=== PATIENT | female | born 1955 | race African-American/Black ===

== ENCOUNTER 2017-04-11 13:23 | Inpatient (IN) | payer OTHER ==
[2017-04-11 13:59] VITALS: BMI 19.0
--- NOTE | 2017-04-11 15:00 | HP ---
CIWA Score - CIWA Score Nausea/Vomitin Muscle Tremors: 3 Anxiety: 3 Agitation: 3 Paroxysmal Sweats: 2 Orientation: 0-Oriented Tacttile Disturbances: 2-Mild Itch/Numbness/Burn Auditory Disturbances: 2-Mild Harshness/Frighten Visual Disturbances: 0-None Headache: 2-Mild CIWA-Ar Total Score: 20 Admission ROS BHS - HPI Chief Complaint: i need help to stop drinking alcohol and cocaine Allergies/Adverse Reactions: Allergies Allergy/AdvReac Type Severity Reaction Status Date / Time No Known Drug Allergies Allergy Verified 04/11/17 16:27 erythromycin base AdvReac Severe Nausea Verified 04/11/17 16:27 History of Present Illness: this 61 years old black female with alcohol and cocaine dependence,withdrawal symptom,seeking detox,last in 2015 [facility] type 2 dm neuropathy s/p carpal tunnel surgery right in 2012 s/p neck sugery in 2012 hiv since 1992 weight loss longest period of sobriety for 10 years htn - Ebola screening Have you traveled outside of the country in the last 21 days: No (N) Have you had contact with anyone from an Ebola affected area: No Have you been sick,other than usual withdrawal symptoms: No Do you have a fever: No - Review of Systems Constitutional: Loss of Appetite, Malaise, Night Sweats, Changes in sleep, Weakness, Unintentional Wgt. Loss, Unexplained wgt Loss EENT: reports: Nose Congestion Respiratory: reports: No Symptoms reported, Other (history of asthma) Cardiac: reports: No Symptoms Reported GI: reports: Diarrhea, Nausea, Vomiting, Abdominal cramping : reports: No Symptoms Reported Musculoskeletal: reports: Back Pain, Muscle Pain Integumentary: reports: Dryness Neuro: reports: Headache, Tremors Endocrine: reports: No Symptoms Reported Hematology: reports: Anemia (history), Other (hiv) Psychiatric: reports: Depressed Patient History - Patient Medical History Hx Anemia: Yes (on iron) Hx Asthma: Yes (on albuterol inhaler) Hx Chronic Obstructive Pulmonary Disease (COPD): No Hx Cancer: No Hx Cardiac Disorders: No Hx Congestive Heart Failure: No Hx Hypertension: Yes (on med) Hx Pacemaker: No HX Cerebrovascular Accident: No Hx Seizures: No Hx Dementia: No Hx Diabetes: Yes (on metformin) Hx Gastrointestinal Disorders: Yes (gerd) Hx Liver Disease: No Hx Genitourinary Disorders: No Hx Sexually Transmitted Disorders: No Hx Renal Disease (ESRD): No Hx Thyroid Disease: No Hx Human Immunodeficiency Virus (HIV): Yes (since 1992) Hx Hepatitis C: No Hx Depression: Yes (on med) Hx Suicide Attempt: No Hx Bipolar Disorder: No Hx Schizophrenia: No Other Medical History: no sucidal,no homicidal,hiv,s/p nwck surgery,s/p conization in 1977 - Patient Surgical History Past Surgical History: Yes Hx Neurologic Surgery: Yes (s/p surgery of neck) Other Surgical History: 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 - PPD History Previous Implant?: Yes Documented Results: Positive w/o proof PPD to be Administered?: No - Reproductive History Patient is a Female of Child Bearing Age (11 -55 yrs old): Yes Patient : No - Smoking Cessation Smoking history: Current every day smoker Have you smoked in the past 12 months: Yes Cigars Per Day: 10 Initiated information on smoking cessation: Yes 'Breaking Loose' booklet given: 04/11/17 - Substance & Tx. History Hx Alcohol Use: Yes Hx Substance Use: Yes Substance Use Type: Alcohol, Cocaine Hx Substance Use Treatment: Yes ([facility] in 2017) - Substances Abused Alcohol Route: Oral Frequency: Daily Amount used: 3-4 22 oz beers Age of first use: 19 Date of Last Use: 04/11/17 Crack Route: Smoking Frequency: Daily Amount used: $10 Age of first use: 19 Date of Last Use: 04/11/17 Family Disease History - Family Disease History Family History: Denies Admission Physical Exam [facility] - Vital Signs Vital Signs: Vital Signs - 24 hr 04/11/17 13:56 Temperature 97.8 F Pulse Rate 95 H Respiratory 18 Rate Blood Pressure 123/75 - Physical General Appearance: Yes: Moderate Distress, Tremorous, Irritable, Sweating, Anxious HEENTM: Yes: JAGDEEP, Pharynx Normal, Nasal Congestion Respiratory: Yes: Lungs Clear, Normal Breath Sounds, No Respiratory Distress Neck: Yes: Within Normal Limits, Supple, Trachea in good position Breast: Yes: Breast Exam Deferred Cardiology: Yes: Within Normal Limits, Regular Rhythm, Regular Rate, S1, S2 Abdominal: Yes: Within Normal Limits, Normal Bowel Sounds, Non Tender, Flat, Soft Genitourinary: Yes: Within Normal Limits Back: Yes: Muscle Spasm Musculoskeletal: Yes: Back pain, Muscle Pain Extremities: Yes: Within Normal Limits, Normal Range of Motion, Tremors Neurological: Yes: film developer II-XII NML intact, Alert, Motor Strength 5/5, Other (s/p carpal tunnel syndrome right and neuropathy) Integumentary: Yes: Dry Lymphatic: Yes: Within Normal Limits - Diagnostic (1) Alcohol dependence with uncomplicated withdrawal Current Visit: Yes Status: Acute (2) Cocaine dependence Current Visit: Yes Status: Acute (3) HIV (human immunodeficiency virus infection) Current Visit: Yes Status: Acute (4) Weight loss Current Visit: Yes Status: Acute (5) Depression Current Visit: Yes Status: Acute (6) Nicotine dependence Current Visit: Yes Status: Acute (7) Asthma Current Visit: Yes Status: Acute (8) DM2 (diabetes mellitus, type 2) Current Visit: Yes Status: Acute (9) Essential (primary) hypertension Current Visit: Yes Status: Acute (10) Neuropathy Current Visit: Yes Status: Acute (11) History of carpal tunnel surgery Current Visit: Yes Status: Acute (12) History of carpal tunnel surgery of right wrist Current Visit: Yes Status: Acute (13) History of cervical cancer Current Visit: Yes Status: Acute (14) History of neck surgery Current Visit: Yes Status: Acute Cleared for Admission [facility] - Detox or Rehab [facility] Level of Care: Medically Managed Detox Regimen/Protocol: Librium S Breath Alcohol Content Breath Alcohol Content: 0.033 Urine Pregancy Test - Result Urine Test Results: Negative- NO Line Present Urine Drug Screen - Results Drug Screen Negative: No Urine Drug Screen Results: BAR-Cocaine
[2017-04-11] MEDS ORDERED: chlordiazePOXIDE HCL 25 MG CAPSULE PO ONE (15:39)
[2017-04-11] MEDS ORDERED: LOPERAMIDE HCL 2 MG CAPSULE PO PRN (15:39)
[2017-04-11] MEDS ORDERED: IBUPROFEN 400 MG TABLET (FP) PO PRN (15:39)
[2017-04-11] MEDS ORDERED: hydrOXYzine PAMOATE 25 MG CAPSULE (FP) PO PRN (15:39)
[2017-04-11] MEDS ORDERED: MAGNESIUM HYDROX 2400MG/30ML ORAL SUSPENSION 30 ML CUP PO PRN (15:39)
[2017-04-11] MEDS ORDERED: ACETAMINOPHEN 325 MG TABLET (FP) PO PRN (15:39)
[2017-04-11] MEDS ORDERED: chlordiazePOXIDE HCL 25 MG CAPSULE PO PRN (15:39)
[2017-04-11] MEDS ORDERED: MENTHOL/PHENOL 1 EACH UD MM PRN (15:39)
[2017-04-11] MEDS ORDERED: MAGNESIUM CITRATE 300 ML BOTTLE PO PRN (15:39)
[2017-04-11] MEDS ORDERED: P-EPHED 60MG/TRIPROLIDI 2.5MG TABLET PO PRN (15:39)
[2017-04-11] MEDS ORDERED: ALBUTEROL SO4 18 GM HFA INHALER IH PRN (15:46)
[2017-04-11] MEDS ORDERED: METHADONE HCL 10 MG TABLET (FOR DETOX USE ONLY) PO ONE ×2 (16:45→23:00)
[2017-04-11] MEDS: chlordiazePOXIDE HCL 25 MG CAPSULE PO SCH ×2 (17:36→22:24)
[2017-04-11 22:00] LABS: URINE APPEARANCE CLEAR; URINE BILIRUBIN NEGATIVE (NEGATIVE); URINE BLOOD NEGATIVE (NEGATIVE); URINE COLOR STRAW; URINE GLUCOSE (UA) NEGATIVE (NEGATIVE); URINE KETONE NEGATIVE (NEGATIVE); URINE LEUK ESTERASE NEGATIVE (NEGATIVE); URINE NITRITE NEGATIVE (NEGATIVE); URINE PROTEIN NEGATIVE (NEGATIVE); URINE UROBILINOGEN NEGATIVE mg/dL (0.2-1.0)
[2017-04-11] MEDS ORDERED: GABAPENTIN 1600 MG PO SCH (22:00)
[2017-04-11] MEDS: GABAPENTIN 400 MG CAPSULE (FP) PO SCH (22:24)
[2017-04-11] MEDS: THIAMINE HCL 100 MG TABLET (FP) PO SCH (22:24)
[2017-04-12] MEDS: chlordiazePOXIDE HCL 25 MG CAPSULE PO SCH ×4 (05:28→22:33)
[2017-04-12] MEDS: GABAPENTIN 400 MG CAPSULE (FP) PO SCH ×3 (05:28→22:32)
--- NOTE | 2017-04-12 09:38 | PN ---
S CIWA - CIWA Score Nausea/Vomitin Muscle Tremors: 3 Anxiety: 3 Agitation: 3 Paroxysmal Sweats: 1-Minimal Palms Moist Orientation: 0-Oriented Tacttile Disturbances: 1-Very Mild Itch/Numbness Auditory Disturbances: 1-Very Mild Visual Disturbances: 0-None Headache: 2-Mild CIWA-Ar Total Score: 17 BHS Progress Note (SOAP) Subjective: alert,irritable,anxious,interrupted sleep,tremor,pain in the body Objective: 04/12/17 09:36 Vital Signs Temperature 97.2 F L 04/12/17 06:00 Pulse Rate 83 04/12/17 06:00 Respiratory Rate 18 04/12/17 06:00 Blood Pressure 116/66 04/12/17 06:00 O2 Sat by Pulse Oximetry (%) ekg nsr with pac,lvh no chest pain,no sob,no dizziness Laboratory Last Values POC Glucometer 94 UNITS (80-120) 04/12/17 05:27 Urine Color Straw 04/11/17 21:00 Urine Appearance Clear 04/11/17 21:00 Urine pH 6.0 (5.0-8.0) 04/11/17 21:00 Ur Specific [place] 1.008 (1.001-1.035) 04/11/17 21:00 Urine Protein Negative (NEGATIVE) 04/11/17 21:00 Urine Glucose (UA) Negative (NEGATIVE) 04/11/17 21:00 Urine Ketones Negative (NEGATIVE) 04/11/17 21:00 Urine Blood Negative (NEGATIVE) 04/11/17 21:00 Urine Nitrite Negative (NEGATIVE) 04/11/17 21:00 Urine Bilirubin Negative (NEGATIVE) 04/11/17 21:00 Urine Urobilinogen Negative mg/dL (0.2-1.0) 04/11/17 21:00 labs pending Assessment: 04/12/17 09:38 withdrawal symptom Plan: continue detox,bgm monitoring
[2017-04-12] MEDS ORDERED: GABAPENTIN 400 MG CAPSULE (FP) PO SCH (10:00)
[2017-04-12] MEDS ORDERED: METHADONE HCL 10 MG TABLET (FOR DETOX USE ONLY) PO SCH (10:00)
[2017-04-12] MEDS: ABACAVIR/DOLUTEGRAVIR/LAMIVUDI (TRIUMEQ) TABLET -NF PO SCH (10:40)
[2017-04-12] MEDS: PRENATAL VITAMINS W/ FOLIC ACID TABLET (FP) PO SCH (10:40)
[2017-04-12] MEDS: LOSARTAN POTASSIUM 50 MG TABLET (FP) PO SCH (10:40)
[2017-04-12] MEDS: PANTOPRAZOLE 40 MG TABLET (FP) PO SCH (10:41)
[2017-04-12 10:47] LABS: MCH 31.9 pg (25.7-33.7); MEAN CELL VOLUME 96.8 fl (80-96); MEAN PLT VOLUME 8.2 fl (7.5-11.1); PLATELET COUNT 286 K/MM3 (134-434); RDW 13.8 % (11.6-15.6); WHITE BLOOD COUNT 4.4 K/mm3 (4.0-10.0)
[2017-04-12 11:13] LABS: ALBUMIN 3.1 g/dl (3.4-5.0); ANION GAP 6 (8-16); CALCIUM 9.1 mg/dL (8.5-10.1); CO2 29 mmol/L (21-32); GLUCOSE,RANDOM 106 mg/dL (74-106)
[2017-04-12 11:16] LABS: ALK PHOS 135 U/L (45-117); BILIRUBIN,TOTAL 0.2 mg/dL (0.2-1.0); CREATININE 0.9 mg/dL (0.55-1.02); SGOT/AST 15 U/L (15-37); SGPT/ALT 20 U/L (12-78)
--- NOTE | 2017-04-12 13:34 | CONSULT ---
[facility] Psychiatric Consult - Data Date of interview: 04/12/17 Admission source: [facility] Identifying data: First admission to [facility] for this 61 y/o AA female seeking detox treatment on for alcohol and cocaine (crack) dependence.Patient is ,a mother of two,domiciled,unemployed and supported on SSI benefits. Substance Abuse History: Discussed with patient in this session.Histoy confirmed by patient.Refer to current [facility] report for details : Smoking history : Current every day smoker. Have you smoked in the past 12 months: Yes. Cigars Per Day: 10. Initiated information on smoking cessation: Yes. ' Breaking Loose' booklet given: 04/11/17. - Substance & Tx. History. Hx Alcohol Use: Yes. Hx Substance Use: Yes. Substance Use Type: Alcohol, Cocaine. Hx Substance Use Treatment: Yes ([facility]erry in 2017). - Substances Abused. Alcohol. Route: Oral. Frequency: Daily. Amount used: 3-4 22 oz beers. Age of first use: 19. Date of Last Use: 04/11/17. Crack. Route: Smoking. Frequency: Daily. Amount used: $10. Age of first use: 19. Date of Last Use: 04/11/17 Medical History: Diabetes mellitus,anemia,bronchial asthma,HIV since 1992 (on ART medications),neuropathy,surgery for right carpal tunnel syndrome, hypertension,past history of neck surgery and conization of cervix (cancer) in 1977. Psychiatric History: Diagnosed with MDD but never admitted to a psychiatric inpatient service.Prescribed lexapro 10 mg/day and followed at the [facility] in the [place].Ms Gomez denies history of suicide attempts. Physical/Sexual Abuse/Trauma History: Patient denies history of abuse. Additional Comment: Urine Drug Screen Results: BAR-Cocaine.Noted. Mental Status Exam - Mental Status Exam Alert and Oriented to: Time, Place, Person Cognitive Function: Good Patient Appearance: Well Groomed (thin habitus,frail appearance,looks stated age ) Mood: Hopeful, Euthymic Affect: Appropriate, Normal Range Patient Behavior: Fatigued, Appropriate, Cooperative (friendly on approach) Speech Pattern: Clear, Appropriate Voice Loudness: Normal Thought Process: Intact, Goal Oriented Thought Disorder: Not Present Hallucinations: Denies Suicidal Ideation: Denies Homicidal Ideation: Denies Insight/Judgement: Fair Sleep: Poorly, Difficulty falling asleep Appetite: Good Muscle strength/Tone: Normal Gait/Station: Normal Psychiatric Findings - Problem List ([place] 1, 2,3) (1) Alcohol dependence with uncomplicated withdrawal Current Visit: Yes Status: Acute (2) Cocaine dependence Current Visit: Yes Status: Acute (3) Nicotine dependence Current Visit: Yes Status: Acute (4) MDD (major depressive disorder) Current Visit: Yes Status: Chronic Comment: As per self-report.On lexapro and currently in OPD care at [facility] in the [place]. (5) Insomnia Current Visit: Yes Status: Acute - Initial Treatment Plan Initial Treatment Plan: Psychoeducation.Sleep hygiene.Detoxification in progress.Medications : ambien 5 mg po hs prn + lexapro 10 mg po daily.Side effects/benefits of both drugs are discussed with the patient.She verbalizes consent to follow this careplan.Observation.
[2017-04-12 14:07] LABS: SICKLE CELL SCREEN NEGATIVE (NEGATIVE)
[2017-04-12] MEDS: guaiFENesin/D-METHORPHAN HB 10 ML UNIT-DOSE CUPS PO PRN (15:51)
[2017-04-12] MEDS: MAG HYDROX/AL HYDROX/SIMETH 30 ML UNIT-DOSE CUP PO PRN (19:35)
[2017-04-12] MEDS: ZOLPIDEM TARTRATE 5 MG TABLET PO PRN (22:32)
[2017-04-12] MEDS: THIAMINE HCL 100 MG TABLET (FP) PO SCH (22:33)
[2017-04-12 23:09] LABS: URINE LEUK ESTERASE Negative (NEGATIVE)
[2017-04-13] MEDS: GABAPENTIN 400 MG CAPSULE (FP) PO SCH ×3 (05:56→22:28)
[2017-04-13] MEDS: chlordiazePOXIDE HCL 25 MG CAPSULE PO SCH ×2 (05:56→10:34)
[2017-04-13] MEDS: NICOTINE POLACRILEX 2 MG GUM BC PRN ×2 (06:35→10:00)
[2017-04-13] MEDS: MAG HYDROX/AL HYDROX/SIMETH 30 ML UNIT-DOSE CUP PO PRN (08:24)
[2017-04-13] MEDS ORDERED: METHADONE HCL 5 MG TABLET (FOR DETOX USE ONLY) PO SCH (10:00)
[2017-04-13] MEDS: LOSARTAN POTASSIUM 50 MG TABLET (FP) PO SCH (10:34)
[2017-04-13] MEDS: ABACAVIR/DOLUTEGRAVIR/LAMIVUDI (TRIUMEQ) TABLET -NF PO SCH (10:34)
[2017-04-13] MEDS: PRENATAL VITAMINS W/ FOLIC ACID TABLET (FP) PO SCH (10:34)
[2017-04-13] MEDS: ESCITALOPRAM OXALATE 10 MG TABLET (FP) PO SCH (10:34)
[2017-04-13] MEDS: PANTOPRAZOLE 40 MG TABLET (FP) PO SCH (10:34)
[2017-04-13] MEDS: DOCUSATE SODIUM 100 MG CAPSULE (FP) PO SCH ×2 (10:37→22:29)
[2017-04-13] MEDS: HYDROCORTISONE 1% TOPICAL CREAM 30 GM TUBE TP SCH ×2 (10:37→22:29)
[2017-04-13] MEDS: FERROUS SO4 325 MG TABLET (FP) PO SCH (10:37)
--- NOTE | 2017-04-13 12:29 | PN ---
S CIWA - CIWA Score Nausea/Vomitin-Mild Nausea/No Vomiting Muscle Tremors: 4-Moderate,w/Arms Extend Anxiety: 3 Agitation: 3 Paroxysmal Sweats: 1-Minimal Palms Moist Orientation: 0-Oriented Tacttile Disturbances: 0-None Auditory Disturbances: 0-None Visual Disturbances: 0-None Headache: 0-None Present CIWA-Ar Total Score: 12 BHS Progress Note (SOAP) Subjective: tremor anxiety restlessness sweating Objective: 04/13/17 12:27 Vital Signs Temperature 98.1 F 04/13/17 10:00 Pulse Rate 91 H 04/13/17 10:00 Respiratory Rate 20 04/13/17 10:00 Blood Pressure 131/69 04/13/17 10:00 O2 Sat by Pulse Oximetry (%) Laboratory Last Values WBC 4.4 K/mm3 (4.0-10.0) 04/12/17 08:00 RBC 3.58 M/mm3 (3.60-5.2) L 04/12/17 08:00 Hgb 11.4 GM/dL (10.7-15.3) 04/12/17 08:00 Hct 34.7 % (32.4-45.2) 04/12/17 08:00 MCV 96.8 fl (80-96) H 04/12/17 08:00 MCH 31.9 pg (25.7-33.7) 04/12/17 08:00 MCHC 33.0 g/dl (32.0-36.0) 04/12/17 08:00 RDW 13.8 % (11.6-15.6) 04/12/17 08:00 Plt Count 286 K/MM3 (134-434) 04/12/17 08:00 MPV 8.2 fl (7.5-11.1) 04/12/17 08:00 Sickle Cell Screen Negative (NEGATIVE) 04/12/17 08:00 Sodium 140 mmol/L (136-145) 04/12/17 08:00 Potassium 4.5 mmol/L (3.5-5.1) 04/12/17 08:00 Chloride 105 mmol/L (98-107) 04/12/17 08:00 Carbon Dioxide 29 mmol/L (21-32) 04/12/17 08:00 Anion Gap 6 (8-16) L 04/12/17 08:00 BUN 27 mg/dL (7-18) H 04/12/17 08:00 Creatinine 0.9 mg/dL (0.55-1.02) 04/12/17 08:00 Creat Clearance w eGFR > 60 (>60) 04/12/17 08:00 POC Glucometer 179 UNITS (80-120) 04/13/17 05:54 Random Glucose 106 mg/dL (74-106) 04/12/17 08:00 Calcium 9.1 mg/dL (8.5-10.1) 04/12/17 08:00 Total Bilirubin 0.2 mg/dL (0.2-1.0) 04/12/17 08:00 AST 15 U/L (15-37) 04/12/17 08:00 ALT 20 U/L (12-78) 04/12/17 08:00 Alkaline Phosphatase 135 U/L (45-117) H 04/12/17 08:00 Total Protein 7.0 g/dl (6.4-8.2) 04/12/17 08:00 Albumin 3.1 g/dl (3.4-5.0) L 04/12/17 08:00 Urine Color Straw 04/11/17 21:00 Urine Appearance Clear 04/11/17 21:00 Urine pH 6.0 (5.0-8.0) 04/11/17 21:00 Ur Specific [place] 1.008 (1.001-1.035) 04/11/17 21:00 Urine Protein Negative (NEGATIVE) 04/11/17 21:00 Urine Glucose (UA) Negative (NEGATIVE) 04/11/17 21:00 Urine Ketones Negative (NEGATIVE) 04/11/17 21:00 Urine Blood Negative (NEGATIVE) 04/11/17 21:00 Urine Nitrite Negative (NEGATIVE) 04/11/17 21:00 Urine Bilirubin Negative (NEGATIVE) 04/11/17 21:00 Urine Urobilinogen Negative mg/dL (0.2-1.0) 04/11/17 21:00 Ur Leukocyte Esterase Negative (NEGATIVE) 04/11/17 21:00 RPR Titer Nonreactive (NONREACTIVE) 04/12/17 08:00 lab noted Assessment: 04/13/17 12:28 withdrawal sx Plan: continue detox
[2017-04-13] MEDS: AMMONIUM LACTATE 12% LOTION 225 GM BOTTLE TP SCH ×2 (14:49→22:29)
[2017-04-13] MEDS: FLUTICASONE PROP 0.05% 16 GM NASAL SPRAY NS SCH ×2 (14:49→22:28)
[2017-04-13] MEDS: chlordiazePOXIDE 5 MG CAPSULE PO SCH ×2 (17:40→22:29)
[2017-04-13] MEDS: THIAMINE HCL 100 MG TABLET (FP) PO SCH (22:28)
[2017-04-13] MEDS: ZOLPIDEM TARTRATE 5 MG TABLET PO PRN (22:28)
[2017-04-14] MEDS: chlordiazePOXIDE 5 MG CAPSULE PO SCH ×2 (05:51→10:32)
[2017-04-14] MEDS: GABAPENTIN 400 MG CAPSULE (FP) PO SCH ×3 (05:51→22:28)
[2017-04-14] MEDS: guaiFENesin/D-METHORPHAN HB 10 ML UNIT-DOSE CUPS PO PRN ×2 (06:04→14:11)
[2017-04-14] MEDS: FERROUS SO4 325 MG TABLET (FP) PO SCH (07:11)
[2017-04-14] MEDS: DOCUSATE SODIUM 100 MG CAPSULE (FP) PO SCH ×2 (10:32→22:28)
[2017-04-14] MEDS: ESCITALOPRAM OXALATE 10 MG TABLET (FP) PO SCH (10:32)
[2017-04-14] MEDS: ABACAVIR/DOLUTEGRAVIR/LAMIVUDI (TRIUMEQ) TABLET -NF PO SCH (10:33)
[2017-04-14] MEDS: LOSARTAN POTASSIUM 50 MG TABLET (FP) PO SCH (10:33)
[2017-04-14] MEDS: FLUTICASONE PROP 0.05% 16 GM NASAL SPRAY NS SCH ×2 (10:33→22:27)
[2017-04-14] MEDS: AMMONIUM LACTATE 12% LOTION 225 GM BOTTLE TP SCH ×2 (10:34→22:28)
[2017-04-14] MEDS: PRENATAL VITAMINS W/ FOLIC ACID TABLET (FP) PO SCH (10:35)
[2017-04-14] MEDS: HYDROCORTISONE 1% TOPICAL CREAM 30 GM TUBE TP SCH ×2 (10:35→22:28)
[2017-04-14] MEDS: PANTOPRAZOLE 40 MG TABLET (FP) PO SCH (10:41)
--- NOTE | 2017-04-14 10:58 | PN ---
BHS Progress Note (SOAP) Subjective: acid reflux little shakes Objective: 04/14/17 10:57 Vital Signs Temperature 99.5 F 04/14/17 10:44 Pulse Rate 94 H 04/14/17 10:44 Respiratory Rate 18 04/14/17 10:44 Blood Pressure 141/78 04/14/17 10:44 O2 Sat by Pulse Oximetry (%) aaox3 ambulating no acute distress Assessment: 04/14/17 10:57 mild withdrawal sx Plan: continue detox increase fluids zantac bid d/c in am
[2017-04-14] MEDS: chlordiazePOXIDE HCL 10 MG CAPSULE PO SCH ×2 (17:39→22:28)
[2017-04-14] MEDS: THIAMINE HCL 100 MG TABLET (FP) PO SCH (22:28)
[2017-04-14] MEDS: RANITIDINE HCL 150 MG TABLET (FP) PO SCH (22:28)
[2017-04-14] MEDS: ZOLPIDEM TARTRATE 5 MG TABLET PO PRN (22:28)
--- NOTE | 2017-04-15 01:58 | EKG ---
Test Reason : Blood Pressure : / mmHG Vent. Rate : 093 BPM Atrial Rate : 093 BPM P-R Int : 140 ms QRS Dur : 076 ms QT Int : 360 ms P-R-T Axes : 066 067 063 degrees QTc Int : 447 ms SINUS RHYTHM WITH PREMATURE ATRIAL COMPLEXES POSSIBLE LEFT ATRIAL ENLARGEMENT LEFT VENTRICULAR HYPERTROPHY ABNORMAL ECG NO PREVIOUS ECGS AVAILABLE Confirmed by SERGE ARENAS MD ([id number]) on 04/15/2017 1:57:46 AM Referred By: Confirmed By:SERGE ARENAS MD
[2017-04-15] MEDS: guaiFENesin/D-METHORPHAN HB 10 ML UNIT-DOSE CUPS PO PRN ×2 (02:09→08:26)
[2017-04-15] MEDS: chlordiazePOXIDE HCL 10 MG CAPSULE PO SCH ×2 (05:41→10:39)
[2017-04-15] MEDS: GABAPENTIN 400 MG CAPSULE (FP) PO SCH (05:41)
[2017-04-15] MEDS: FERROUS SO4 325 MG TABLET (FP) PO SCH (07:33)
--- NOTE | 2017-04-15 08:50 | DS ---
[facility] Detox Discharge Summary Admission Date: 04/11/17 Discharge Date: 04/15/17 - History Present History: Alcohol Dependence, Cocaine Dependence - Physical Exam Results Vital Signs: Vital Signs Temperature 98.6 F 04/15/17 06:25 Pulse Rate 82 04/15/17 06:25 Respiratory Rate 18 04/15/17 06:25 Blood Pressure 129/77 04/15/17 06:25 O2 Sat by Pulse Oximetry (%) - Treatment Hospital Course: Detox Protocol Followed, Detoxed Safely, Responded well, Discharged Condition Good, Rehab Referral Accepted - Medication Discharge Medications: Ambulatory Orders Abacavir/Dolutegravir/Lamivudi [Triumeq Tablet] 1 each PO DAILY 04/11/17 Escitalopram Oxalate [Lexapro -] 10 mg PO DAILY 04/11/17 Gabapentin 1,600 mg PO HS 04/11/17 Gabapentin 800 mg PO DAILY 04/11/17 Losartan Potassium [Cozaar -] 50 mg PO DAILY 04/11/17 Metformin Xr [Glucophage *Xr* -] 750 mg PO BID 04/11/17 Omeprazole 40 mg PO DAILY 04/11/17 Escitalopram Oxalate [Lexapro -] 10 mg PO DAILY #30 tablet 04/12/17 - Diagnosis (1) Alcohol dependence with uncomplicated withdrawal Current Visit: Yes Status: Chronic (2) Asthma Current Visit: Yes Status: Chronic Qualifiers: Asthma severity: moderate (3) Cocaine dependence Current Visit: Yes Status: Chronic Qualifiers: Substance use status: uncomplicated Qualified Code(s): F14.20 - Cocaine dependence, uncomplicated (4) DM2 (diabetes mellitus, type 2) Current Visit: Yes Status: Acute Qualifiers: Diabetes mellitus complication status: without complication (5) Depression Current Visit: Yes Status: Acute (6) Essential (primary) hypertension Current Visit: Yes Status: Acute (7) HIV (human immunodeficiency virus infection) Current Visit: Yes Status: Chronic (8) History of carpal tunnel surgery Current Visit: Yes Status: Acute (9) History of carpal tunnel surgery of right wrist Current Visit: Yes Status: Acute (10) History of cervical cancer Current Visit: No Status: Resolved (11) History of neck surgery Current Visit: Yes Status: Acute (12) Insomnia Current Visit: Yes Status: Acute (13) Neuropathy Current Visit: Yes Status: Acute (14) Nicotine dependence Current Visit: Yes Status: Chronic Qualifiers: Nicotine product type: cigarettes Substance use status: uncomplicated Qualified Code(s): F17.210 - Nicotine dependence, cigarettes, uncomplicated (15) Weight loss Current Visit: Yes Status: Acute (16) MDD (major depressive disorder) Current Visit: Yes Status: Chronic - AMA Did Patient Leave Against Medical Advice: No ([facility])
[2017-04-15] MEDS ORDERED: METHADONE HCL 10 MG TABLET (FOR DETOX USE ONLY) PO SCH (10:00)
[2017-04-15] MEDS: DOCUSATE SODIUM 100 MG CAPSULE (FP) PO SCH (10:28)
[2017-04-15] MEDS: LOSARTAN POTASSIUM 50 MG TABLET (FP) PO SCH (10:28)
[2017-04-15] MEDS: PRENATAL VITAMINS W/ FOLIC ACID TABLET (FP) PO SCH (10:28)
[2017-04-15] MEDS: ABACAVIR/DOLUTEGRAVIR/LAMIVUDI (TRIUMEQ) TABLET -NF PO SCH (10:28)
[2017-04-15] MEDS: FLUTICASONE PROP 0.05% 16 GM NASAL SPRAY NS SCH (10:28)
[2017-04-15] MEDS: RANITIDINE HCL 150 MG TABLET (FP) PO SCH (10:28)
[2017-04-15] MEDS: ESCITALOPRAM OXALATE 10 MG TABLET (FP) PO SCH (10:28)
[2017-04-15] MEDS: HYDROCORTISONE 1% TOPICAL CREAM 30 GM TUBE TP SCH (10:30)
[2017-04-15] MEDS: AMMONIUM LACTATE 12% LOTION 225 GM BOTTLE TP SCH (10:30)
[2017-04-15 13:07] VITALS: BP 120/77; PULSE 100; TEMP 98.1
[2017-04-16] MEDS ORDERED: METHADONE HCL 5 MG TABLET (FOR DETOX USE ONLY) PO SCH (06:00)
== END 2017-04-15 13:27 | disposition home or self-care (01) | DRG 774 ==
LOC: EDSEX 13:23 → YASAS 13:23 → Y6N 16:23
PROVIDERS: ADMIT Internal Medicine; ATTEND Internal Medicine
PROC: HZ2ZZZZ Detoxification Services for Substance Abuse Treatment (ICD-10-PCS; principal; 2017-04-11)
DX: F10.230 Alcohol dependence with withdrawal, uncomplicated (principal); F14.20 Cocaine dependence, uncomplicated; F17.210 Nicotine dependence, cigarettes, uncomplicated; F32.9 Major depressive disorder, single episode, unspecified; I10 Essential (primary) hypertension; J45.909 Unspecified asthma, uncomplicated; E11.9 Type 2 diabetes mellitus without complications; Z21 Asymptomatic human immunodeficiency virus [HIV] infection status; G47.00 Insomnia, unspecified; G62.9 Polyneuropathy, unspecified; K21.9 Gastro-esophageal reflux disease without esophagitis; Z85.41 Personal history of malignant neoplasm of cervix uteri; Z79.84 Long term (current) use of oral hypoglycemic drugs; Z87.898 Personal history of other specified conditions
CPT/HCPCS: 36415; 80053; 81003; 85027; 85660; 86593; 86803; 93005; 93010

== ENCOUNTER 2017-04-30 14:21 | Inpatient (IN) | payer OTHER ==
[2017-04-30 14:43] VITALS: BMI 17.7
--- NOTE | 2017-04-30 15:31 | HP ---
CIWA Score - CIWA Score Nausea/Vomitin Muscle Tremors: 3 Anxiety: 3 Agitation: 3 Paroxysmal Sweats: 2 Orientation: 0-Oriented Tacttile Disturbances: 2-Mild Itch/Numbness/Burn Auditory Disturbances: 2-Mild Harshness/Frighten Visual Disturbances: 2-Mild Sensitivity Headache: 2-Mild CIWA-Ar Total Score: 22 Admission ROS BHS - HPI Chief Complaint: i need help to stop drinking alcohol and cocaine Allergies/Adverse Reactions: Allergies Allergy/AdvReac Type Severity Reaction Status Date / Time No Known Drug Allergies Allergy Verified 04/30/17 15:27 erythromycin base AdvReac Severe Nausea Verified 04/30/17 15:27 History of Present Illness: this 61 years old female with alcohol and cocaine dependence,seeking detox,last detox 04/11/17 to 04/15/17 history of hiv since 1992 type 2 dm,anemia,htn, neuropathy htn eczema syncope in the past nicotine dependence longest period of sobriety 10 years depression stated relapsed lately - Ebola screening Have you traveled outside of the country in the last 21 days: No (N) Have you had contact with anyone from an Ebola affected area: No Have you been sick,other than usual withdrawal symptoms: No Do you have a fever: No - Review of Systems Constitutional: Loss of Appetite, Malaise, Night Sweats, Changes in sleep, Weakness, Unintentional Wgt. Loss EENT: reports: Nose Congestion Respiratory: reports: No Symptoms reported Cardiac: reports: Palpitations GI: reports: Nausea, Vomiting, Abdominal cramping : reports: No Symptoms Reported Musculoskeletal: reports: Back Pain, Muscle Pain Integumentary: reports: Dryness Neuro: reports: Headache, Tremors Endocrine: reports: No Symptoms Reported Hematology: reports: No Symptoms Reported, Anemia (hiv), Other Psychiatric: reports: Depressed Patient History - Patient Medical History Hx Anemia: Yes (on iron) Hx Asthma: Yes (on albuterol inhaler) Hx Chronic Obstructive Pulmonary Disease (COPD): No Hx Cancer: No Hx Cardiac Disorders: No Hx Congestive Heart Failure: No Hx Hypertension: Yes (on med) Hx Pacemaker: No HX Cerebrovascular Accident: No Hx Seizures: No Hx Dementia: No Hx Diabetes: Yes (on metformin) Hx Gastrointestinal Disorders: Yes (gerd) Hx Liver Disease: No Hx Genitourinary Disorders: No Hx Sexually Transmitted Disorders: No Hx Renal Disease (ESRD): No Hx Thyroid Disease: No Hx Human Immunodeficiency Virus (HIV): Yes (since 1992) Hx Hepatitis C: No Hx Depression: Yes (on med) Hx Suicide Attempt: No Hx Bipolar Disorder: No Hx Schizophrenia: No Other Medical History: no suicidal,no honicidal - Patient Surgical History Past Surgical History: Yes Hx Neurologic Surgery: Yes (s/p surgery of neck) Other Surgical History: 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 - Reproductive History Patient is a Female of Child Bearing Age (11 -55 yrs old): Yes Patient : No - Smoking Cessation Smoking history: Current every day smoker Have you smoked in the past 12 months: Yes Aproximately how many cigarettes per day: 10 Cigars Per Day: 10 Hx Chewing Tobacco Use: No Initiated information on smoking cessation: Yes 'Breaking Loose' booklet given: 04/30/17 - Substance & Tx. History Hx Alcohol Use: Yes Hx Substance Use: Yes Substance Use Type: Alcohol, Cocaine Hx Substance Use Treatment: Yes ([facility] 04/11/17 to 04/15/17) - Substances Abused Alcohol Route: Oral Frequency: Daily Amount used: 3-4 40 OZ BEER Age of first use: 19 Date of Last Use: 04/30/17 Cocaine Route: Smoking Frequency: Daily Amount used: $10-500 Age of first use: 19 Date of Last Use: 04/29/17 Family Disease History - Family Disease History Family History: Denies Admission Physical Exam BHS - Vital Signs Vital Signs: Vital Signs - 24 hr 04/30/17 14:41 Temperature 99 F Pulse Rate 110 H Respiratory 18 Rate Blood Pressure 140/93 - Physical General Appearance: Yes: Moderate Distress, Tremorous, Irritable, Sweating, Anxious HEENTM: Yes: Normal ENT Inspection, JAGEDEP, Pharynx Normal Respiratory: Yes: Lungs Clear, Normal Breath Sounds, No Respiratory Distress Neck: Yes: Within Normal Limits, Supple, Trachea in good position Breast: Yes: Breast Exam Deferred Cardiology: Yes: Within Normal Limits, Regular Rhythm, Regular Rate, S1, S2 Abdominal: Yes: Within Normal Limits, Normal Bowel Sounds, Non Tender, Flat, Soft Genitourinary: Yes: Within Normal Limits Back: Yes: Muscle Spasm Musculoskeletal: Yes: Back pain, Muscle Pain Extremities: Yes: Tremors 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, Fully Oriented, Alert, Motor Strength 5/5 Integumentary: Yes: Dry Lymphatic: Yes: Within Normal Limits - Diagnostic (1) Alcohol dependence with uncomplicated withdrawal Current Visit: No Status: Chronic (2) DM2 (diabetes mellitus, type 2) Current Visit: No Status: Acute Qualifiers: Diabetes mellitus complication status: without complication (3) Essential (primary) hypertension Current Visit: No Status: Acute (4) History of carpal tunnel surgery Current Visit: No Status: Acute (5) History of carpal tunnel surgery of right wrist Current Visit: No Status: Acute (6) History of neck surgery Current Visit: No Status: Acute (7) Insomnia Current Visit: No Status: Acute (8) Neuropathy Current Visit: No Status: Acute (9) Weight loss Current Visit: No Status: Acute (10) Asthma Current Visit: No Status: Chronic Qualifiers: Asthma severity: moderate (11) Cocaine dependence Current Visit: No Status: Chronic Qualifiers: Substance use status: uncomplicated Qualified Code(s): F14.20 - Cocaine dependence, uncomplicated (12) HIV (human immunodeficiency virus infection) Current Visit: No Status: Chronic (13) MDD (major depressive disorder) Current Visit: No Status: Chronic Comment: As per self-report.On lexapro and currently in OPD care at [facility] in the [place]. (14) Nicotine dependence Current Visit: No Status: Chronic Qualifiers: Nicotine product type: cigarettes Substance use status: uncomplicated Qualified Code(s): F17.210 - Nicotine dependence, cigarettes, uncomplicated (15) History of cervical cancer Current Visit: No Status: Resolved Cleared for Admission S - Detox or Rehab [facility] Level of Care: Medically Managed Detox Regimen/Protocol: Librium S Breath Alcohol Content Breath Alcohol Content: 0 Urine Pregancy Test - Result Urine Test Results: Negative- NO Line Present Urine Drug Screen - Results Drug Screen Negative: No Urine Drug Screen Results: BAR-Cocaine, BZO-Benzodiazepines
[2017-04-30] MEDS ORDERED: ACETAMINOPHEN 325 MG TABLET (FP) PO PRN (15:46)
[2017-04-30] MEDS ORDERED: MAGNESIUM HYDROX 2400MG/30ML ORAL SUSPENSION 30 ML CUP PO PRN (15:46)
[2017-04-30] MEDS ORDERED: MENTHOL/PHENOL 1 EACH UD MM PRN (15:46)
[2017-04-30] MEDS ORDERED: chlordiazePOXIDE HCL 25 MG CAPSULE PO ONE (15:46)
[2017-04-30] MEDS ORDERED: MAGNESIUM CITRATE 300 ML BOTTLE PO PRN (15:46)
[2017-04-30] MEDS ORDERED: chlordiazePOXIDE HCL 25 MG CAPSULE PO PRN (15:46)
[2017-04-30] MEDS ORDERED: LOPERAMIDE HCL 2 MG CAPSULE PO PRN (15:46)
[2017-04-30] MEDS ORDERED: P-EPHED 60MG/TRIPROLIDI 2.5MG TABLET PO PRN (15:46)
[2017-04-30] MEDS ORDERED: MAG HYDROX/AL HYDROX/SIMETH 30 ML UNIT-DOSE CUP PO PRN (15:46)
[2017-04-30] MEDS: chlordiazePOXIDE HCL 25 MG CAPSULE PO SCH ×2 (18:07→22:06)
[2017-04-30] MEDS: NICOTINE 21 MG/24 HOURS TOPICAL PATCH TD SCH (18:10)
[2017-04-30] MEDS: AMMONIUM LACTATE 12% LOTION 225 GM BOTTLE TP SCH (18:10)
--- NOTE | 2017-04-30 19:32 | PN ---
BHS Progress Note Note: RECEIVED NURSE CALL THAT THE PATIENT REPORTS HAVING VAGINAL DISCHARGE REQUESTS VAGINAL CREAM
[2017-04-30] MEDS: FLUTICASONE PROP 0.05% 16 GM NASAL SPRAY NS SCH (22:04)
[2017-04-30] MEDS: ATORVASTATIN CA 20 MG TABLET (FP) PO SCH (22:05)
[2017-04-30] MEDS: THIAMINE HCL 100 MG TABLET (FP) PO SCH (22:05)
[2017-04-30] MEDS: CLOTRIMAZOLE 1% VAGINAL CREAM WITH APPLICATOR 45 GM TUBE VG SCH (22:07)
[2017-04-30] MEDS: HYDROCORTISONE 1% TOPICAL CREAM 30 GM TUBE TP SCH (22:29)
[2017-04-30 23:46] LABS: URINE APPEARANCE TURBID; URINE BILIRUBIN NEGATIVE (NEGATIVE); URINE BLOOD 1+ (NEGATIVE); URINE COLOR YELLOW; URINE GLUCOSE (UA) NEGATIVE (NEGATIVE); URINE KETONE TRACE (NEGATIVE); URINE NITRITE NEGATIVE (NEGATIVE); URINE PROTEIN NEGATIVE (NEGATIVE); URINE UROBILINOGEN NEGATIVE mg/dL (0.2-1.0)
[2017-04-30 23:49] LABS: URINE LEUK ESTERASE 3+ (NEGATIVE)
[2017-05-01 01:17] LABS: URINE BACTERIA RARE /hpf (NONE SEEN)
[2017-05-01] MEDS: chlordiazePOXIDE HCL 25 MG CAPSULE PO SCH ×4 (06:07→22:19)
[2017-05-01] MEDS: guaiFENesin/D-METHORPHAN HB 10 ML UNIT-DOSE CUPS PO PRN (06:08)
[2017-05-01] MEDS: FERROUS SO4 325 MG TABLET (FP) PO SCH (07:10)
--- NOTE | 2017-05-01 08:04 | CONSULT ---
[facility] Psychiatric Consult - Data Date of interview: 05/01/17 Admission source: [facility] Identifying data: This is 61 yearsold female with history of MDD, wityh no psychiatric hospitalization history, with multiple medical history, intoxicated with: Alcohol, Cocaine and Nicotine Substance Abuse History: Smoking history: Current every day smoker. Have you smoked in the past 12 months: Yes. Aproximately how many cigarettes per day: 10. Cigars Per Day: 10. Hx Chewing Tobacco Use: No. Initiated information on smoking cessation: Yes. 'Breaking Loose' booklet given: 04/30/17. - Substance & Tx. History. Hx Alcohol Use: Yes. Hx Substance Use: Yes. Substance Use Type : Alcohol, Cocaine. Hx Substance Use Treatment: Yes ([facility] 04/11/17 to 04/15/17) . - Substances Abused. Alcohol. Route: Oral. Frequency: Daily. Amount used: 3-4 40 OZ BEER. Age of first use: 19. Date of Last Use: 04/30/17. Cocaine. Route: Smoking. Frequency: Daily. Amount used: $10-500. Age of first use: 19. Date of Last Use: 04/29/17 Medical History: Cervical Cancer history, Weight loss history, Asthma, HIV+ hisotry, DM-2, HTN, history of Nec surgery Psychiatric History: Patient reports history of depression,. reports aking prior to admission: Lexapro 10mg poqd. Denies suicidal history Physical/Sexual Abuse/Trauma History: Denies Additional Comment: Lexapro 10mg poqd Mental Status Exam - Mental Status Exam Alert and Oriented to: Person Cognitive Function: Fair Patient Appearance: Unkempt Mood: Anxious Affect: Labile Patient Behavior: Cooperative Speech Pattern: Appropriate Voice Loudness: Normal Thought Process: Goal Oriented Thought Disorder: Being Controlled Hallucinations: Denies Suicidal Ideation: Denies Homicidal Ideation: Denies Insight/Judgement: Fair Sleep: Difficulty falling asleep Appetite: Weight loss Muscle strength/Tone: Normal Gait/Station: Normal Additional Comments: Lexapro 10mg poqd Psychiatric Findings - Problem List ([place] 1, 2,3) (1) Depression Current Visit: No Status: Acute (2) Neuropathy Current Visit: No Status: Acute (3) Alcohol dependence with uncomplicated withdrawal Current Visit: No Status: Chronic (4) Cocaine dependence Current Visit: No Status: Chronic Qualifiers: Substance use status: uncomplicated Qualified Code(s): F14.20 - Cocaine dependence, uncomplicated (5) MDD (major depressive disorder) Current Visit: No Status: Chronic Comment: As per self-report.On lexapro and currently in [facility] care at [facility] in the [place]. (6) Nicotine dependence Current Visit: No Status: Chronic Qualifiers: Nicotine product type: cigarettes Substance use status: uncomplicated Qualified Code(s): F17.210 - Nicotine dependence, cigarettes, uncomplicated (7) Drug-induced mood disorder Current Visit: Yes Status: Acute - Initial Treatment Plan Initial Treatment Plan: Lexapro 10mg poqd
[2017-05-01 09:46] LABS: CHLORIDE 104 mmol/L (98-107); POTASSIUM 4.1 mmol/L (3.5-5.1); SODIUM 136 mmol/L (136-145)
[2017-05-01 09:53] LABS: ALK PHOS 129 U/L (45-117); ANION GAP 7 (8-16); BILIRUBIN,TOTAL 0.4 mg/dL (0.2-1.0); BLOOD UREA NITROGEN 15 mg/dL (7-18); CALCIUM 8.7 mg/dL (8.5-10.1); CO2 25 mmol/L (21-32); CREATININE 0.9 mg/dL (0.55-1.02); GLUCOSE,RANDOM 213 mg/dL (74-106); SGOT/AST 11 U/L (15-37); SGPT/ALT 18 U/L (12-78); TOT PROT 6.9 g/dl (6.4-8.2)
[2017-05-01] MEDS: PATIENT'S OWN MEDICATION (NON-FORMULARY) (Omeprazole [Omeprazole] 40 MG) PO SCH (10:02)
[2017-05-01] MEDS: ABACAVIR/DOLUTEGRAVIR/LAMIVUDI (TRIUMEQ) TABLET -NF PO SCH (10:02)
[2017-05-01] MEDS: FLUTICASONE PROP 0.05% 16 GM NASAL SPRAY NS SCH ×2 (10:02→22:18)
[2017-05-01] MEDS: PRENATAL VITAMINS W/ FOLIC ACID TABLET (FP) PO SCH (10:03)
[2017-05-01] MEDS: HYDROCORTISONE 1% TOPICAL CREAM 30 GM TUBE TP SCH ×2 (10:03→22:19)
[2017-05-01] MEDS: LOSARTAN POTASSIUM 50 MG TABLET (FP) PO SCH (10:03)
[2017-05-01] MEDS: ESCITALOPRAM OXALATE 10 MG TABLET (FP) PO SCH (10:03)
[2017-05-01] MEDS: GABAPENTIN 400 MG CAPSULE (FP) PO SCH (10:05)
[2017-05-01] MEDS: NICOTINE 21 MG/24 HOURS TOPICAL PATCH TD SCH (10:06)
[2017-05-01 10:24] LABS: HEMATOCRIT 32.1 % (32.4-45.2); HEMOGLOBIN 10.5 GM/dL (10.7-15.3); MCH 31.4 pg (25.7-33.7); MCHC 32.7 g/dl (32.0-36.0); MEAN PLT VOLUME 8.4 fl (7.5-11.1); PLATELET COUNT 343 K/MM3 (134-434); RBC 3.35 M/mm3 (3.60-5.2); RDW 13.9 % (11.6-15.6); WHITE BLOOD COUNT 5.9 K/mm3 (4.0-10.0)
--- NOTE | 2017-05-01 10:26 | PN ---
S CIWA - CIWA Score Nausea/Vomitin-No Nausea/No Vomiting Muscle Tremors: 4-Moderate,w/Arms Extend Anxiety: 3 Agitation: 3 Paroxysmal Sweats: 3 Orientation: 0-Oriented Tacttile Disturbances: 0-None Auditory Disturbances: 0-None Visual Disturbances: 0-None Headache: 0-None Present CIWA-Ar Total Score: 13 [facility] Progress Note (SOAP) Subjective: sweats shakes interrupted sleep agitation body aches Objective: 05/01/17 10:25 Vital Signs Temperature 100.2 F H 05/01/17 04:00 Pulse Rate 103 H 05/01/17 04:00 Respiratory Rate 18 05/01/17 04:00 Blood Pressure 140/85 05/01/17 04:00 O2 Sat by Pulse Oximetry (%) Laboratory Tests 04/30/17 04/30/17 05/01/17 15:49 16:40 06:32 Sodium Potassium Chloride Carbon Dioxide Anion Gap BUN Creatinine Creat Clearance w eGFR POC Glucometer 225 162 Random Glucose Calcium Total Bilirubin AST ALT Alkaline Phosphatase Total Protein Albumin Urine Color Yellow Urine Appearance Turbid Urine pH 5.0 Ur Specific [place] 1.023 Urine Protein Negative Urine Glucose (UA) Negative Urine Ketones Trace H Urine Blood 1+ H Urine Nitrite Negative Urine Bilirubin Negative Urine Urobilinogen Negative Urine WBC (Auto) 11 Urine RBC (Auto) 2 Urine Bacteria Rare 05/01/17 07:00 Sodium 136 Potassium 4.1 Chloride 104 Carbon Dioxide 25 Anion Gap 7 L BUN 15 D Creatinine 0.9 Creat Clearance w eGFR > 60 POC Glucometer Random Glucose 213 H D Calcium 8.7 Total Bilirubin 0.4 D AST 11 L D ALT 18 Alkaline Phosphatase 129 H Total Protein 6.9 Albumin 3.0 L Urine Color Urine Appearance Urine pH Ur Specific [place] Urine Protein Urine Glucose (UA) Urine Ketones Urine Blood Urine Nitrite Urine Bilirubin Urine Urobilinogen Urine WBC (Auto) Urine RBC (Auto) Urine Bacteria u/a lab repeated aaox3 ambulating no acute distress Assessment: 05/01/17 10:26 withdrawal sx Plan: continue detox increase fluids labs pending
[2017-05-01] MEDS ORDERED: FLU VACCINE QUAD 60 MCG/0.5 ML (MDV 17-18) IM ONE (12:00)
[2017-05-01] MEDS: IBUPROFEN 400 MG TABLET (FP) PO PRN ×2 (12:30→20:45)
--- NOTE | 2017-05-01 12:33 | EKG ---
Test Reason : Blood Pressure : / mmHG Vent. Rate : 090 BPM Atrial Rate : 090 BPM P-R Int : 138 ms QRS Dur : 074 ms QT Int : 338 ms P-R-T Axes : 059 053 045 degrees QTc Int : 413 ms SINUS RHYTHM WITH PREMATURE ATRIAL COMPLEXES POSSIBLE LEFT ATRIAL ENLARGEMENT LEFT VENTRICULAR HYPERTROPHY NONSPECIFIC ST ABNORMALITY ABNORMAL ECG WHEN COMPARED WITH ECG OF 11-APR-2017 17:28, NO SIGNIFICANT CHANGE WAS FOUND Confirmed by MAGALY TOWNSEND, PATRICK ([id number]) on 05/01/2017 12:33:33 PM Referred By: Confirmed By:PATRICK MCKENZIE MD
[2017-05-01 15:58] LABS: URINE APPEARANCE SLCLOUDY; URINE BILIRUBIN NEGATIVE (NEGATIVE); URINE BLOOD NEGATIVE (NEGATIVE); URINE COLOR LTYELLOW; URINE GLUCOSE (UA) NEGATIVE (NEGATIVE); URINE KETONE NEGATIVE (NEGATIVE); URINE NITRITE NEGATIVE (NEGATIVE); URINE PROTEIN NEGATIVE (NEGATIVE); URINE UROBILINOGEN NEGATIVE mg/dL (0.2-1.0)
[2017-05-01 16:14] LABS: URINE LEUK ESTERASE 3+ (NEGATIVE)
[2017-05-01] MEDS: AMMONIUM LACTATE 12% LOTION 225 GM BOTTLE TP SCH (17:39)
[2017-05-01] MEDS: CLOTRIMAZOLE 1% VAGINAL CREAM WITH APPLICATOR 45 GM TUBE VG SCH (22:18)
[2017-05-01] MEDS: ATORVASTATIN CA 20 MG TABLET (FP) PO SCH (22:19)
[2017-05-01] MEDS: THIAMINE HCL 100 MG TABLET (FP) PO SCH (22:20)
[2017-05-02] MEDS: chlordiazePOXIDE HCL 25 MG CAPSULE PO SCH ×2 (05:41→10:08)
[2017-05-02] MEDS: FERROUS SO4 325 MG TABLET (FP) PO SCH (08:04)
[2017-05-02] MEDS: ESCITALOPRAM OXALATE 10 MG TABLET (FP) PO SCH (10:08)
[2017-05-02] MEDS: FLUTICASONE PROP 0.05% 16 GM NASAL SPRAY NS SCH ×2 (10:08→22:11)
[2017-05-02] MEDS: PRENATAL VITAMINS W/ FOLIC ACID TABLET (FP) PO SCH (10:08)
[2017-05-02] MEDS: GABAPENTIN 400 MG CAPSULE (FP) PO SCH (10:08)
[2017-05-02] MEDS: LOSARTAN POTASSIUM 50 MG TABLET (FP) PO SCH (10:08)
[2017-05-02] MEDS: NICOTINE 21 MG/24 HOURS TOPICAL PATCH TD SCH (10:09)
[2017-05-02] MEDS: HYDROCORTISONE 1% TOPICAL CREAM 30 GM TUBE TP SCH ×2 (10:09→22:11)
[2017-05-02] MEDS: ABACAVIR/DOLUTEGRAVIR/LAMIVUDI (TRIUMEQ) TABLET -NF PO SCH (10:10)
[2017-05-02] MEDS: PATIENT'S OWN MEDICATION (NON-FORMULARY) (Omeprazole [Omeprazole] 40 MG) PO SCH (10:10)
--- NOTE | 2017-05-02 10:26 | PN ---
S CIWA - CIWA Score Nausea/Vomitin-No Nausea/No Vomiting Muscle Tremors: 4-Moderate,w/Arms Extend Anxiety: 2 Agitation: 3 Paroxysmal Sweats: 3 Orientation: 0-Oriented Tacttile Disturbances: 0-None Auditory Disturbances: 0-None Visual Disturbances: 0-None Headache: 0-None Present CIWA-Ar Total Score: 12 S Progress Note (SOAP) Subjective: sweats shakes interrupted sleep body aches tired Objective: 05/02/17 10:25 Vital Signs Temperature 99.3 F 05/02/17 09:39 Pulse Rate 90 05/02/17 09:39 Respiratory Rate 18 05/02/17 09:39 Blood Pressure 135/78 05/02/17 09:39 O2 Sat by Pulse Oximetry (%) Laboratory Tests 04/30/17 04/30/17 05/01/17 15:49 16:40 06:32 WBC RBC Hgb Hct MCV MCH MCHC RDW Plt Count MPV Sodium Potassium Chloride Carbon Dioxide Anion Gap BUN Creatinine Creat Clearance w eGFR POC Glucometer 225 162 Random Glucose Calcium Total Bilirubin AST ALT Alkaline Phosphatase Total Protein Albumin Urine Color Yellow Urine Appearance Turbid Urine pH 5.0 Ur Specific [place] 1.023 Urine Protein Negative Urine Glucose (UA) Negative Urine Ketones Trace H Urine Blood 1+ H Urine Nitrite Negative Urine Bilirubin Negative Urine Urobilinogen Negative Ur Leukocyte Esterase 2+ H Urine WBC (Auto) 11 Urine RBC (Auto) 2 Urine Bacteria Rare RPR Titer 05/01/17 05/01/17 05/01/17 07:00 07:00 07:00 WBC 5.9 D RBC 3.35 L Hgb 10.5 L Hct 32.1 L MCV 96.0 MCH 31.4 MCHC 32.7 RDW 13.9 Plt Count 343 MPV 8.4 Sodium 136 Potassium 4.1 Chloride 104 Carbon Dioxide 25 Anion Gap 7 L BUN 15 D Creatinine 0.9 Creat Clearance w eGFR > 60 POC Glucometer Random Glucose 213 H D Calcium 8.7 Total Bilirubin 0.4 D AST 11 L D ALT 18 Alkaline Phosphatase 129 H Total Protein 6.9 Albumin 3.0 L Urine Color Urine Appearance Urine pH Ur Specific [place] Urine Protein Urine Glucose (UA) Urine Ketones Urine Blood Urine Nitrite Urine Bilirubin Urine Urobilinogen Ur Leukocyte Esterase Urine WBC (Auto) Urine RBC (Auto) Urine Bacteria RPR Titer Nonreactive 05/01/17 05/01/17 05/02/17 12:55 16:38 05:41 WBC RBC Hgb Hct MCV MCH MCHC RDW Plt Count MPV Sodium Potassium Chloride Carbon Dioxide Anion Gap BUN Creatinine Creat Clearance w eGFR POC Glucometer 177 165 Random Glucose Calcium Total Bilirubin AST ALT Alkaline Phosphatase Total Protein Albumin Urine Color Ltyellow Urine Appearance Slcloudy Urine pH 5.0 Ur Specific [place] 1.009 Urine Protein Negative Urine Glucose (UA) Negative Urine Ketones Negative Urine Blood Negative Urine Nitrite Negative Urine Bilirubin Negative Urine Urobilinogen Negative Ur Leukocyte Esterase Urine WBC (Auto) Urine RBC (Auto) Urine Bacteria RPR Titer aaox3 ambulating no acute distress Assessment: 05/02/17 10:26 withdrawal sx Plan: continue detox increase fluids
[2017-05-02] MEDS: IBUPROFEN 400 MG TABLET (FP) PO PRN (16:06)
[2017-05-02] MEDS: chlordiazePOXIDE 5 MG CAPSULE PO SCH ×2 (17:10→22:09)
[2017-05-02] MEDS: AMMONIUM LACTATE 12% LOTION 225 GM BOTTLE TP SCH (17:14)
[2017-05-02] MEDS: THIAMINE HCL 100 MG TABLET (FP) PO SCH (22:08)
[2017-05-02] MEDS: ATORVASTATIN CA 20 MG TABLET (FP) PO SCH (22:08)
[2017-05-02] MEDS: CLOTRIMAZOLE 1% VAGINAL CREAM WITH APPLICATOR 45 GM TUBE VG SCH (22:12)
[2017-05-03] MEDS: chlordiazePOXIDE 5 MG CAPSULE PO SCH ×2 (05:43→10:29)
[2017-05-03] MEDS: FERROUS SO4 325 MG TABLET (FP) PO SCH (07:46)
[2017-05-03] MEDS: HYDROCORTISONE 1% TOPICAL CREAM 30 GM TUBE TP SCH ×2 (10:28→23:12)
[2017-05-03] MEDS: PATIENT'S OWN MEDICATION (NON-FORMULARY) (Omeprazole [Omeprazole] 40 MG) PO SCH (10:28)
[2017-05-03] MEDS: FLUTICASONE PROP 0.05% 16 GM NASAL SPRAY NS SCH ×2 (10:28→23:12)
[2017-05-03] MEDS: LOSARTAN POTASSIUM 50 MG TABLET (FP) PO SCH (10:29)
[2017-05-03] MEDS: PRENATAL VITAMINS W/ FOLIC ACID TABLET (FP) PO SCH (10:29)
[2017-05-03] MEDS: ESCITALOPRAM OXALATE 10 MG TABLET (FP) PO SCH (10:29)
[2017-05-03] MEDS: GABAPENTIN 400 MG CAPSULE (FP) PO SCH (10:29)
[2017-05-03] MEDS: ABACAVIR/DOLUTEGRAVIR/LAMIVUDI (TRIUMEQ) TABLET -NF PO SCH (10:29)
[2017-05-03] MEDS: NICOTINE 21 MG/24 HOURS TOPICAL PATCH TD SCH (11:14)
--- NOTE | 2017-05-03 11:46 | PN ---
S Progress Note (SOAP) Subjective: ALERT,IRRITABLE,INTERRUPTED SLEEP Objective: 05/03/17 11:45 Vital Signs Temperature 98 F 05/03/17 10:17 Pulse Rate 97 H 05/03/17 10:17 Respiratory Rate 18 05/03/17 10:17 Blood Pressure 138/72 05/03/17 10:17 O2 Sat by Pulse Oximetry (%) Assessment: 05/03/17 11:45 WITHDRAWAL SYMPTOM Plan: CONTINUE DETOX,DISCHARGE IN AM
[2017-05-03] MEDS: chlordiazePOXIDE HCL 10 MG CAPSULE PO SCH ×2 (17:23→22:18)
[2017-05-03] MEDS: AMMONIUM LACTATE 12% LOTION 225 GM BOTTLE TP SCH (17:24)
[2017-05-03] MEDS: ATORVASTATIN CA 20 MG TABLET (FP) PO SCH (22:18)
[2017-05-03] MEDS: THIAMINE HCL 100 MG TABLET (FP) PO SCH (22:18)
[2017-05-03] MEDS: IBUPROFEN 400 MG TABLET (FP) PO PRN (22:20)
[2017-05-03] MEDS: CLOTRIMAZOLE 1% VAGINAL CREAM WITH APPLICATOR 45 GM TUBE VG SCH (23:12)
[2017-05-04] MEDS: chlordiazePOXIDE HCL 10 MG CAPSULE PO SCH ×2 (05:42→13:11)
[2017-05-04] MEDS: FERROUS SO4 325 MG TABLET (FP) PO SCH (07:28)
[2017-05-04] MEDS: PRENATAL VITAMINS W/ FOLIC ACID TABLET (FP) PO SCH (10:21)
[2017-05-04] MEDS: ESCITALOPRAM OXALATE 10 MG TABLET (FP) PO SCH (10:21)
[2017-05-04] MEDS: GABAPENTIN 400 MG CAPSULE (FP) PO SCH (10:21)
[2017-05-04] MEDS: LOSARTAN POTASSIUM 50 MG TABLET (FP) PO SCH (10:21)
[2017-05-04] MEDS: PATIENT'S OWN MEDICATION (NON-FORMULARY) (Omeprazole [Omeprazole] 40 MG) PO SCH (10:21)
[2017-05-04] MEDS: NICOTINE 21 MG/24 HOURS TOPICAL PATCH TD SCH (10:22)
[2017-05-04] MEDS: FLUTICASONE PROP 0.05% 16 GM NASAL SPRAY NS SCH ×2 (10:22→23:02)
[2017-05-04] MEDS: ABACAVIR/DOLUTEGRAVIR/LAMIVUDI (TRIUMEQ) TABLET -NF PO SCH (10:22)
[2017-05-04] MEDS: HYDROCORTISONE 1% TOPICAL CREAM 30 GM TUBE TP SCH ×2 (10:22→22:20)
--- NOTE | 2017-05-04 12:35 | DS ---
[facility] Detox Discharge Summary Admission Date: 04/30/17 Discharge Date: 05/04/17 - History Present History: Alcohol Dependence - Physical Exam Results Vital Signs: Vital Signs Temperature 97.9 F 05/04/17 10:00 Pulse Rate 81 05/04/17 10:00 Respiratory Rate 18 05/04/17 10:00 Blood Pressure 136/87 05/04/17 10:00 O2 Sat by Pulse Oximetry (%) Pertinent Admission Physical Exam Findings: withdrawal sx Vital Signs Temperature 97.9 F 05/04/17 10:00 Pulse Rate 81 05/04/17 10:00 Respiratory Rate 18 05/04/17 10:00 Blood Pressure 136/87 05/04/17 10:00 O2 Sat by Pulse Oximetry (%) Laboratory Last Values WBC 5.9 K/mm3 (4.0-10.0) D 05/01/17 07:00 RBC 3.35 M/mm3 (3.60-5.2) L 05/01/17 07:00 Hgb 10.5 GM/dL (10.7-15.3) L 05/01/17 07:00 Hct 32.1 % (32.4-45.2) L 05/01/17 07:00 MCV 96.0 fl (80-96) 05/01/17 07:00 MCH 31.4 pg (25.7-33.7) 05/01/17 07:00 MCHC 32.7 g/dl (32.0-36.0) 05/01/17 07:00 RDW 13.9 % (11.6-15.6) 05/01/17 07:00 Plt Count 343 K/MM3 (134-434) 05/01/17 07:00 MPV 8.4 fl (7.5-11.1) 05/01/17 07:00 Sodium 136 mmol/L (136-145) 05/01/17 07:00 Potassium 4.1 mmol/L (3.5-5.1) 05/01/17 07:00 Chloride 104 mmol/L (98-107) 05/01/17 07:00 Carbon Dioxide 25 mmol/L (21-32) 05/01/17 07:00 Anion Gap 7 (8-16) L 05/01/17 07:00 BUN 15 mg/dL (7-18) D 05/01/17 07:00 Creatinine 0.9 mg/dL (0.55-1.02) 05/01/17 07:00 Creat Clearance w eGFR > 60 (>60) 05/01/17 07:00 POC Glucometer 169 UNITS (80-120) 05/03/17 16:39 Random Glucose 213 mg/dL (74-106) H D 05/01/17 07:00 Calcium 8.7 mg/dL (8.5-10.1) 05/01/17 07:00 Total Bilirubin 0.4 mg/dL (0.2-1.0) D 05/01/17 07:00 AST 11 U/L (15-37) L D 05/01/17 07:00 ALT 18 U/L (12-78) 05/01/17 07:00 Alkaline Phosphatase 129 U/L (45-117) H 05/01/17 07:00 Total Protein 6.9 g/dl (6.4-8.2) 05/01/17 07:00 Albumin 3.0 g/dl (3.4-5.0) L 05/01/17 07:00 Urine Color Ltyellow 05/01/17 12:55 Urine Appearance Slcloudy 05/01/17 12:55 Urine pH 5.0 (5.0-8.0) 05/01/17 12:55 Ur Specific [place] 1.009 (1.001-1.035) 05/01/17 12:55 Urine Protein Negative (NEGATIVE) 05/01/17 12:55 Urine Glucose (UA) Negative (NEGATIVE) 05/01/17 12:55 Urine Ketones Negative (NEGATIVE) 05/01/17 12:55 Urine Blood Negative (NEGATIVE) 05/01/17 12:55 Urine Nitrite Negative (NEGATIVE) 05/01/17 12:55 Urine Bilirubin Negative (NEGATIVE) 05/01/17 12:55 Urine Urobilinogen Negative mg/dL (0.2-1.0) 05/01/17 12:55 Ur Leukocyte Esterase 2+ (NEGATIVE) H 04/30/17 16:40 Urine WBC (Auto) 11 /hpf (3-5) 04/30/17 16:40 Urine RBC (Auto) 2 /hpf (0-3) 04/30/17 16:40 Urine Bacteria Rare /hpf (NONE SEEN) 04/30/17 16:40 RPR Titer Nonreactive (NONREACTIVE) 05/01/17 07:00 lab noted - Treatment Hospital Course: Detox Protocol Followed, Detoxed Safely, Responded well, Discharged Condition Good, Rehab Referral Accepted - Medication Discharge Medications: Ambulatory Orders Abacavir/Dolutegravir/Lamivudi [Triumeq Tablet] 1 each PO DAILY 04/11/17 Omeprazole 40 mg PO DAILY 04/11/17 Fluticasone Prop 0.05% Nasal [Flonase -] 1 spray NS BID #1 spray 04/15/17 Gabapentin 800 mg PO DAILY #30 tablet 04/15/17 Hydrocortisone 1% Cream [Hytone 1% Cream -] 1 applic TP BID #1 tube 04/15/17 Losartan Potassium [Cozaar -] 50 mg PO DAILY #30 tablet 04/15/17 Albuterol Sulfate Inhaler - [Ventolin Hfa Inhaler -] 2 inh PO Q4H PRN 04/30/17 Ammonium Lactate Lotion [Lac-Hydrin 12% Lotion -] 1 applic TP ASDIR 04/30/17 Atorvastatin Calcium 20 mg PO HS 04/30/17 Docusate Sodium [Colace -] 200 mg PO DAILY 04/30/17 Ferrous Sulfate [Iron] 325 mg PO DAILY 04/30/17 Ibuprofen [Motrin -] 400 mg PO TID 04/30/17 Metformin Xr [Glucophage Xr -] 750 mg PO DAILY 04/30/17 Escitalopram Oxalate [Lexapro -] 10 mg PO DAILY #30 tablet 05/01/17 - Diagnosis (1) Alcohol dependence with uncomplicated withdrawal Current Visit: Yes Status: Acute (2) HIV (human immunodeficiency virus infection) Current Visit: Yes Status: Chronic (3) DM2 (diabetes mellitus, type 2) Current Visit: Yes Status: Chronic Qualifiers: Diabetes mellitus complication status: without complication Diabetes mellitus terminal press operator insulin use: without terminal press operator use Qualified Code(s): E11.9 - Type 2 diabetes mellitus without complications (4) Essential (primary) hypertension Current Visit: Yes Status: Chronic (5) Asthma Current Visit: Yes Status: Chronic Qualifiers: Asthma severity: moderate Asthma complication type: uncomplicated (6) Nicotine dependence Current Visit: Yes Status: Acute Qualifiers: Nicotine product type: cigarettes Substance use status: in withdrawal Qualified Code(s): F17.213 - Nicotine dependence, cigarettes, with withdrawal - AMA Did Patient Leave Against Medical Advice: No
--- NOTE | 2017-05-04 14:30 | PN ---
[facility] Progress Note Note: 61 years old underweight female with long history of alcohol addiction, co- occurrent morbidities as hiv hypertension asthma and diabetes as well as depression, discuss aftercare implication with the counselor, for the safety of the patient and efficacy of alcohol detox, patient will be discharged 05/05/16
[2017-05-04] MEDS: AMMONIUM LACTATE 12% LOTION 225 GM BOTTLE TP SCH (17:16)
[2017-05-04] MEDS: ATORVASTATIN CA 20 MG TABLET (FP) PO SCH (22:18)
[2017-05-04] MEDS: THIAMINE HCL 100 MG TABLET (FP) PO SCH (22:18)
[2017-05-04] MEDS: IBUPROFEN 400 MG TABLET (FP) PO PRN (22:19)
[2017-05-04] MEDS: CLOTRIMAZOLE 1% VAGINAL CREAM WITH APPLICATOR 45 GM TUBE VG SCH (23:02)
[2017-05-05] MEDS: IBUPROFEN 400 MG TABLET (FP) PO PRN (05:45)
[2017-05-05] MEDS: FERROUS SO4 325 MG TABLET (FP) PO SCH (08:32)
--- NOTE | 2017-05-05 09:14 | DS ---
[facility] Detox Discharge Summary Admission Date: 04/30/17 Discharge Date: 05/05/17 - History Present History: Alcohol Dependence, Cocaine Dependence - Physical Exam Results Vital Signs: Vital Signs Temperature 96.9 F L 05/05/17 06:10 Pulse Rate 77 05/05/17 06:10 Respiratory Rate 18 05/05/17 06:10 Blood Pressure 143/78 05/05/17 06:10 O2 Sat by Pulse Oximetry (%) - Treatment Hospital Course: Detox Protocol Followed, Detoxed Safely, Responded well, Discharged Condition Good, Rehab Referral Accepted - Medication Discharge Medications: Ambulatory Orders Abacavir/Dolutegravir/Lamivudi [Triumeq Tablet] 1 each PO DAILY 04/11/17 Omeprazole 40 mg PO DAILY 04/11/17 Fluticasone Prop 0.05% Nasal [Flonase -] 1 spray NS BID #1 spray 04/15/17 Hydrocortisone 1% Cream [Hytone 1% Cream -] 1 applic TP BID #1 tube 04/15/17 Ammonium Lactate Lotion [Lac-Hydrin 12% Lotion -] 1 applic TP ASDIR 04/30/17 Docusate Sodium [Colace -] 200 mg PO DAILY 04/30/17 Ferrous Sulfate [Iron] 325 mg PO DAILY 04/30/17 Ibuprofen [Motrin -] 400 mg PO TID 04/30/17 Escitalopram Oxalate [Lexapro -] 10 mg PO DAILY #30 tablet 05/01/17 Albuterol Sulfate Inhaler - [Ventolin Hfa Inhaler -] 2 inh PO Q4H PRN 30 Days # 1 inhaler 05/04/17 Atorvastatin Calcium 20 mg PO HS 14 Days #14 tablet 05/04/17 Gabapentin 800 mg PO DAILY #30 tablet 05/04/17 Losartan Potassium [Cozaar -] 50 mg PO DAILY #30 tablet 05/04/17 Metformin Xr [Glucophage Xr -] 750 mg PO DAILY 14 Days #14 tab.sr.24h 05/04/17 - Diagnosis (1) Drug-induced mood disorder Current Visit: Yes Status: Chronic (2) DM2 (diabetes mellitus, type 2) Current Visit: Yes Status: Chronic Qualifiers: Diabetes mellitus complication status: without complication Diabetes mellitus intermediate frame tender insulin use: without jail use Qualified Code(s): E11.9 - Type 2 diabetes mellitus without complications (3) Depression Current Visit: No Status: Acute (4) Essential (primary) hypertension Current Visit: Yes Status: Chronic (5) History of carpal tunnel surgery Current Visit: No Status: Acute (6) History of carpal tunnel surgery of right wrist Current Visit: No Status: Acute (7) History of neck surgery Current Visit: No Status: Acute (8) Insomnia Current Visit: No Status: Acute (9) Neuropathy Current Visit: No Status: Acute (10) Weight loss Current Visit: No Status: Acute (11) Alcohol dependence with uncomplicated withdrawal Current Visit: Yes Status: Acute (12) Asthma Current Visit: Yes Status: Chronic Qualifiers: Asthma severity: moderate Asthma complication type: uncomplicated (13) Cocaine dependence Current Visit: No Status: Chronic Qualifiers: Substance use status: uncomplicated Qualified Code(s): F14.20 - Cocaine dependence, uncomplicated (14) HIV (human immunodeficiency virus infection) Current Visit: Yes Status: Chronic (15) MDD (major depressive disorder) Current Visit: No Status: Chronic (16) Nicotine dependence Current Visit: Yes Status: Acute Qualifiers: Nicotine product type: cigarettes Substance use status: in withdrawal Qualified Code(s): F17.213 - Nicotine dependence, cigarettes, with withdrawal (17) History of cervical cancer Current Visit: No Status: Chronic - AMA Did Patient Leave Against Medical Advice: No
[2017-05-05] MEDS: PRENATAL VITAMINS W/ FOLIC ACID TABLET (FP) PO SCH (10:55)
[2017-05-05] MEDS: ESCITALOPRAM OXALATE 10 MG TABLET (FP) PO SCH (10:55)
[2017-05-05] MEDS: LOSARTAN POTASSIUM 50 MG TABLET (FP) PO SCH (10:55)
[2017-05-05] MEDS: GABAPENTIN 400 MG CAPSULE (FP) PO SCH (10:55)
[2017-05-05] MEDS: PATIENT'S OWN MEDICATION (NON-FORMULARY) (Omeprazole [Omeprazole] 40 MG) PO SCH (10:56)
[2017-05-05] MEDS: FLUTICASONE PROP 0.05% 16 GM NASAL SPRAY NS SCH (10:56)
[2017-05-05] MEDS: HYDROCORTISONE 1% TOPICAL CREAM 30 GM TUBE TP SCH (10:56)
[2017-05-05] MEDS: ABACAVIR/DOLUTEGRAVIR/LAMIVUDI (TRIUMEQ) TABLET -NF PO SCH (10:56)
[2017-05-05] MEDS: NICOTINE 21 MG/24 HOURS TOPICAL PATCH TD SCH (10:57)
[2017-05-05] MEDS: guaiFENesin/D-METHORPHAN HB 10 ML UNIT-DOSE CUPS PO PRN (10:57)
[2017-05-05 11:00] VITALS: BP 135/80; PULSE 88; TEMP 98.6
== END 2017-05-05 01:50 | disposition other institution (70) | DRG 774 ==
LOC: YASAS 14:21 → Y6N 16:23
PROVIDERS: ADMIT Internal Medicine; ATTEND Internal Medicine
PROC: HZ2ZZZZ Detoxification Services for Substance Abuse Treatment (ICD-10-PCS; principal; 2017-04-30)
DX: F10.230 Alcohol dependence with withdrawal, uncomplicated (principal); F14.20 Cocaine dependence, uncomplicated; F17.210 Nicotine dependence, cigarettes, uncomplicated; F33.9 Major depressive disorder, recurrent, unspecified; F32.9 Major depressive disorder, single episode, unspecified; F19.24 Other psychoactive substance dependence with psychoactive substance-induced mood disorder; G62.9 Polyneuropathy, unspecified; G47.00 Insomnia, unspecified; E11.9 Type 2 diabetes mellitus without complications; Z79.84 Long term (current) use of oral hypoglycemic drugs; Z85.41 Personal history of malignant neoplasm of cervix uteri
CPT/HCPCS: 36415; 80053; 81003; 81015; 82962; 85027; 86593; 93005; 93010

== ENCOUNTER 2017-05-05 14:18 | Inpatient (IN) | payer OTHER ==
--- NOTE | 2017-05-05 15:07 | HP ---
[facility] Rehab Assess/Revision - Admission History Admitted to Rehab from: [facility] [place] Date of Admission to Rehab: 05/05/17 - Findings Detox History & Physical reviewed: Yes Concur with findings: Yes Comments/Additional Findings: for rehab as [facility] Inpatient Rehab Admission - Initial Determination Are CD services needed?: Yes Free of communicable disease: Yes Not in need of hospitalization: Yes - Rehab Admission Criteria Previous failed treatment: Yes Poor recovery environment: Yes Patient is meeting Inpatient Rehab admission criteria:: Yes
[2017-05-05] MEDS ORDERED: LOPERAMIDE HCL 2 MG CAPSULE PO PRN (15:09)
[2017-05-05] MEDS ORDERED: MAGNESIUM CITRATE 300 ML BOTTLE PO PRN (15:09)
[2017-05-05] MEDS ORDERED: MAGNESIUM HYDROX 2400MG/30ML ORAL SUSPENSION 30 ML CUP PO PRN (15:09)
[2017-05-05] MEDS ORDERED: MENTHOL/PHENOL 1 EACH UD MM PRN (15:09)
[2017-05-05] MEDS ORDERED: P-EPHED 60MG/TRIPROLIDI 2.5MG TABLET PO PRN (15:09)
[2017-05-05] MEDS ORDERED: hydrOXYzine PAMOATE 50 MG CAPSULE (FP) PO PRN (15:09)
[2017-05-05] MEDS ORDERED: IBUPROFEN 400 MG TABLET (FP) PO PRN (15:09)
[2017-05-05] MEDS ORDERED: ALBUTEROL SO4 18 GM HFA INHALER IH PRN (15:12)
[2017-05-05] MEDS: NICOTINE 21 MG/24 HOURS TOPICAL PATCH TD SCH (16:00)
[2017-05-05] MEDS ORDERED: PT OWN MED DRAWER 7, Y5N ONE ×2 (16:05→18:14)
[2017-05-05] MEDS: FLUTICASONE PROP 0.05% 16 GM NASAL SPRAY NS SCH (21:30)
[2017-05-05] MEDS: HYDROCORTISONE 1% TOPICAL CREAM 30 GM TUBE TP SCH (21:31)
[2017-05-05] MEDS: CLOTRIMAZOLE 1% VAGINAL CREAM WITH APPLICATOR 45 GM TUBE VG SCH (21:31)
[2017-05-05] MEDS: THIAMINE HCL 100 MG TABLET (FP) PO SCH (21:34)
[2017-05-05] MEDS: ATORVASTATIN CA 20 MG TABLET (FP) PO SCH (21:34)
[2017-05-05] MEDS: guaiFENesin/D-METHORPHAN HB 10 ML UNIT-DOSE CUPS PO PRN (21:58)
[2017-05-06] MEDS ORDERED: PT OWN MED DRAWER 7, Y5N ONE ×3 (06:32→19:32)
[2017-05-06] MEDS: FERROUS SO4 325 MG TABLET (FP) PO SCH (07:31)
[2017-05-06] MEDS: HYDROCORTISONE 1% TOPICAL CREAM 30 GM TUBE TP SCH ×2 (09:47→21:29)
[2017-05-06] MEDS: LOSARTAN POTASSIUM 50 MG TABLET (FP) PO SCH (09:47)
[2017-05-06] MEDS: NICOTINE 21 MG/24 HOURS TOPICAL PATCH TD SCH (09:47)
[2017-05-06] MEDS: FLUTICASONE PROP 0.05% 16 GM NASAL SPRAY NS SCH ×2 (09:47→21:29)
[2017-05-06] MEDS: PRENATAL VITAMINS W/ FOLIC ACID TABLET (FP) PO SCH (09:48)
[2017-05-06] MEDS: PATIENT'S OWN MEDICATION (NON-FORMULARY) (Omeprazole [Omeprazole] 40 MG) PO SCH (09:48)
[2017-05-06] MEDS: ABACAVIR/DOLUTEGRAVIR/LAMIVUDI (TRIUMEQ) TABLET -NF PO SCH (09:48)
[2017-05-06] MEDS ORDERED: FLU VACCINE QUAD 60 MCG/0.5 ML (MDV 17-18) IM ONE (12:00)
[2017-05-06] MEDS ORDERED: PNEUMOC 13-VAL CONJ-DIP CRM/PF 0.5 ML DISP.SYRIN IM ONE (12:00)
[2017-05-06] MEDS: guaiFENesin/D-METHORPHAN HB 10 ML UNIT-DOSE CUPS PO PRN (15:48)
[2017-05-06] MEDS: ESCITALOPRAM OXALATE 10 MG TABLET (FP) PO SCH (17:05)
[2017-05-06] MEDS: AMMONIUM LACTATE 12% LOTION 225 GM BOTTLE TP PRN (17:56)
[2017-05-06] MEDS: THIAMINE HCL 100 MG TABLET (FP) PO SCH (21:27)
[2017-05-06] MEDS: ATORVASTATIN CA 20 MG TABLET (FP) PO SCH (21:27)
[2017-05-06] MEDS: CLOTRIMAZOLE 1% VAGINAL CREAM WITH APPLICATOR 45 GM TUBE VG SCH (21:27)
[2017-05-06] MEDS: GABAPENTIN 400 MG CAPSULE (FP) PO SCH (21:28)
[2017-05-06] MEDS: DOCUSATE SODIUM 100 MG CAPSULE (FP) PO SCH (21:29)
[2017-05-07] MEDS: FERROUS SO4 325 MG TABLET (FP) PO SCH (07:05)
[2017-05-07] MEDS: FLUTICASONE PROP 0.05% 16 GM NASAL SPRAY NS SCH ×2 (10:17→21:30)
[2017-05-07] MEDS: NICOTINE 21 MG/24 HOURS TOPICAL PATCH TD SCH (10:18)
[2017-05-07] MEDS: ESCITALOPRAM OXALATE 10 MG TABLET (FP) PO SCH (10:19)
[2017-05-07] MEDS: ABACAVIR/DOLUTEGRAVIR/LAMIVUDI (TRIUMEQ) TABLET -NF PO SCH (10:19)
[2017-05-07] MEDS: PRENATAL VITAMINS W/ FOLIC ACID TABLET (FP) PO SCH (10:19)
[2017-05-07] MEDS: LOSARTAN POTASSIUM 50 MG TABLET (FP) PO SCH (10:19)
[2017-05-07] MEDS: PATIENT'S OWN MEDICATION (NON-FORMULARY) (Omeprazole [Omeprazole] 40 MG) PO SCH (10:19)
[2017-05-07] MEDS: HYDROCORTISONE 1% TOPICAL CREAM 30 GM TUBE TP SCH ×2 (10:20→21:31)
[2017-05-07] MEDS ORDERED: PANTOPRAZOLE 40 MG TABLET (FP) PO SCH (14:15)
[2017-05-07] MEDS: ACETAMINOPHEN 325 MG TABLET (FP) PO PRN (14:29)
--- NOTE | 2017-05-07 15:01 | HP ---
Psychiatrist Admission - Data Date of interview: 05/07/17 Admission source: [address] [place] [address] detox Identifying data: This is the first admission for this 61 years old single AA female mother of 2 grown children,resides in [facility],supported by [facility]. Medical History: Significant for HIV+,DM,Neuropathy. Psychiatric History: Patient reports being depressed,having mood swings, anxiety for a while.She denies previous psychiatric hospitalizations,no suicidality reported.Patient has no psychiatric caRE.SHE WAS PLACED ON lEXAPRO 10 MG PO DAILY,OBTAINING lEXAPRO PRESCRIPTIONS FROM HER PCP. Patient was continued Lexapro 10 mg po daily while in detox unit on ,ordered by . Physical/Sexual Abuse/Trauma History: denies Vital Signs: Vital Signs - 24 hr 05/07/17 05/07/17 05/07/17 00:30 07:37 09:31 Temperature 98.3 F Pulse Rate 84 101 H Respiratory 16 18 Rate Blood Pressure 128/83 132/77 Allergies/Adverse Reactions: Allergies Allergy/AdvReac Type Severity Reaction Status Date / Time No Known Drug Allergies Allergy Verified 04/30/17 15:27 erythromycin base AdvReac Severe Nausea Verified 05/05/17 14:45 Date of last physical exam: 05/06/17 Concur with the findings of this exam: Yes - Substance Abuse/Tx History Hx Alcohol Use: Yes (reports drinking since 19 yo,40 oz daily of beer) Hx Substance Use: Yes (cocaine /crack since 19 yo,$500 daily) Substance Use Type: Alcohol, Cocaine Hx Substance Use Treatment: Yes (completed inpatient rehab 2-3 yo,long abstinence 10 years) Mental Status Exam - Mental Status Exam Alert and Oriented to: Time, Place, Person Cognitive Function: Grossly Intact Patient Appearance: Unkempt Mood: Sad Affect: Labile Patient Behavior: Cooperative Speech Pattern: Clear Voice Loudness: Normal Thought Process: Goal Oriented Thought Disorder: Not Present Hallucinations: Denies Suicidal Ideation: Denies Homicidal Ideation: Denies Insight/Judgement: Fair Sleep: Fair Appetite: Fair, Weight loss Muscle strength/Tone: Normal Gait/Station: Normal Psychiatric Findings - Problem List ([place] 1, 2,3) (1) History of carpal tunnel surgery of right wrist Current Visit: Yes Status: Resolved (2) History of neck surgery Current Visit: Yes Status: Resolved (3) Neuropathy Current Visit: Yes Status: Chronic (4) Nicotine dependence Current Visit: Yes Status: Chronic Qualifiers: Nicotine product type: cigarettes Substance use status: in withdrawal Qualified Code(s): F17.213 - Nicotine dependence, cigarettes, with withdrawal (5) HIV (human immunodeficiency virus infection) Current Visit: Yes Status: Chronic (6) Cocaine dependence Current Visit: Yes Status: Chronic Qualifiers: Substance use status: uncomplicated Qualified Code(s): F14.20 - Cocaine dependence, uncomplicated (7) DM2 (diabetes mellitus, type 2) Current Visit: Yes Status: Chronic Qualifiers: Diabetes mellitus complication status: without complication Diabetes mellitus detention insulin use: without detention use Qualified Code(s): E11.9 - Type 2 diabetes mellitus without complications (8) Drug-induced mood disorder Current Visit: Yes Status: Chronic (9) Essential (primary) hypertension Current Visit: Yes Status: Chronic (10) HIV (human immunodeficiency virus infection) Current Visit: Yes Status: Chronic (11) History of cervical cancer Current Visit: Yes Status: Chronic - Initial Treatment Plan Initial Treatment Plan: Continue Lexapro 10 mg po daily.Will monitor progress.
[2017-05-07] MEDS: DOCUSATE SODIUM 100 MG CAPSULE (FP) PO SCH (21:29)
[2017-05-07] MEDS: ATORVASTATIN CA 20 MG TABLET (FP) PO SCH (21:29)
[2017-05-07] MEDS: GABAPENTIN 400 MG CAPSULE (FP) PO SCH (21:29)
[2017-05-07] MEDS: THIAMINE HCL 100 MG TABLET (FP) PO SCH (21:29)
[2017-05-07] MEDS: CLOTRIMAZOLE 1% VAGINAL CREAM WITH APPLICATOR 45 GM TUBE VG SCH (21:31)
[2017-05-07] MEDS: NAPROXEN 500 MG TABLET (FP) PO SCH (21:32)
[2017-05-08] MEDS: ESCITALOPRAM OXALATE 10 MG TABLET (FP) PO SCH (06:32)
[2017-05-08] MEDS: FERROUS SO4 325 MG TABLET (FP) PO SCH (07:01)
[2017-05-08] MEDS ORDERED: PT OWN MED DRAWER 7, Y5N ONE (08:47)
[2017-05-08] MEDS: FLUTICASONE PROP 0.05% 16 GM NASAL SPRAY NS SCH ×2 (10:23→21:23)
[2017-05-08] MEDS: LOSARTAN POTASSIUM 50 MG TABLET (FP) PO SCH (10:24)
[2017-05-08] MEDS: PRENATAL VITAMINS W/ FOLIC ACID TABLET (FP) PO SCH (10:24)
[2017-05-08] MEDS: PATIENT'S OWN MEDICATION (NON-FORMULARY) (Omeprazole [Omeprazole] 40 MG) PO SCH (10:24)
[2017-05-08] MEDS: NICOTINE 21 MG/24 HOURS TOPICAL PATCH TD SCH (10:24)
[2017-05-08] MEDS: NAPROXEN 500 MG TABLET (FP) PO SCH ×2 (10:24→21:22)
[2017-05-08] MEDS: ABACAVIR/DOLUTEGRAVIR/LAMIVUDI (TRIUMEQ) TABLET -NF PO SCH (10:25)
[2017-05-08] MEDS: HYDROCORTISONE 1% TOPICAL CREAM 30 GM TUBE TP SCH ×2 (10:25→21:23)
[2017-05-08] MEDS: COLLOIDAL OATMEAL 1 BAR EACH TP PRN (15:52)
[2017-05-08] MEDS: GABAPENTIN 400 MG CAPSULE (FP) PO SCH (21:22)
[2017-05-08] MEDS: ATORVASTATIN CA 20 MG TABLET (FP) PO SCH (21:22)
[2017-05-08] MEDS: THIAMINE HCL 100 MG TABLET (FP) PO SCH (21:22)
[2017-05-08] MEDS: DOCUSATE SODIUM 100 MG CAPSULE (FP) PO SCH (21:24)
[2017-05-08] MEDS: AMMONIUM LACTATE 12% LOTION 225 GM BOTTLE TP PRN (21:25)
[2017-05-09] MEDS: ESCITALOPRAM OXALATE 10 MG TABLET (FP) PO SCH (06:36)
[2017-05-09] MEDS: FERROUS SO4 325 MG TABLET (FP) PO SCH (07:08)
[2017-05-09] MEDS ORDERED: PT OWN MED DRAWER 7, Y5N ONE (08:18)
[2017-05-09] MEDS: FLUTICASONE PROP 0.05% 16 GM NASAL SPRAY NS SCH ×2 (09:48→21:24)
[2017-05-09] MEDS: NICOTINE 21 MG/24 HOURS TOPICAL PATCH TD SCH (09:48)
[2017-05-09] MEDS: ABACAVIR/DOLUTEGRAVIR/LAMIVUDI (TRIUMEQ) TABLET -NF PO SCH (09:48)
[2017-05-09] MEDS: PATIENT'S OWN MEDICATION (NON-FORMULARY) (Omeprazole [Omeprazole] 40 MG) PO SCH (09:48)
[2017-05-09] MEDS: PRENATAL VITAMINS W/ FOLIC ACID TABLET (FP) PO SCH (09:49)
[2017-05-09] MEDS: NAPROXEN 500 MG TABLET (FP) PO SCH ×2 (09:49→21:21)
[2017-05-09] MEDS: LOSARTAN POTASSIUM 50 MG TABLET (FP) PO SCH (09:49)
[2017-05-09] MEDS: HYDROCORTISONE 1% TOPICAL CREAM 30 GM TUBE TP SCH ×2 (09:51→21:22)
[2017-05-09] MEDS: VITAMINS A AND D TOPICAL OINTMENT 60 GM TUBE TP SCH (18:30)
[2017-05-09] MEDS: THIAMINE HCL 100 MG TABLET (FP) PO SCH (21:20)
[2017-05-09] MEDS: GABAPENTIN 400 MG CAPSULE (FP) PO SCH (21:21)
[2017-05-09] MEDS: DOCUSATE SODIUM 100 MG CAPSULE (FP) PO SCH (21:21)
[2017-05-09] MEDS: ATORVASTATIN CA 20 MG TABLET (FP) PO SCH (21:21)
[2017-05-09] MEDS: guaiFENesin/D-METHORPHAN HB 10 ML UNIT-DOSE CUPS PO PRN (21:23)
[2017-05-10] MEDS: VITAMINS A AND D TOPICAL OINTMENT 60 GM TUBE TP SCH ×4 (00:43→17:07)
[2017-05-10] MEDS ORDERED: PT OWN MED DRAWER 7, Y5N ONE ×2 (03:20→16:43)
[2017-05-10] MEDS: ESCITALOPRAM OXALATE 10 MG TABLET (FP) PO SCH (06:57)
[2017-05-10] MEDS: FERROUS SO4 325 MG TABLET (FP) PO SCH (07:11)
[2017-05-10] MEDS: ABACAVIR/DOLUTEGRAVIR/LAMIVUDI (TRIUMEQ) TABLET -NF PO SCH (10:17)
[2017-05-10] MEDS: PATIENT'S OWN MEDICATION (NON-FORMULARY) (Omeprazole [Omeprazole] 40 MG) PO SCH (10:17)
[2017-05-10] MEDS: NAPROXEN 500 MG TABLET (FP) PO SCH ×2 (10:17→21:22)
[2017-05-10] MEDS: PRENATAL VITAMINS W/ FOLIC ACID TABLET (FP) PO SCH (10:17)
[2017-05-10] MEDS: NICOTINE 21 MG/24 HOURS TOPICAL PATCH TD SCH (10:18)
[2017-05-10] MEDS: FLUTICASONE PROP 0.05% 16 GM NASAL SPRAY NS SCH ×2 (10:19→21:27)
[2017-05-10] MEDS: HYDROCORTISONE 1% TOPICAL CREAM 30 GM TUBE TP SCH ×2 (10:19→21:22)
[2017-05-10] MEDS: LOSARTAN POTASSIUM 50 MG TABLET (FP) PO SCH (10:22)
[2017-05-10] MEDS: AMMONIUM LACTATE 12% LOTION 225 GM BOTTLE TP PRN (16:45)
[2017-05-10] MEDS: GABAPENTIN 400 MG CAPSULE (FP) PO SCH (21:21)
[2017-05-10] MEDS: THIAMINE HCL 100 MG TABLET (FP) PO SCH (21:21)
[2017-05-10] MEDS: DOCUSATE SODIUM 100 MG CAPSULE (FP) PO SCH (21:22)
[2017-05-10] MEDS: ATORVASTATIN CA 20 MG TABLET (FP) PO SCH (21:22)
[2017-05-11] MEDS: VITAMINS A AND D TOPICAL OINTMENT 60 GM TUBE TP SCH ×5 (00:10→23:35)
[2017-05-11] MEDS: ESCITALOPRAM OXALATE 10 MG TABLET (FP) PO SCH (06:39)
[2017-05-11] MEDS: FERROUS SO4 325 MG TABLET (FP) PO SCH (07:02)
[2017-05-11] MEDS: FLUTICASONE PROP 0.05% 16 GM NASAL SPRAY NS SCH ×2 (09:51→21:28)
[2017-05-11] MEDS: AMMONIUM LACTATE 12% LOTION 225 GM BOTTLE TP PRN (09:52)
[2017-05-11] MEDS: LOSARTAN POTASSIUM 50 MG TABLET (FP) PO SCH (09:52)
[2017-05-11] MEDS: HYDROCORTISONE 1% TOPICAL CREAM 30 GM TUBE TP SCH ×2 (09:52→21:28)
[2017-05-11] MEDS: NAPROXEN 500 MG TABLET (FP) PO SCH ×2 (09:53→21:28)
[2017-05-11] MEDS: PATIENT'S OWN MEDICATION (NON-FORMULARY) (Omeprazole [Omeprazole] 40 MG) PO SCH (09:53)
[2017-05-11] MEDS: PRENATAL VITAMINS W/ FOLIC ACID TABLET (FP) PO SCH (09:53)
[2017-05-11] MEDS: NICOTINE 21 MG/24 HOURS TOPICAL PATCH TD SCH (09:53)
[2017-05-11] MEDS: ABACAVIR/DOLUTEGRAVIR/LAMIVUDI (TRIUMEQ) TABLET -NF PO SCH (09:54)
[2017-05-11] MEDS: ACETAMINOPHEN 325 MG TABLET (FP) PO PRN ×2 (12:23→21:31)
[2017-05-11] MEDS: ATORVASTATIN CA 20 MG TABLET (FP) PO SCH (21:28)
[2017-05-11] MEDS: THIAMINE HCL 100 MG TABLET (FP) PO SCH (21:28)
[2017-05-11] MEDS: GABAPENTIN 400 MG CAPSULE (FP) PO SCH (21:28)
[2017-05-11] MEDS: DOCUSATE SODIUM 100 MG CAPSULE (FP) PO SCH (21:28)
[2017-05-11] MEDS: guaiFENesin/D-METHORPHAN HB 10 ML UNIT-DOSE CUPS PO PRN (21:30)
--- NOTE | 2017-05-11 22:38 | PN ---
[facility] Progress Note Note: C/O ON GOING VAGINAL ODUR WITH [facility]. STATES COMPLETED VAGINAL CREAM TXMENT 2 DAYS AGO FLAGYL 500MG PO BID X 7DAYS URINE FOR GC/CHLAMYDIA
[2017-05-11] MEDS: metroNIDAZOLE 250 MG TABLET PO SCH (22:51)
[2017-05-12] MEDS: ESCITALOPRAM OXALATE 10 MG TABLET (FP) PO SCH (06:23)
[2017-05-12] MEDS: VITAMINS A AND D TOPICAL OINTMENT 60 GM TUBE TP SCH ×3 (06:23→18:47)
[2017-05-12] MEDS: FERROUS SO4 325 MG TABLET (FP) PO SCH (07:11)
[2017-05-12] MEDS: MAG HYDROX/AL HYDROX/SIMETH 30 ML UNIT-DOSE CUP PO PRN (08:39)
[2017-05-12] MEDS: LOSARTAN POTASSIUM 50 MG TABLET (FP) PO SCH (09:44)
[2017-05-12] MEDS: metroNIDAZOLE 250 MG TABLET PO SCH ×2 (09:44→21:29)
[2017-05-12] MEDS: NAPROXEN 500 MG TABLET (FP) PO SCH ×2 (09:44→21:29)
[2017-05-12] MEDS: FLUTICASONE PROP 0.05% 16 GM NASAL SPRAY NS SCH ×2 (09:44→21:31)
[2017-05-12] MEDS: HYDROCORTISONE 1% TOPICAL CREAM 30 GM TUBE TP SCH ×2 (09:44→21:31)
[2017-05-12] MEDS: ABACAVIR/DOLUTEGRAVIR/LAMIVUDI (TRIUMEQ) TABLET -NF PO SCH (09:45)
[2017-05-12] MEDS: PATIENT'S OWN MEDICATION (NON-FORMULARY) (Omeprazole [Omeprazole] 40 MG) PO SCH (09:45)
[2017-05-12] MEDS: NICOTINE 21 MG/24 HOURS TOPICAL PATCH TD SCH (09:45)
[2017-05-12] MEDS: PRENATAL VITAMINS W/ FOLIC ACID TABLET (FP) PO SCH (09:45)
[2017-05-12] MEDS: THIAMINE HCL 100 MG TABLET (FP) PO SCH (21:28)
[2017-05-12] MEDS: GABAPENTIN 400 MG CAPSULE (FP) PO SCH (21:29)
[2017-05-12] MEDS: ATORVASTATIN CA 20 MG TABLET (FP) PO SCH (21:29)
[2017-05-12] MEDS: DOCUSATE SODIUM 100 MG CAPSULE (FP) PO SCH (21:30)
[2017-05-13] MEDS: VITAMINS A AND D TOPICAL OINTMENT 60 GM TUBE TP SCH ×4 (00:57→18:35)
[2017-05-13] MEDS: ESCITALOPRAM OXALATE 10 MG TABLET (FP) PO SCH (06:29)
[2017-05-13] MEDS: FERROUS SO4 325 MG TABLET (FP) PO SCH (07:17)
[2017-05-13] MEDS ORDERED: PT OWN MED DRAWER 7, Y5N ONE (08:59)
[2017-05-13] MEDS: ABACAVIR/DOLUTEGRAVIR/LAMIVUDI (TRIUMEQ) TABLET -NF PO SCH (10:29)
[2017-05-13] MEDS: FLUTICASONE PROP 0.05% 16 GM NASAL SPRAY NS SCH ×2 (10:29→21:34)
[2017-05-13] MEDS: LOSARTAN POTASSIUM 50 MG TABLET (FP) PO SCH (10:29)
[2017-05-13] MEDS: PATIENT'S OWN MEDICATION (NON-FORMULARY) (Omeprazole [Omeprazole] 40 MG) PO SCH (10:30)
[2017-05-13] MEDS: PRENATAL VITAMINS W/ FOLIC ACID TABLET (FP) PO SCH (10:30)
[2017-05-13] MEDS: NAPROXEN 500 MG TABLET (FP) PO SCH (10:30)
[2017-05-13] MEDS: metroNIDAZOLE 250 MG TABLET PO SCH ×2 (10:30→21:31)
[2017-05-13] MEDS: HYDROCORTISONE 1% TOPICAL CREAM 30 GM TUBE TP SCH ×2 (10:31→21:34)
[2017-05-13] MEDS: NICOTINE 21 MG/24 HOURS TOPICAL PATCH TD SCH (10:31)
[2017-05-13] MEDS: FERROUS SO4 300 MG/5 ML ORAL SOLN UNIT DOSE CUPS PO SCH (17:25)
[2017-05-13] MEDS: GABAPENTIN 400 MG CAPSULE (FP) PO SCH (21:31)
[2017-05-13] MEDS: THIAMINE HCL 100 MG TABLET (FP) PO SCH (21:31)
[2017-05-13] MEDS: ATORVASTATIN CA 20 MG TABLET (FP) PO SCH (21:31)
[2017-05-13] MEDS: DOCUSATE SODIUM 100 MG CAPSULE (FP) PO SCH (21:32)
[2017-05-13] MEDS: HYDROCORTISONE ACETATE 25 MG/SUPP.RECT RC SCH (21:33)
[2017-05-13] MEDS: MICONAZOLE NITRATE 100 MG SUPP SUPP.VAG PV SCH (21:34)
[2017-05-14] MEDS: VITAMINS A AND D TOPICAL OINTMENT 60 GM TUBE TP SCH ×4 (00:57→18:30)
[2017-05-14] MEDS: ESCITALOPRAM OXALATE 10 MG TABLET (FP) PO SCH (06:31)
[2017-05-14] MEDS ORDERED: cloNIDine HCL 0.1 MG TABLET PO ONE (06:41)
[2017-05-14] MEDS: FERROUS SO4 300 MG/5 ML ORAL SOLN UNIT DOSE CUPS PO SCH (07:32)
[2017-05-14] MEDS: FERROUS SO4 325 MG TABLET (FP) PO SCH (07:35)
[2017-05-14] MEDS: PATIENT'S OWN MEDICATION (NON-FORMULARY) (Omeprazole [Omeprazole] 40 MG) PO SCH (09:37)
[2017-05-14] MEDS: FLUTICASONE PROP 0.05% 16 GM NASAL SPRAY NS SCH ×2 (09:37→21:30)
[2017-05-14] MEDS: LOSARTAN POTASSIUM 50 MG TABLET (FP) PO SCH (09:37)
[2017-05-14] MEDS: metroNIDAZOLE 250 MG TABLET PO SCH ×2 (09:37→21:29)
[2017-05-14] MEDS: PRENATAL VITAMINS W/ FOLIC ACID TABLET (FP) PO SCH (09:37)
[2017-05-14] MEDS: NICOTINE 21 MG/24 HOURS TOPICAL PATCH TD SCH (09:38)
[2017-05-14] MEDS: ABACAVIR/DOLUTEGRAVIR/LAMIVUDI (TRIUMEQ) TABLET -NF PO SCH (09:38)
[2017-05-14] MEDS: HYDROCORTISONE 1% TOPICAL CREAM 30 GM TUBE TP SCH ×2 (09:38→21:30)
[2017-05-14 10:17] LABS: BASO % 1.9 % (0-2.0); EOS % 8.3 % (0-4.5); HEMATOCRIT 34.5 % (32.4-45.2); HEMOGLOBIN 11.3 GM/dL (10.7-15.3); LYMPH % 37.7 % (8-40); MCH 31.3 pg (25.7-33.7); MCHC 32.8 g/dl (32.0-36.0); MEAN CELL VOLUME 95.5 fl (80-96); MEAN PLT VOLUME 8.5 fl (7.5-11.1); MONO % 13.4 % (3.8-10.2); NEUT % 38.7 % (42.8-82.8); PLATELET COUNT 320 K/MM3 (134-434); RBC 3.62 M/mm3 (3.60-5.2); RDW 14.4 % (11.6-15.6)
[2017-05-14] MEDS ORDERED: PT OWN MED DRAWER 7, Y5N ONE ×2 (10:25→21:31)
[2017-05-14 10:35] LABS: ALBUMIN 3.6 g/dl (3.4-5.0); ANION GAP 8 (8-16); BLOOD UREA NITROGEN 18 mg/dL (7-18); CALCIUM 9.4 mg/dL (8.5-10.1); CHLORIDE 106 mmol/L (98-107); CO2 25 mmol/L (21-32); GLUCOSE,RANDOM 142 mg/dL (74-106); POTASSIUM 4.5 mmol/L (3.5-5.1); SGOT/AST 50 U/L (15-37); SGPT/ALT 62 U/L (12-78); SODIUM 139 mmol/L (136-145)
[2017-05-14 10:37] LABS: ALK PHOS 129 U/L (45-117); BILIRUBIN,TOTAL 0.1 mg/dL (0.2-1.0); CREATININE 0.8 mg/dL (0.55-1.02); TOT PROT 8.1 g/dl (6.4-8.2)
[2017-05-14] MEDS: ACETAMINOPHEN 325 MG TABLET (FP) PO PRN ×2 (14:04→21:34)
[2017-05-14] MEDS: THIAMINE HCL 100 MG TABLET (FP) PO SCH (21:28)
[2017-05-14] MEDS: DOCUSATE SODIUM 100 MG CAPSULE (FP) PO SCH (21:28)
[2017-05-14] MEDS: MICONAZOLE NITRATE 100 MG SUPP SUPP.VAG PV SCH (21:29)
[2017-05-14] MEDS: GABAPENTIN 400 MG CAPSULE (FP) PO SCH (21:29)
[2017-05-14] MEDS: ATORVASTATIN CA 20 MG TABLET (FP) PO SCH (21:29)
[2017-05-14] MEDS: HYDROCORTISONE ACETATE 25 MG/SUPP.RECT RC SCH (21:30)
[2017-05-15] MEDS: VITAMINS A AND D TOPICAL OINTMENT 60 GM TUBE TP SCH ×4 (00:25→17:09)
[2017-05-15] MEDS: ESCITALOPRAM OXALATE 10 MG TABLET (FP) PO SCH (06:07)
[2017-05-15] MEDS ORDERED: PT OWN MED DRAWER 7, Y5N ONE ×4 (07:07→10:37)
[2017-05-15] MEDS: PATIENT'S OWN MEDICATION (NON-FORMULARY) (Omeprazole [Omeprazole] 40 MG) PO SCH (10:00)
[2017-05-15] MEDS: PRENATAL VITAMINS W/ FOLIC ACID TABLET (FP) PO SCH (10:05)
[2017-05-15] MEDS: ABACAVIR/DOLUTEGRAVIR/LAMIVUDI (TRIUMEQ) TABLET -NF PO SCH (10:05)
[2017-05-15] MEDS: NICOTINE 21 MG/24 HOURS TOPICAL PATCH TD SCH (10:05)
[2017-05-15] MEDS: metroNIDAZOLE 250 MG TABLET PO SCH ×2 (10:05→21:25)
[2017-05-15] MEDS: LOSARTAN POTASSIUM 50 MG TABLET (FP) PO SCH (10:05)
[2017-05-15] MEDS: HYDROCORTISONE 1% TOPICAL CREAM 30 GM TUBE TP SCH ×2 (10:06→21:26)
[2017-05-15] MEDS: FLUTICASONE PROP 0.05% 16 GM NASAL SPRAY NS SCH ×2 (10:06→21:27)
[2017-05-15] MEDS ORDERED: IBUPROFEN 400 MG TABLET (FP) PO PRN (12:10)
[2017-05-15] MEDS ORDERED: IBUPROFEN 600 MG TABLET (FP) PO PRN (12:10)
--- NOTE | 2017-05-15 12:32 | PN ---
[facility] Progress Note (SOAP) Subjective: c/o pain left thumb/hand swelling old injury, nasalulcers, reviewedlabs with patient Objective: 05/15/17 12:31 Vital Signs - 24 hr 05/15/17 05/15/17 05/15/17 00:30 03:30 07:02 Temperature 97.9 F Pulse Rate 76 Respiratory 16 16 16 Rate reveiwed labsswollen, tenderlft thumb, nasal scabs Blood Pressure 146/76 05/15/17 09:17 Temperature Pulse Rate 82 Respiratory 18 Rate Blood Pressure 135/83 Laboratory Tests 05/05/17 05/06/17 05/06/17 17:16 06:18 16:41 WBC RBC Hgb Hct MCV MCH MCHC RDW Plt Count MPV Neutrophils % Lymphocytes % Monocytes % Eosinophils % Basophils % Sodium Potassium Chloride Carbon Dioxide Anion Gap BUN Creatinine Creat Clearance w eGFR POC Glucometer 108 176 141 Random Glucose Calcium Total Bilirubin AST ALT Alkaline Phosphatase Total Protein Albumin C.trachomatis Ampl DNA N. gonorrhoeae (CONNOR) 05/07/17 05/07/17 05/08/17 06:24 17:04 06:30 WBC RBC Hgb Hct MCV MCH MCHC RDW Plt Count MPV Neutrophils % Lymphocytes % Monocytes % Eosinophils % Basophils % Sodium Potassium Chloride Carbon Dioxide Anion Gap BUN Creatinine Creat Clearance w eGFR POC Glucometer 136 159 179 Random Glucose Calcium Total Bilirubin AST ALT Alkaline Phosphatase Total Protein Albumin C.trachomatis Ampl DNA N. gonorrhoeae (CONNOR) 05/08/17 05/09/17 05/09/17 17:02 06:34 17:03 WBC RBC Hgb Hct MCV MCH MCHC RDW Plt Count MPV Neutrophils % Lymphocytes % Monocytes % Eosinophils % Basophils % Sodium Potassium Chloride Carbon Dioxide Anion Gap BUN Creatinine Creat Clearance w eGFR POC Glucometer 175 105 122 Random Glucose Calcium Total Bilirubin AST ALT Alkaline Phosphatase Total Protein Albumin C.trachomatis Ampl DNA N. gonorrhoeae (CONNOR) 05/10/17 05/10/17 05/11/17 06:56 16:44 06:38 WBC RBC Hgb Hct MCV MCH MCHC RDW Plt Count MPV Neutrophils % Lymphocytes % Monocytes % Eosinophils % Basophils % Sodium Potassium Chloride Carbon Dioxide Anion Gap BUN Creatinine Creat Clearance w eGFR POC Glucometer 154 106 133 Random Glucose Calcium Total Bilirubin AST ALT Alkaline Phosphatase Total Protein Albumin C.trachomatis Ampl DNA N. gonorrhoeae (CONNOR) 05/11/17 05/12/17 05/12/17 17:03 06:21 17:32 WBC RBC Hgb Hct MCV MCH MCHC RDW Plt Count MPV Neutrophils % Lymphocytes % Monocytes % Eosinophils % Basophils % Sodium Potassium Chloride Carbon Dioxide Anion Gap BUN Creatinine Creat Clearance w eGFR POC Glucometer 92 113 94 Random Glucose Calcium Total Bilirubin AST ALT Alkaline Phosphatase Total Protein Albumin C.trachomatis Ampl DNA N. gonorrhoeae (CONNOR) 05/12/17 05/13/17 05/13/17 21:50 06:28 17:11 WBC RBC Hgb Hct MCV MCH MCHC RDW Plt Count MPV Neutrophils % Lymphocytes % Monocytes % Eosinophils % Basophils % Sodium Potassium Chloride Carbon Dioxide Anion Gap BUN Creatinine Creat Clearance w eGFR POC Glucometer 136 136 Random Glucose Calcium Total Bilirubin AST ALT Alkaline Phosphatase Total Protein Albumin C.trachomatis Ampl DNA Negative N. gonorrhoeae (CONNOR) Negative 05/14/17 05/14/17 05/14/17 06:30 07:48 07:48 WBC 7.0 RBC 3.62 Hgb 11.3 Hct 34.5 MCV 95.5 MCH 31.3 MCHC 32.8 RDW 14.4 Plt Count 320 MPV 8.5 Neutrophils % 38.7 L Lymphocytes % 37.7 Monocytes % 13.4 H Eosinophils % 8.3 H Basophils % 1.9 Sodium 139 Potassium 4.5 Chloride 106 Carbon Dioxide 25 Anion Gap 8 BUN 18 Creatinine 0.8 Creat Clearance w eGFR > 60 POC Glucometer 125 Random Glucose 142 H Calcium 9.4 Total Bilirubin 0.1 L D AST 50 H D ALT 62 D Alkaline Phosphatase 129 H Total Protein 8.1 Albumin 3.6 C.trachomatis Ampl DNA N. gonorrhoeae (CONNOR) 05/14/17 05/15/17 17:20 06:05 WBC RBC Hgb Hct MCV MCH MCHC RDW Plt Count MPV Neutrophils % Lymphocytes % Monocytes % Eosinophils % Basophils % Sodium Potassium Chloride Carbon Dioxide Anion Gap BUN Creatinine Creat Clearance w eGFR POC Glucometer 97 120 Random Glucose Calcium Total Bilirubin AST ALT Alkaline Phosphatase Total Protein Albumin C.trachomatis Ampl DNA N. gonorrhoeae (CONNOR) Assessment: 05/15/17 12:32 narposyn atc for pain and swelling hand, vit a and d oitnment for nose
[2017-05-15] MEDS: NAPROXEN 500 MG TABLET (FP) PO SCH ×2 (13:14→21:25)
[2017-05-15 17:01] LABS: URINE APPEARANCE CLEAR; URINE BILIRUBIN NEGATIVE (NEGATIVE); URINE BLOOD NEGATIVE (NEGATIVE); URINE COLOR YELLOW; URINE GLUCOSE (UA) NEGATIVE (NEGATIVE); URINE KETONE NEGATIVE (NEGATIVE); URINE NITRITE NEGATIVE (NEGATIVE); URINE PROTEIN NEGATIVE (NEGATIVE); URINE UROBILINOGEN NEGATIVE mg/dL (0.2-1.0)
[2017-05-15 17:07] LABS: URINE LEUK ESTERASE 1+ (NEGATIVE)
[2017-05-15 17:08] LABS: EPI CELLS RARE /HPF (FEW); URINE BACTERIA RARE /hpf (NONE SEEN); URINE CASTS 1 /hpf; URINE CRYSTALS RARE /hpf (NONE SEEN)
[2017-05-15] MEDS: HYDROCORTISONE ACETATE 25 MG/SUPP.RECT RC SCH (21:24)
[2017-05-15] MEDS: MICONAZOLE NITRATE 100 MG SUPP SUPP.VAG PV SCH (21:25)
[2017-05-15] MEDS: ATORVASTATIN CA 20 MG TABLET (FP) PO SCH (21:25)
[2017-05-15] MEDS: THIAMINE HCL 100 MG TABLET (FP) PO SCH (21:25)
[2017-05-15] MEDS: GABAPENTIN 400 MG CAPSULE (FP) PO SCH (21:25)
[2017-05-15] MEDS: DOCUSATE SODIUM 100 MG CAPSULE (FP) PO SCH (21:27)
[2017-05-16] MEDS: VITAMINS A AND D TOPICAL OINTMENT 60 GM TUBE TP SCH ×5 (00:24→23:17)
[2017-05-16] MEDS: ESCITALOPRAM OXALATE 10 MG TABLET (FP) PO SCH (06:11)
[2017-05-16] MEDS ORDERED: PT OWN MED DRAWER 7, Y5N ONE ×4 (08:59→21:58)
[2017-05-16] MEDS: NICOTINE 21 MG/24 HOURS TOPICAL PATCH TD SCH (10:19)
[2017-05-16] MEDS: FLUTICASONE PROP 0.05% 16 GM NASAL SPRAY NS SCH ×2 (10:19→21:26)
[2017-05-16] MEDS: ABACAVIR/DOLUTEGRAVIR/LAMIVUDI (TRIUMEQ) TABLET -NF PO SCH (10:19)
[2017-05-16] MEDS: PATIENT'S OWN MEDICATION (NON-FORMULARY) (Omeprazole [Omeprazole] 40 MG) PO SCH (10:19)
[2017-05-16] MEDS: LOSARTAN POTASSIUM 50 MG TABLET (FP) PO SCH (10:20)
[2017-05-16] MEDS: PRENATAL VITAMINS W/ FOLIC ACID TABLET (FP) PO SCH (10:20)
[2017-05-16] MEDS: NAPROXEN 500 MG TABLET (FP) PO SCH ×2 (10:20→21:27)
[2017-05-16] MEDS: HYDROCORTISONE 1% TOPICAL CREAM 30 GM TUBE TP SCH ×2 (10:20→21:26)
[2017-05-16] MEDS: metroNIDAZOLE 250 MG TABLET PO SCH ×2 (10:20→21:25)
[2017-05-16] MEDS: DOCUSATE SODIUM 100 MG CAPSULE (FP) PO SCH (21:26)
[2017-05-16] MEDS: ATORVASTATIN CA 20 MG TABLET (FP) PO SCH (21:26)
[2017-05-16] MEDS: HYDROCORTISONE ACETATE 25 MG/SUPP.RECT RC SCH (21:26)
[2017-05-16] MEDS: GABAPENTIN 400 MG CAPSULE (FP) PO SCH (21:26)
[2017-05-16] MEDS: MICONAZOLE NITRATE 100 MG SUPP SUPP.VAG PV SCH (21:27)
[2017-05-16] MEDS: THIAMINE HCL 100 MG TABLET (FP) PO SCH (21:27)
[2017-05-17] MEDS ORDERED: PT OWN MED DRAWER 7, Y5N ONE ×3 (05:23→10:35)
[2017-05-17] MEDS: VITAMINS A AND D TOPICAL OINTMENT 60 GM TUBE TP SCH ×3 (05:55→17:16)
[2017-05-17] MEDS: ESCITALOPRAM OXALATE 10 MG TABLET (FP) PO SCH (07:34)
[2017-05-17] MEDS: PATIENT'S OWN MEDICATION (NON-FORMULARY) (Omeprazole [Omeprazole] 40 MG) PO SCH (10:10)
[2017-05-17] MEDS: NAPROXEN 500 MG TABLET (FP) PO SCH ×2 (10:11→21:22)
[2017-05-17] MEDS: HYDROCORTISONE 1% TOPICAL CREAM 30 GM TUBE TP SCH ×2 (10:11→21:24)
[2017-05-17] MEDS: LOSARTAN POTASSIUM 50 MG TABLET (FP) PO SCH (10:11)
[2017-05-17] MEDS: FLUTICASONE PROP 0.05% 16 GM NASAL SPRAY NS SCH ×2 (10:11→21:22)
[2017-05-17] MEDS: metroNIDAZOLE 250 MG TABLET PO SCH ×2 (10:11→21:22)
[2017-05-17] MEDS: ABACAVIR/DOLUTEGRAVIR/LAMIVUDI (TRIUMEQ) TABLET -NF PO SCH (10:11)
[2017-05-17] MEDS: NICOTINE 21 MG/24 HOURS TOPICAL PATCH TD SCH (10:11)
[2017-05-17] MEDS: PRENATAL VITAMINS W/ FOLIC ACID TABLET (FP) PO SCH (10:11)
[2017-05-17] MEDS: DOCUSATE SODIUM 100 MG CAPSULE (FP) PO SCH (21:21)
[2017-05-17] MEDS: HYDROCORTISONE ACETATE 25 MG/SUPP.RECT RC SCH (21:21)
[2017-05-17] MEDS: THIAMINE HCL 100 MG TABLET (FP) PO SCH (21:22)
[2017-05-17] MEDS: GABAPENTIN 400 MG CAPSULE (FP) PO SCH (21:22)
[2017-05-17] MEDS: ATORVASTATIN CA 20 MG TABLET (FP) PO SCH (21:22)
[2017-05-17] MEDS: MICONAZOLE NITRATE 100 MG SUPP SUPP.VAG PV SCH (21:23)
[2017-05-18] MEDS: VITAMINS A AND D TOPICAL OINTMENT 60 GM TUBE TP SCH ×4 (00:15→17:14)
[2017-05-18] MEDS ORDERED: PT OWN MED DRAWER 7, Y5N ONE ×2 (05:28→08:35)
[2017-05-18] MEDS: ESCITALOPRAM OXALATE 10 MG TABLET (FP) PO SCH (07:30)
[2017-05-18] MEDS: ABACAVIR/DOLUTEGRAVIR/LAMIVUDI (TRIUMEQ) TABLET -NF PO SCH (09:52)
[2017-05-18] MEDS: FLUTICASONE PROP 0.05% 16 GM NASAL SPRAY NS SCH ×2 (09:52→21:32)
[2017-05-18] MEDS: HYDROCORTISONE 1% TOPICAL CREAM 30 GM TUBE TP SCH ×2 (09:52→21:32)
[2017-05-18] MEDS: PATIENT'S OWN MEDICATION (NON-FORMULARY) (Omeprazole [Omeprazole] 40 MG) PO SCH (09:52)
[2017-05-18] MEDS: LOSARTAN POTASSIUM 50 MG TABLET (FP) PO SCH (09:53)
[2017-05-18] MEDS: NICOTINE 21 MG/24 HOURS TOPICAL PATCH TD SCH (09:53)
[2017-05-18] MEDS: metroNIDAZOLE 250 MG TABLET PO SCH ×2 (09:53→21:30)
[2017-05-18] MEDS: PRENATAL VITAMINS W/ FOLIC ACID TABLET (FP) PO SCH (09:53)
[2017-05-18] MEDS: NAPROXEN 500 MG TABLET (FP) PO SCH ×2 (09:53→21:30)
--- NOTE | 2017-05-18 19:46 | PN ---
[facility] Progress Note Note: Patients BP continues to be elevated. BGM controlled. Losartan changed to 50mg BID. Stat dose 50 mg ordered. Continue to monitor patient.
[2017-05-18] MEDS ORDERED: LOSARTAN POTASSIUM 50 MG TABLET (FP) PO ONE (20:00)
[2017-05-18] MEDS: GABAPENTIN 400 MG CAPSULE (FP) PO SCH (21:30)
[2017-05-18] MEDS: ATORVASTATIN CA 20 MG TABLET (FP) PO SCH (21:30)
[2017-05-18] MEDS: THIAMINE HCL 100 MG TABLET (FP) PO SCH (21:30)
[2017-05-18] MEDS: DOCUSATE SODIUM 100 MG CAPSULE (FP) PO SCH (21:32)
[2017-05-18] MEDS: HYDROCORTISONE ACETATE 25 MG/SUPP.RECT RC SCH (21:32)
[2017-05-18] MEDS: MICONAZOLE NITRATE 100 MG SUPP SUPP.VAG PV SCH (21:33)
[2017-05-19] MEDS: VITAMINS A AND D TOPICAL OINTMENT 60 GM TUBE TP SCH ×4 (00:34→17:08)
[2017-05-19] MEDS: ESCITALOPRAM OXALATE 10 MG TABLET (FP) PO SCH (06:24)
[2017-05-19] MEDS: LOSARTAN POTASSIUM 50 MG TABLET (FP) PO SCH ×2 (10:03→21:38)
[2017-05-19] MEDS: NICOTINE 21 MG/24 HOURS TOPICAL PATCH TD SCH (10:03)
[2017-05-19] MEDS: NAPROXEN 500 MG TABLET (FP) PO SCH ×2 (10:04→21:38)
[2017-05-19] MEDS: FLUTICASONE PROP 0.05% 16 GM NASAL SPRAY NS SCH ×2 (10:04→21:41)
[2017-05-19] MEDS: PATIENT'S OWN MEDICATION (NON-FORMULARY) (Omeprazole [Omeprazole] 40 MG) PO SCH (10:04)
[2017-05-19] MEDS: HYDROCORTISONE 1% TOPICAL CREAM 30 GM TUBE TP SCH ×2 (10:04→21:41)
[2017-05-19] MEDS: ABACAVIR/DOLUTEGRAVIR/LAMIVUDI (TRIUMEQ) TABLET -NF PO SCH (10:05)
[2017-05-19] MEDS: PRENATAL VITAMINS W/ FOLIC ACID TABLET (FP) PO SCH (10:05)
[2017-05-19] MEDS: ATORVASTATIN CA 20 MG TABLET (FP) PO SCH (21:38)
[2017-05-19] MEDS: GABAPENTIN 400 MG CAPSULE (FP) PO SCH (21:38)
[2017-05-19] MEDS: THIAMINE HCL 100 MG TABLET (FP) PO SCH (21:38)
[2017-05-19] MEDS: diphenhydrAMINE HCL 50 MG CAPSULE PO PRN (21:40)
[2017-05-19] MEDS: COLLOIDAL OATMEAL 1 BAR EACH TP PRN (21:40)
[2017-05-19] MEDS: HYDROCORTISONE ACETATE 25 MG/SUPP.RECT RC SCH (21:41)
[2017-05-19] MEDS: DOCUSATE SODIUM 100 MG CAPSULE (FP) PO SCH (21:41)
[2017-05-19] MEDS: MICONAZOLE NITRATE 100 MG SUPP SUPP.VAG PV SCH (21:41)
[2017-05-20] MEDS: VITAMINS A AND D TOPICAL OINTMENT 60 GM TUBE TP SCH ×4 (00:19→17:14)
[2017-05-20] MEDS ORDERED: PT OWN MED DRAWER 7, Y5N ONE ×3 (03:25→22:36)
[2017-05-20] MEDS: ESCITALOPRAM OXALATE 10 MG TABLET (FP) PO SCH (06:13)
[2017-05-20] MEDS: HYDROCORTISONE 1% TOPICAL CREAM 30 GM TUBE TP SCH ×2 (10:24→21:20)
[2017-05-20] MEDS: PATIENT'S OWN MEDICATION (NON-FORMULARY) (Omeprazole [Omeprazole] 40 MG) PO SCH (10:24)
[2017-05-20] MEDS: LOSARTAN POTASSIUM 50 MG TABLET (FP) PO SCH ×2 (10:24→21:20)
[2017-05-20] MEDS: NAPROXEN 500 MG TABLET (FP) PO SCH ×2 (10:24→21:20)
[2017-05-20] MEDS: FLUTICASONE PROP 0.05% 16 GM NASAL SPRAY NS SCH ×2 (10:24→21:18)
[2017-05-20] MEDS: PRENATAL VITAMINS W/ FOLIC ACID TABLET (FP) PO SCH (10:24)
[2017-05-20] MEDS: ABACAVIR/DOLUTEGRAVIR/LAMIVUDI (TRIUMEQ) TABLET -NF PO SCH (10:24)
[2017-05-20] MEDS: NICOTINE 21 MG/24 HOURS TOPICAL PATCH TD SCH (10:25)
[2017-05-20] MEDS: MICONAZOLE NITRATE 100 MG SUPP SUPP.VAG PV SCH (21:18)
[2017-05-20] MEDS: ATORVASTATIN CA 20 MG TABLET (FP) PO SCH (21:20)
[2017-05-20] MEDS: DOCUSATE SODIUM 100 MG CAPSULE (FP) PO SCH (21:20)
[2017-05-20] MEDS: HYDROCORTISONE ACETATE 25 MG/SUPP.RECT RC SCH (21:20)
[2017-05-20] MEDS: GABAPENTIN 400 MG CAPSULE (FP) PO SCH (21:20)
[2017-05-20] MEDS: THIAMINE HCL 100 MG TABLET (FP) PO SCH (21:20)
[2017-05-20] MEDS: diphenhydrAMINE HCL 50 MG CAPSULE PO PRN (21:21)
[2017-05-21] MEDS: VITAMINS A AND D TOPICAL OINTMENT 60 GM TUBE TP SCH ×4 (00:15→17:37)
[2017-05-21] MEDS: ESCITALOPRAM OXALATE 10 MG TABLET (FP) PO SCH (06:26)
[2017-05-21] MEDS ORDERED: cloNIDine HCL 0.1 MG TABLET PO ONE (06:55)
[2017-05-21] MEDS: ACETAMINOPHEN 325 MG TABLET (FP) PO PRN (08:41)
[2017-05-21] MEDS: PRENATAL VITAMINS W/ FOLIC ACID TABLET (FP) PO SCH (10:20)
[2017-05-21] MEDS: NAPROXEN 500 MG TABLET (FP) PO SCH ×2 (10:20→21:28)
[2017-05-21] MEDS: NICOTINE 21 MG/24 HOURS TOPICAL PATCH TD SCH (10:20)
[2017-05-21] MEDS: ABACAVIR/DOLUTEGRAVIR/LAMIVUDI (TRIUMEQ) TABLET -NF PO SCH (10:20)
[2017-05-21] MEDS: LOSARTAN POTASSIUM 50 MG TABLET (FP) PO SCH ×2 (10:20→21:28)
[2017-05-21] MEDS: PATIENT'S OWN MEDICATION (NON-FORMULARY) (Omeprazole [Omeprazole] 40 MG) PO SCH (10:21)
[2017-05-21] MEDS: FLUTICASONE PROP 0.05% 16 GM NASAL SPRAY NS SCH ×2 (10:21→21:29)
[2017-05-21] MEDS: HYDROCORTISONE 1% TOPICAL CREAM 30 GM TUBE TP SCH ×2 (10:21→21:30)
[2017-05-21] MEDS ORDERED: PT OWN MED DRAWER 7, Y5N ONE (19:28)
[2017-05-21] MEDS: THIAMINE HCL 100 MG TABLET (FP) PO SCH (21:28)
[2017-05-21] MEDS: ATORVASTATIN CA 20 MG TABLET (FP) PO SCH (21:28)
[2017-05-21] MEDS: GABAPENTIN 400 MG CAPSULE (FP) PO SCH (21:28)
[2017-05-21] MEDS: HYDROCORTISONE ACETATE 25 MG/SUPP.RECT RC SCH (21:29)
[2017-05-21] MEDS: DOCUSATE SODIUM 100 MG CAPSULE (FP) PO SCH (21:29)
[2017-05-21] MEDS: diphenhydrAMINE HCL 50 MG CAPSULE PO PRN (21:33)
[2017-05-22] MEDS: VITAMINS A AND D TOPICAL OINTMENT 60 GM TUBE TP SCH ×4 (00:58→17:15)
[2017-05-22] MEDS: ESCITALOPRAM OXALATE 10 MG TABLET (FP) PO SCH (06:25)
[2017-05-22] MEDS ORDERED: PT OWN MED DRAWER 7, Y5N ONE (08:48)
[2017-05-22] MEDS: PRENATAL VITAMINS W/ FOLIC ACID TABLET (FP) PO SCH (10:14)
[2017-05-22] MEDS: NAPROXEN 500 MG TABLET (FP) PO SCH ×2 (10:14→21:30)
[2017-05-22] MEDS: ABACAVIR/DOLUTEGRAVIR/LAMIVUDI (TRIUMEQ) TABLET -NF PO SCH (10:14)
[2017-05-22] MEDS: LOSARTAN POTASSIUM 50 MG TABLET (FP) PO SCH ×2 (10:14→21:30)
[2017-05-22] MEDS: PATIENT'S OWN MEDICATION (NON-FORMULARY) (Omeprazole [Omeprazole] 40 MG) PO SCH (10:14)
[2017-05-22] MEDS: FLUTICASONE PROP 0.05% 16 GM NASAL SPRAY NS SCH ×2 (10:15→21:32)
[2017-05-22] MEDS: HYDROCORTISONE 1% TOPICAL CREAM 30 GM TUBE TP SCH ×2 (10:15→21:32)
[2017-05-22] MEDS: NICOTINE 21 MG/24 HOURS TOPICAL PATCH TD SCH (10:15)
[2017-05-22] MEDS: GABAPENTIN 400 MG CAPSULE (FP) PO SCH (21:30)
[2017-05-22] MEDS: THIAMINE HCL 100 MG TABLET (FP) PO SCH (21:30)
[2017-05-22] MEDS: ATORVASTATIN CA 20 MG TABLET (FP) PO SCH (21:30)
[2017-05-22] MEDS: diphenhydrAMINE HCL 50 MG CAPSULE PO PRN (21:31)
[2017-05-22] MEDS: HYDROCORTISONE ACETATE 25 MG/SUPP.RECT RC SCH (21:32)
[2017-05-22] MEDS: DOCUSATE SODIUM 100 MG CAPSULE (FP) PO SCH (21:32)
[2017-05-23] MEDS: VITAMINS A AND D TOPICAL OINTMENT 60 GM TUBE TP SCH ×4 (00:30→17:07)
[2017-05-23] MEDS ORDERED: PT OWN MED DRAWER 7, Y5N ONE (05:58)
[2017-05-23] MEDS: ESCITALOPRAM OXALATE 10 MG TABLET (FP) PO SCH (06:20)
[2017-05-23] MEDS: PATIENT'S OWN MEDICATION (NON-FORMULARY) (Omeprazole [Omeprazole] 40 MG) PO SCH (10:21)
[2017-05-23] MEDS: ABACAVIR/DOLUTEGRAVIR/LAMIVUDI (TRIUMEQ) TABLET -NF PO SCH (10:21)
[2017-05-23] MEDS: PRENATAL VITAMINS W/ FOLIC ACID TABLET (FP) PO SCH (10:21)
[2017-05-23] MEDS: NAPROXEN 500 MG TABLET (FP) PO SCH ×2 (10:21→21:28)
[2017-05-23] MEDS: HYDROCORTISONE 1% TOPICAL CREAM 30 GM TUBE TP SCH ×2 (10:21→21:28)
[2017-05-23] MEDS: LOSARTAN POTASSIUM 50 MG TABLET (FP) PO SCH ×2 (10:21→21:28)
[2017-05-23] MEDS: FLUTICASONE PROP 0.05% 16 GM NASAL SPRAY NS SCH ×2 (10:21→21:29)
[2017-05-23] MEDS: NICOTINE 21 MG/24 HOURS TOPICAL PATCH TD SCH (10:22)
[2017-05-23] MEDS: MAG HYDROX/AL HYDROX/SIMETH 30 ML UNIT-DOSE CUP PO PRN (13:37)
[2017-05-23] MEDS: THIAMINE HCL 100 MG TABLET (FP) PO SCH (21:28)
[2017-05-23] MEDS: ATORVASTATIN CA 20 MG TABLET (FP) PO SCH (21:28)
[2017-05-23] MEDS: diphenhydrAMINE HCL 50 MG CAPSULE PO PRN (21:29)
[2017-05-23] MEDS: DOCUSATE SODIUM 100 MG CAPSULE (FP) PO SCH (21:29)
[2017-05-23] MEDS: HYDROCORTISONE ACETATE 25 MG/SUPP.RECT RC SCH (21:29)
[2017-05-23] MEDS: GABAPENTIN 400 MG CAPSULE (FP) PO SCH (21:30)
[2017-05-24] MEDS: VITAMINS A AND D TOPICAL OINTMENT 60 GM TUBE TP SCH ×5 (00:21→23:05)
[2017-05-24] MEDS: ESCITALOPRAM OXALATE 10 MG TABLET (FP) PO SCH (06:58)
[2017-05-24] MEDS ORDERED: PT OWN MED DRAWER 7, Y5N ONE (08:24)
[2017-05-24] MEDS: PRENATAL VITAMINS W/ FOLIC ACID TABLET (FP) PO SCH (09:28)
[2017-05-24] MEDS: FLUTICASONE PROP 0.05% 16 GM NASAL SPRAY NS SCH ×2 (09:28→21:14)
[2017-05-24] MEDS: NAPROXEN 500 MG TABLET (FP) PO SCH ×2 (09:28→21:13)
[2017-05-24] MEDS: LOSARTAN POTASSIUM 50 MG TABLET (FP) PO SCH ×2 (09:28→21:13)
[2017-05-24] MEDS: ABACAVIR/DOLUTEGRAVIR/LAMIVUDI (TRIUMEQ) TABLET -NF PO SCH (09:29)
[2017-05-24] MEDS: NICOTINE 21 MG/24 HOURS TOPICAL PATCH TD SCH (09:29)
[2017-05-24] MEDS: PATIENT'S OWN MEDICATION (NON-FORMULARY) (Omeprazole [Omeprazole] 40 MG) PO SCH (09:29)
[2017-05-24] MEDS: HYDROCORTISONE 1% TOPICAL CREAM 30 GM TUBE TP SCH ×2 (09:29→21:13)
[2017-05-24] MEDS: ATORVASTATIN CA 20 MG TABLET (FP) PO SCH (21:12)
[2017-05-24] MEDS: THIAMINE HCL 100 MG TABLET (FP) PO SCH (21:12)
[2017-05-24] MEDS: DOCUSATE SODIUM 100 MG CAPSULE (FP) PO SCH (21:12)
[2017-05-24] MEDS: GABAPENTIN 400 MG CAPSULE (FP) PO SCH (21:13)
[2017-05-24] MEDS: diphenhydrAMINE HCL 50 MG CAPSULE PO PRN (21:16)
[2017-05-24] MEDS: HYDROCORTISONE ACETATE 25 MG/SUPP.RECT RC SCH (22:03)
[2017-05-25] MEDS: ESCITALOPRAM OXALATE 10 MG TABLET (FP) PO SCH (06:29)
[2017-05-25] MEDS: VITAMINS A AND D TOPICAL OINTMENT 60 GM TUBE TP SCH ×4 (06:29→23:38)
[2017-05-25] MEDS ORDERED: PT OWN MED DRAWER 7, Y5N ONE (08:26)
[2017-05-25] MEDS: LOSARTAN POTASSIUM 50 MG TABLET (FP) PO SCH ×2 (09:44→21:28)
[2017-05-25] MEDS: FLUTICASONE PROP 0.05% 16 GM NASAL SPRAY NS SCH ×2 (09:44→21:29)
[2017-05-25] MEDS: ABACAVIR/DOLUTEGRAVIR/LAMIVUDI (TRIUMEQ) TABLET -NF PO SCH (09:45)
[2017-05-25] MEDS: PATIENT'S OWN MEDICATION (NON-FORMULARY) (Omeprazole [Omeprazole] 40 MG) PO SCH (09:45)
[2017-05-25] MEDS: HYDROCORTISONE 1% TOPICAL CREAM 30 GM TUBE TP SCH ×2 (09:45→21:29)
[2017-05-25] MEDS: NAPROXEN 500 MG TABLET (FP) PO SCH ×2 (09:45→21:28)
[2017-05-25] MEDS: PRENATAL VITAMINS W/ FOLIC ACID TABLET (FP) PO SCH (09:45)
[2017-05-25] MEDS: NICOTINE 21 MG/24 HOURS TOPICAL PATCH TD SCH (10:25)
[2017-05-25] MEDS: amLODIPine BESYLATE 5 MG TABLET (FP) PO SCH (12:40)
[2017-05-25] MEDS: guaiFENesin/D-METHORPHAN HB 10 ML UNIT-DOSE CUPS PO PRN (16:33)
[2017-05-25] MEDS: GABAPENTIN 400 MG CAPSULE (FP) PO SCH (21:28)
[2017-05-25] MEDS: DOCUSATE SODIUM 100 MG CAPSULE (FP) PO SCH (21:28)
[2017-05-25] MEDS: THIAMINE HCL 100 MG TABLET (FP) PO SCH (21:28)
[2017-05-25] MEDS: ATORVASTATIN CA 20 MG TABLET (FP) PO SCH (21:28)
[2017-05-25] MEDS: diphenhydrAMINE HCL 50 MG CAPSULE PO PRN (21:29)
[2017-05-25] MEDS: HYDROCORTISONE ACETATE 25 MG/SUPP.RECT RC SCH (21:30)
[2017-05-26] MEDS: VITAMINS A AND D TOPICAL OINTMENT 60 GM TUBE TP SCH ×3 (06:21→17:20)
[2017-05-26] MEDS: ESCITALOPRAM OXALATE 10 MG TABLET (FP) PO SCH (06:22)
[2017-05-26] MEDS: PATIENT'S OWN MEDICATION (NON-FORMULARY) (Omeprazole [Omeprazole] 40 MG) PO SCH (10:21)
[2017-05-26] MEDS: FLUTICASONE PROP 0.05% 16 GM NASAL SPRAY NS SCH ×2 (10:21→21:36)
[2017-05-26] MEDS: PRENATAL VITAMINS W/ FOLIC ACID TABLET (FP) PO SCH (10:21)
[2017-05-26] MEDS: HYDROCORTISONE 1% TOPICAL CREAM 30 GM TUBE TP SCH ×2 (10:21→21:35)
[2017-05-26] MEDS: amLODIPine BESYLATE 5 MG TABLET (FP) PO SCH (10:21)
[2017-05-26] MEDS: LOSARTAN POTASSIUM 50 MG TABLET (FP) PO SCH ×2 (10:21→21:34)
[2017-05-26] MEDS: NICOTINE 21 MG/24 HOURS TOPICAL PATCH TD SCH (10:21)
[2017-05-26] MEDS: NAPROXEN 500 MG TABLET (FP) PO SCH ×2 (10:21→21:34)
[2017-05-26] MEDS: ABACAVIR/DOLUTEGRAVIR/LAMIVUDI (TRIUMEQ) TABLET -NF PO SCH (10:21)
--- NOTE | 2017-05-26 16:31 | PN ---
Psychiatric Progress Note Vital Signs: Vital Signs Period Temp Pulse Resp BP Sys/Laws Pulse Ox Last 24 Hr 98.1 F 89-102 16-18 139-164/70-85 Date of Session: 05/26/17 Chief Complaint:: Sean not sleeping again,Samir worked for 1-2 noghts only." HPI: Patient addressed Alcohol and Cocaine dependence comorbid with Substance induced mood disoredr. ROS: Multiple medical conditions. Current Medications: Active Medications Generic Name Dose Route Start Last Admin Trade Name Freq PRN Reason Stop Dose Admin Abacavir/Dolutegravir/Lamivudine 1 each 05/06/17 10:00 05/26/17 10:21 Triumeq (Non-Formulary) PO 1 each DAILY JOSE L Administration Acetaminophen 650 mg 05/05/17 15:09 05/21/17 08:41 Tylenol - PO 650 mg Q4H PRN Administration FEVER OR PAIN Al Hydroxide/Mg Hydroxide 30 ml 05/05/17 15:09 05/23/17 13:37 Mylanta Oral Suspension - PO 30 ml Q6H PRN Administration DYSPEPSIA Albuterol Sulfate 2 puff 05/05/17 15:12 Ventolin Hfa Inhaler - IH Q4H PRN ASTHMA Amlodipine Besylate 5 mg 05/25/17 12:30 05/26/17 10:21 Norvasc - PO 5 mg DAILY JOSE L Administration Atorvastatin Calcium 20 mg 05/05/17 22:00 05/25/17 21:28 Lipitor - PO 20 mg HS JOSE L Administration Colloidal Oatmeal 1 applic 05/06/17 11:38 05/19/17 21:40 Aveeno Soap - TP 1 applic DAILY PRN Administration HYGEINE Diphenhydramine HCl 50 mg 05/19/17 16:48 05/25/17 21:29 Benadryl - PO 50 mg HS PRN Administration INSOMNIA Docusate Sodium 300 mg 05/06/17 22:00 05/25/17 21:28 Colace - PO Not Given HS JOSE L Escitalopram Oxalate 10 mg 05/08/17 07:00 05/26/17 06:22 Lexapro - PO 10 mg AM JOSE L Administration Eucalyptus/Menthol/Phenol/Sorbitol 1 each 05/05/17 15:09 Cepastat Lozenge - MM Q4H PRN SORE THROAT Fluticasone Propionate 1 spray 05/05/17 22:00 05/26/17 10:21 Flonase - NS Not Given BID JOSE L Gabapentin 800 mg 05/06/17 22:00 05/25/17 21:28 Neurontin - PO 800 mg HS JOSE L Administration Guaifenesin 10 ml 05/05/17 15:09 05/25/17 16:33 Robitussin Dm - PO 10 ml Q6H PRN Administration COUGH Hydrocortisone 1 applic 05/05/17 22:00 05/26/17 10:21 Hytone 1% Cream - TP Not Given BID JOSE L Hydrocortisone Acetate 25 mg 05/13/17 22:00 05/25/17 21:30 Anusol Hc Suppository - RC Not Given HS [facility] Hydroxyzine Pamoate 50 mg 05/05/17 15:09 Vistaril - PO Q4H PRN AGITATION Lactic Acid 1 applic 05/05/17 15:12 05/11/17 09:52 Lac-Hydrin 12 TP 1 applic PRN PRN Administration DRY SKIN Loperamide HCl 4 mg 05/05/17 15:09 Imodium - PO Q6H PRN DIARRHEA Losartan Potassium 50 mg 05/19/17 10:00 05/26/17 10:21 Cozaar - PO 50 mg BID JOSE L Administration Magnesium Citrate 300 ml 05/05/17 15:09 Citroma - PO Q48H PRN CONSTIPATION Magnesium Hydroxide 30 ml 05/05/17 15:09 Milk Of Magnesia - PO DAILY PRN CONSTIPATION Metformin HCl 750 mg 05/06/17 07:00 05/26/17 06:22 Glucophage Xr - PO 750 mg DAILY@0700,1630 JOSE L Administration Naproxen 500 mg 05/15/17 13:00 05/26/17 10:21 Naprosyn - PO 500 mg BID JOSE L Administration Nicotine 21 mg 05/05/17 16:00 05/26/17 10:21 Nicoderm Patch - TD Not Given DAILY [facility] Non-Formulary Medication 40 mg 05/06/17 10:00 05/26/17 10:21 Omeprazole [Omeprazole] PO 40 mg DAILY JOSE L Administration Multivit/Folic Acid/Iron 1 tab 05/06/17 10:00 05/26/17 10:21 Vitamins (Sjr) - PO 1 tab DAILY JOSE L Administration Pseudoephedrine/Triprolidine 1 combo 05/05/17 15:09 Actifed - PO TID PRN NASAL CONGESTION Thiamine HCl 100 mg 05/05/17 22:00 05/25/17 21:28 Vitamin B1 - PO 100 mg HS JOSE L Administration Vitamin A/Vitamin D 1 applic 05/09/17 18:00 05/26/17 11:33 Vitamin A & D Top Oint - TP Not Given Q6HPO JOSE L Current Side Effect: No Lab tests ordered: No Lab tests reviewed: Yes Provider note:: Chart was revuewed,patient was seen in my office .She reports sleeping difficulties again,stating that Benadryl helped only at the beginning, then she started having difficulties to fallasleep and inability to stay in sleep.[id number] mg po hs will be adjusted to 100 mg o hs.Supportive therapy haw been provided including discussion of relaxation,sleep improving techniques. Total face to face time:: 25 Mental Status Exam - Mental Status Exam Alert and Oriented to: Time, Place, Person Cognitive Function: Grossly Intact Patient Appearance: Unkempt Mood: Anxious Affect: Mood Congruent, Labile Patient Behavior: Cooperative Speech Pattern: Clear Voice Loudness: Normal Thought Process: Goal Oriented Thought Disorder: Not Present Hallucinations: Denies Suicidal Ideation: Denies Homicidal Ideation: Denies Insight/Judgement: Fair Sleep: Difficulty falling asleep Appetite: Fair Muscle strength/Tone: Normal Gait/Station: Normal Psychiatric Treatment Plan - Problem List (1) History of carpal tunnel surgery of right wrist Current Visit: Yes (2) History of neck surgery Current Visit: Yes (3) Neuropathy Current Visit: Yes (4) Nicotine dependence Current Visit: Yes Qualifiers: Nicotine product type: cigarettes Substance use status: in withdrawal Qualified Code(s): F17.213 - Nicotine dependence, cigarettes, with withdrawal (5) HIV (human immunodeficiency virus infection) Current Visit: Yes (6) Cocaine dependence Current Visit: Yes Qualifiers: Substance use status: uncomplicated Qualified Code(s): F14.20 - Cocaine dependence, uncomplicated (7) DM2 (diabetes mellitus, type 2) Current Visit: Yes Qualifiers: Diabetes mellitus complication status: without complication Diabetes mellitus president and cmo insulin use: without senior living use Qualified Code(s): E11.9 - Type 2 diabetes mellitus without complications (8) Drug-induced mood disorder Current Visit: Yes (9) Essential (primary) hypertension Current Visit: Yes (10) HIV (human immunodeficiency virus infection) Current Visit: Yes (11) History of cervical cancer Current Visit: Yes
[2017-05-26] MEDS ORDERED: hydrOXYzine PAMOATE 50 MG CAPSULE (FP) PO PRN (18:30)
[2017-05-26] MEDS: GABAPENTIN 400 MG CAPSULE (FP) PO SCH (21:34)
[2017-05-26] MEDS: THIAMINE HCL 100 MG TABLET (FP) PO SCH (21:34)
[2017-05-26] MEDS: ATORVASTATIN CA 20 MG TABLET (FP) PO SCH (21:34)
[2017-05-26] MEDS: DOCUSATE SODIUM 100 MG CAPSULE (FP) PO SCH (21:36)
[2017-05-26] MEDS: HYDROCORTISONE ACETATE 25 MG/SUPP.RECT RC SCH (21:36)
[2017-05-26] MEDS: diphenhydrAMINE HCL 25 MG CAPSULE (FP) PO PRN (21:38)
[2017-05-27] MEDS: VITAMINS A AND D TOPICAL OINTMENT 60 GM TUBE TP SCH ×4 (00:15→17:01)
[2017-05-27] MEDS ORDERED: PT OWN MED DRAWER 7, Y5N ONE ×2 (05:55→08:47)
[2017-05-27] MEDS: ESCITALOPRAM OXALATE 10 MG TABLET (FP) PO SCH (06:18)
[2017-05-27] MEDS: amLODIPine BESYLATE 5 MG TABLET (FP) PO SCH ×2 (07:39→10:30)
[2017-05-27] MEDS: NICOTINE 21 MG/24 HOURS TOPICAL PATCH TD SCH (10:22)
[2017-05-27] MEDS: PATIENT'S OWN MEDICATION (NON-FORMULARY) (Omeprazole [Omeprazole] 40 MG) PO SCH (10:23)
[2017-05-27] MEDS: NAPROXEN 500 MG TABLET (FP) PO SCH ×2 (10:23→21:34)
[2017-05-27] MEDS: HYDROCORTISONE 1% TOPICAL CREAM 30 GM TUBE TP SCH ×2 (10:23→21:35)
[2017-05-27] MEDS: PRENATAL VITAMINS W/ FOLIC ACID TABLET (FP) PO SCH (10:23)
[2017-05-27] MEDS: LOSARTAN POTASSIUM 50 MG TABLET (FP) PO SCH ×2 (10:23→21:34)
[2017-05-27] MEDS: FLUTICASONE PROP 0.05% 16 GM NASAL SPRAY NS SCH ×2 (10:23→21:36)
[2017-05-27] MEDS: ABACAVIR/DOLUTEGRAVIR/LAMIVUDI (TRIUMEQ) TABLET -NF PO SCH (10:23)
[2017-05-27] MEDS: THIAMINE HCL 100 MG TABLET (FP) PO SCH (21:34)
[2017-05-27] MEDS: GABAPENTIN 400 MG CAPSULE (FP) PO SCH (21:34)
[2017-05-27] MEDS: ATORVASTATIN CA 20 MG TABLET (FP) PO SCH (21:35)
[2017-05-27] MEDS: DOCUSATE SODIUM 100 MG CAPSULE (FP) PO SCH (21:36)
[2017-05-27] MEDS: HYDROCORTISONE ACETATE 25 MG/SUPP.RECT RC SCH (21:36)
[2017-05-27] MEDS: diphenhydrAMINE HCL 25 MG CAPSULE (FP) PO PRN (21:36)
[2017-05-27] MEDS: guaiFENesin/D-METHORPHAN HB 10 ML UNIT-DOSE CUPS PO PRN (21:37)
[2017-05-28] MEDS: VITAMINS A AND D TOPICAL OINTMENT 60 GM TUBE TP SCH ×4 (00:35→17:08)
[2017-05-28] MEDS: ESCITALOPRAM OXALATE 10 MG TABLET (FP) PO SCH (06:20)
[2017-05-28] MEDS ORDERED: cloNIDine HCL 0.1 MG TABLET PO ONE (06:30)
--- NOTE | 2017-05-28 08:07 | PN ---
[facility] Progress Note Note: Patient's blood pressure was elevated
--- NOTE | 2017-05-28 09:51 | PN ---
S Progress Note (SOAP) Subjective: had elevated bp earlymorning associated with numbness and tingling of left hand no weakness, clonidine given, bp wnl and ekg repeated - no change. no denies chest pain and shortness of breath eeleavated bp also associated with clark and nose bleed now both resolved eating breakfast Objective: 05/28/17 09:50 Vital Signs - 24 hr 05/28/17 05/28/17 05/28/17 00:30 03:30 07:31 Temperature 97.9 F Pulse Rate 84 Respiratory 16 16 18 Rate Blood Pressure 169/103 05/28/17 05/28/17 07:47 09:28 Temperature 97.9 F Pulse Rate 99 H 93 H Respiratory 18 Rate Blood Pressure 120/75 110/72 Laboratory Tests 05/05/17 05/06/17 05/06/17 17:16 06:18 16:41 WBC RBC Hgb Hct MCV MCH MCHC RDW Plt Count MPV Neutrophils % Lymphocytes % Monocytes % Eosinophils % Basophils % Sodium Potassium Chloride Carbon Dioxide Anion Gap BUN Creatinine Creat Clearance w eGFR POC Glucometer 108 176 141 Random Glucose Calcium Total Bilirubin AST ALT Alkaline Phosphatase Total Protein Albumin Urine Color Urine Appearance Urine pH Ur Specific Dexter Urine Protein Urine Glucose (UA) Urine Ketones Urine Blood Urine Nitrite Urine Bilirubin Urine Urobilinogen Ur Leukocyte Esterase Urine WBC (Auto) Urine RBC (Auto) Ur Epithelial Cells Urine Crystals Urine Bacteria Urine Casts C.trachomatis Ampl DNA N. gonorrhoeae (CONNOR) 05/07/17 05/07/17 05/08/17 06:24 17:04 06:30 WBC RBC Hgb Hct MCV MCH MCHC RDW Plt Count MPV Neutrophils % Lymphocytes % Monocytes % Eosinophils % Basophils % Sodium Potassium Chloride Carbon Dioxide Anion Gap BUN Creatinine Creat Clearance w eGFR POC Glucometer 136 159 179 Random Glucose Calcium Total Bilirubin AST ALT Alkaline Phosphatase Total Protein Albumin Urine Color Urine Appearance Urine pH Ur Specific Dexter Urine Protein Urine Glucose (UA) Urine Ketones Urine Blood Urine Nitrite Urine Bilirubin Urine Urobilinogen Ur Leukocyte Esterase Urine WBC (Auto) Urine RBC (Auto) Ur Epithelial Cells Urine Crystals Urine Bacteria Urine Casts C.trachomatis Ampl DNA N. gonorrhoeae (CONNOR) 05/08/17 05/09/17 05/09/17 17:02 06:34 17:03 WBC RBC Hgb Hct MCV MCH MCHC RDW Plt Count MPV Neutrophils % Lymphocytes % Monocytes % Eosinophils % Basophils % Sodium Potassium Chloride Carbon Dioxide Anion Gap BUN Creatinine Creat Clearance w eGFR POC Glucometer 175 105 122 Random Glucose Calcium Total Bilirubin AST ALT Alkaline Phosphatase Total Protein Albumin Urine Color Urine Appearance Urine pH Ur Specific Dexter Urine Protein Urine Glucose (UA) Urine Ketones Urine Blood Urine Nitrite Urine Bilirubin Urine Urobilinogen Ur Leukocyte Esterase Urine WBC (Auto) Urine RBC (Auto) Ur Epithelial Cells Urine Crystals Urine Bacteria Urine Casts C.trachomatis Ampl DNA N. gonorrhoeae (CONNOR) 05/10/17 05/10/17 05/11/17 06:56 16:44 06:38 WBC RBC Hgb Hct MCV MCH MCHC RDW Plt Count MPV Neutrophils % Lymphocytes % Monocytes % Eosinophils % Basophils % Sodium Potassium Chloride Carbon Dioxide Anion Gap BUN Creatinine Creat Clearance w eGFR POC Glucometer 154 106 133 Random Glucose Calcium Total Bilirubin AST ALT Alkaline Phosphatase Total Protein Albumin Urine Color Urine Appearance Urine pH Ur Specific Dexter Urine Protein Urine Glucose (UA) Urine Ketones Urine Blood Urine Nitrite Urine Bilirubin Urine Urobilinogen Ur Leukocyte Esterase Urine WBC (Auto) Urine RBC (Auto) Ur Epithelial Cells Urine Crystals Urine Bacteria Urine Casts C.trachomatis Ampl DNA N. gonorrhoeae (CONNOR) 05/11/17 05/12/17 05/12/17 17:03 06:21 17:32 WBC RBC Hgb Hct MCV MCH MCHC RDW Plt Count MPV Neutrophils % Lymphocytes % Monocytes % Eosinophils % Basophils % Sodium Potassium Chloride Carbon Dioxide Anion Gap BUN Creatinine Creat Clearance w eGFR POC Glucometer 92 113 94 Random Glucose Calcium Total Bilirubin AST ALT Alkaline Phosphatase Total Protein Albumin Urine Color Urine Appearance Urine pH Ur Specific Dexter Urine Protein Urine Glucose (UA) Urine Ketones Urine Blood Urine Nitrite Urine Bilirubin Urine Urobilinogen Ur Leukocyte Esterase Urine WBC (Auto) Urine RBC (Auto) Ur Epithelial Cells Urine Crystals Urine Bacteria Urine Casts C.trachomatis Ampl DNA N. gonorrhoeae (CONNOR) 05/12/17 05/13/17 05/13/17 21:50 06:28 17:11 WBC RBC Hgb Hct MCV MCH MCHC RDW Plt Count MPV Neutrophils % Lymphocytes % Monocytes % Eosinophils % Basophils % Sodium Potassium Chloride Carbon Dioxide Anion Gap BUN Creatinine Creat Clearance w eGFR POC Glucometer 136 136 Random Glucose Calcium Total Bilirubin AST ALT Alkaline Phosphatase Total Protein Albumin Urine Color Urine Appearance Urine pH Ur Specific Dexter Urine Protein Urine Glucose (UA) Urine Ketones Urine Blood Urine Nitrite Urine Bilirubin Urine Urobilinogen Ur Leukocyte Esterase Urine WBC (Auto) Urine RBC (Auto) Ur Epithelial Cells Urine Crystals Urine Bacteria Urine Casts C.trachomatis Ampl DNA Negative N. gonorrhoeae (CONNOR) Negative 05/14/17 05/14/17 05/14/17 06:30 07:48 07:48 WBC 7.0 RBC 3.62 Hgb 11.3 Hct 34.5 MCV 95.5 MCH 31.3 MCHC 32.8 RDW 14.4 Plt Count 320 MPV 8.5 Neutrophils % 38.7 L Lymphocytes % 37.7 Monocytes % 13.4 H Eosinophils % 8.3 H Basophils % 1.9 Sodium 139 Potassium 4.5 Chloride 106 Carbon Dioxide 25 Anion Gap 8 BUN 18 Creatinine 0.8 Creat Clearance w eGFR > 60 POC Glucometer 125 Random Glucose 142 H Calcium 9.4 Total Bilirubin 0.1 L D AST 50 H D ALT 62 D Alkaline Phosphatase 129 H Total Protein 8.1 Albumin 3.6 Urine Color Urine Appearance Urine pH Ur Specific Dexter Urine Protein Urine Glucose (UA) Urine Ketones Urine Blood Urine Nitrite Urine Bilirubin Urine Urobilinogen Ur Leukocyte Esterase Urine WBC (Auto) Urine RBC (Auto) Ur Epithelial Cells Urine Crystals Urine Bacteria Urine Casts C.trachomatis Ampl DNA N. gonorrhoeae (CONNOR) 05/14/17 05/15/17 05/15/17 17:20 06:05 13:20 WBC RBC Hgb Hct MCV MCH MCHC RDW Plt Count MPV Neutrophils % Lymphocytes % Monocytes % Eosinophils % Basophils % Sodium Potassium Chloride Carbon Dioxide Anion Gap BUN Creatinine Creat Clearance w eGFR POC Glucometer 97 120 Random Glucose Calcium Total Bilirubin AST ALT Alkaline Phosphatase Total Protein Albumin Urine Color Yellow Urine Appearance Clear Urine pH 6.0 Ur Specific Dexter 1.023 Urine Protein Negative Urine Glucose (UA) Negative Urine Ketones Negative Urine Blood Negative Urine Nitrite Negative Urine Bilirubin Negative Urine Urobilinogen Negative Ur Leukocyte Esterase 1+ H D Urine WBC (Auto) 2 Urine RBC (Auto) 6 Ur Epithelial Cells Rare Urine Crystals Rare Urine Bacteria Rare Urine Casts 1 C.trachomatis Ampl DNA N. gonorrhoeae (CONNOR) 05/15/17 05/16/17 05/16/17 17:08 06:11 16:48 WBC RBC Hgb Hct MCV MCH MCHC RDW Plt Count MPV Neutrophils % Lymphocytes % Monocytes % Eosinophils % Basophils % Sodium Potassium Chloride Carbon Dioxide Anion Gap BUN Creatinine Creat Clearance w eGFR POC Glucometer 93 90 130 Random Glucose Calcium Total Bilirubin AST ALT Alkaline Phosphatase Total Protein Albumin Urine Color Urine Appearance Urine pH Ur Specific Dexter Urine Protein Urine Glucose (UA) Urine Ketones Urine Blood Urine Nitrite Urine Bilirubin Urine Urobilinogen Ur Leukocyte Esterase Urine WBC (Auto) Urine RBC (Auto) Ur Epithelial Cells Urine Crystals Urine Bacteria Urine Casts C.trachomatis Ampl DNA N. gonorrhoeae (CONNOR) 05/17/17 05/17/17 05/18/17 06:01 17:15 06:03 WBC RBC Hgb Hct MCV MCH MCHC RDW Plt Count MPV Neutrophils % Lymphocytes % Monocytes % Eosinophils % Basophils % Sodium Potassium Chloride Carbon Dioxide Anion Gap BUN Creatinine Creat Clearance w eGFR POC Glucometer 116 95 94 Random Glucose Calcium Total Bilirubin AST ALT Alkaline Phosphatase Total Protein Albumin Urine Color Urine Appearance Urine pH Ur Specific Dexter Urine Protein Urine Glucose (UA) Urine Ketones Urine Blood Urine Nitrite Urine Bilirubin Urine Urobilinogen Ur Leukocyte Esterase Urine WBC (Auto) Urine RBC (Auto) Ur Epithelial Cells Urine Crystals Urine Bacteria Urine Casts C.trachomatis Ampl DNA N. gonorrhoeae (CONNOR) 05/18/17 05/19/17 05/19/17 17:13 06:23 17:07 WBC RBC Hgb Hct MCV MCH MCHC RDW Plt Count MPV Neutrophils % Lymphocytes % Monocytes % Eosinophils % Basophils % Sodium Potassium Chloride Carbon Dioxide Anion Gap BUN Creatinine Creat Clearance w eGFR POC Glucometer 94 97 97 Random Glucose Calcium Total Bilirubin AST ALT Alkaline Phosphatase Total Protein Albumin Urine Color Urine Appearance Urine pH Ur Specific Dexter Urine Protein Urine Glucose (UA) Urine Ketones Urine Blood Urine Nitrite Urine Bilirubin Urine Urobilinogen Ur Leukocyte Esterase Urine WBC (Auto) Urine RBC (Auto) Ur Epithelial Cells Urine Crystals Urine Bacteria Urine Casts C.trachomatis Ampl DNA N. gonorrhoeae (CONNOR) 05/20/17 05/20/17 05/21/17 06:13 16:40 06:25 WBC RBC Hgb Hct MCV MCH MCHC RDW Plt Count MPV Neutrophils % Lymphocytes % Monocytes % Eosinophils % Basophils % Sodium Potassium Chloride Carbon Dioxide Anion Gap BUN Creatinine Creat Clearance w eGFR POC Glucometer 93 89 106 Random Glucose Calcium Total Bilirubin AST ALT Alkaline Phosphatase Total Protein Albumin Urine Color Urine Appearance Urine pH Ur Specific Dexter Urine Protein Urine Glucose (UA) Urine Ketones Urine Blood Urine Nitrite Urine Bilirubin Urine Urobilinogen Ur Leukocyte Esterase Urine WBC (Auto) Urine RBC (Auto) Ur Epithelial Cells Urine Crystals Urine Bacteria Urine Casts C.trachomatis Ampl DNA N. gonorrhoeae (CONNOR) 05/21/17 05/22/17 05/22/17 17:05 06:25 17:13 WBC RBC Hgb Hct MCV MCH MCHC RDW Plt Count MPV Neutrophils % Lymphocytes % Monocytes % Eosinophils % Basophils % Sodium Potassium Chloride Carbon Dioxide Anion Gap BUN Creatinine Creat Clearance w eGFR POC Glucometer 98 99 235 Random Glucose Calcium Total Bilirubin AST ALT Alkaline Phosphatase Total Protein Albumin Urine Color Urine Appearance Urine pH Ur Specific Dexter Urine Protein Urine Glucose (UA) Urine Ketones Urine Blood Urine Nitrite Urine Bilirubin Urine Urobilinogen Ur Leukocyte Esterase Urine WBC (Auto) Urine RBC (Auto) Ur Epithelial Cells Urine Crystals Urine Bacteria Urine Casts C.trachomatis Ampl DNA N. gonorrhoeae (CONNOR) 05/22/17 05/23/17 05/23/17 17:14 06:19 17:06 WBC RBC Hgb Hct MCV MCH MCHC RDW Plt Count MPV Neutrophils % Lymphocytes % Monocytes % Eosinophils % Basophils % Sodium Potassium Chloride Carbon Dioxide Anion Gap BUN Creatinine Creat Clearance w eGFR POC Glucometer 199 88 96 Random Glucose Calcium Total Bilirubin AST ALT Alkaline Phosphatase Total Protein Albumin Urine Color Urine Appearance Urine pH Ur Specific Dexter Urine Protein Urine Glucose (UA) Urine Ketones Urine Blood Urine Nitrite Urine Bilirubin Urine Urobilinogen Ur Leukocyte Esterase Urine WBC (Auto) Urine RBC (Auto) Ur Epithelial Cells Urine Crystals Urine Bacteria Urine Casts C.trachomatis Ampl DNA N. gonorrhoeae (CONNOR) 05/24/17 05/24/17 05/25/17 06:57 17:07 06:28 WBC RBC Hgb Hct MCV MCH MCHC RDW Plt Count MPV Neutrophils % Lymphocytes % Monocytes % Eosinophils % Basophils % Sodium Potassium Chloride Carbon Dioxide Anion Gap BUN Creatinine Creat Clearance w eGFR POC Glucometer 109 92 110 Random Glucose Calcium Total Bilirubin AST ALT Alkaline Phosphatase Total Protein Albumin Urine Color Urine Appearance Urine pH Ur Specific Dexter Urine Protein Urine Glucose (UA) Urine Ketones Urine Blood Urine Nitrite Urine Bilirubin Urine Urobilinogen Ur Leukocyte Esterase Urine WBC (Auto) Urine RBC (Auto) Ur Epithelial Cells Urine Crystals Urine Bacteria Urine Casts C.trachomatis Ampl DNA N. gonorrhoeae (CONNOR) 05/25/17 05/26/17 05/26/17 16:31 06:21 17:20 WBC RBC Hgb Hct MCV MCH MCHC RDW Plt Count MPV Neutrophils % Lymphocytes % Monocytes % Eosinophils % Basophils % Sodium Potassium Chloride Carbon Dioxide Anion Gap BUN Creatinine Creat Clearance w eGFR POC Glucometer 110 99 118 Random Glucose Calcium Total Bilirubin AST ALT Alkaline Phosphatase Total Protein Albumin Urine Color Urine Appearance Urine pH Ur Specific Dexter Urine Protein Urine Glucose (UA) Urine Ketones Urine Blood Urine Nitrite Urine Bilirubin Urine Urobilinogen Ur Leukocyte Esterase Urine WBC (Auto) Urine RBC (Auto) Ur Epithelial Cells Urine Crystals Urine Bacteria Urine Casts C.trachomatis Ampl DNA N. gonorrhoeae (CONNOR) 05/27/17 05/27/17 05/28/17 06:18 17:00 06:19 WBC RBC Hgb Hct MCV MCH MCHC RDW Plt Count MPV Neutrophils % Lymphocytes % Monocytes % Eosinophils % Basophils % Sodium Potassium Chloride Carbon Dioxide Anion Gap BUN Creatinine Creat Clearance w eGFR POC Glucometer 109 122 109 Random Glucose Calcium Total Bilirubin AST ALT Alkaline Phosphatase Total Protein Albumin Urine Color Urine Appearance Urine pH Ur Specific Dexter Urine Protein Urine Glucose (UA) Urine Ketones Urine Blood Urine Nitrite Urine Bilirubin Urine Urobilinogen Ur Leukocyte Esterase Urine WBC (Auto) Urine RBC (Auto) Ur Epithelial Cells Urine Crystals Urine Bacteria Urine Casts C.trachomatis Ampl DNA N. gonorrhoeae (CONNOR) labs drawn including cariac enzymes, pending Assessment: 05/28/17 09:50 essential hypertension, numness and tingling left arm increase norvasc to 10mg daily, startneurontin 3x/day. she has only been having it at night 800mg. check labs, d/w patient and nurse who agreewith plan.
[2017-05-28] MEDS: LOSARTAN POTASSIUM 50 MG TABLET (FP) PO SCH ×2 (10:05→21:29)
[2017-05-28] MEDS: PATIENT'S OWN MEDICATION (NON-FORMULARY) (Omeprazole [Omeprazole] 40 MG) PO SCH (10:06)
[2017-05-28] MEDS: NICOTINE 21 MG/24 HOURS TOPICAL PATCH TD SCH (10:06)
[2017-05-28] MEDS: amLODIPine BESYLATE 10 MG TABLET (FP) PO SCH (10:06)
[2017-05-28] MEDS: HYDROCORTISONE 1% TOPICAL CREAM 30 GM TUBE TP SCH ×2 (10:06→21:30)
[2017-05-28] MEDS: FLUTICASONE PROP 0.05% 16 GM NASAL SPRAY NS SCH ×2 (10:06→21:30)
[2017-05-28] MEDS: ABACAVIR/DOLUTEGRAVIR/LAMIVUDI (TRIUMEQ) TABLET -NF PO SCH (10:07)
[2017-05-28] MEDS: PRENATAL VITAMINS W/ FOLIC ACID TABLET (FP) PO SCH (10:07)
[2017-05-28] MEDS ORDERED: PT OWN MED DRAWER 7, Y5N ONE ×2 (10:08→12:06)
--- NOTE | 2017-05-28 11:29 | PN ---
Psychiatric Progress Note Vital Signs: Vital Signs Period Temp Pulse Resp BP Sys/Laws Pulse Ox Last 24 Hr 97.9 F-97.9 F 84-99 16-18 110-173/72-105 Date of Session: 05/28/17 Chief Complaint:: Progress update HPI: Patient addressed Cocaine dependence comorbid with Substance induced mood disorder. ROS: Significant for HIV+,Polyneuropathy,H/O Cervical cancer,DM. Current Medications: Active Medications Generic Name Dose Route Start Last Admin Trade Name Freq PRN Reason Stop Dose Admin Abacavir/Dolutegravir/Lamivudine 1 each 05/06/17 10:00 05/28/17 10:07 Triumeq (Non-Formulary) PO 1 each DAILY JOSE L Administration Acetaminophen 650 mg 05/05/17 15:09 05/21/17 08:41 Tylenol - PO 650 mg Q4H PRN Administration FEVER OR PAIN Al Hydroxide/Mg Hydroxide 30 ml 05/05/17 15:09 05/23/17 13:37 Mylanta Oral Suspension - PO 30 ml Q6H PRN Administration DYSPEPSIA Albuterol Sulfate 2 puff 05/05/17 15:12 Ventolin Hfa Inhaler - IH Q4H PRN ASTHMA Amlodipine Besylate 10 mg 05/28/17 10:00 05/28/17 10:06 Norvasc - PO Not Given DAILY JOSE L Atorvastatin Calcium 20 mg 05/05/17 22:00 05/27/17 21:35 Lipitor - PO 20 mg HS JOSE L Administration Colloidal Oatmeal 1 applic 05/06/17 11:38 05/19/17 21:40 Aveeno Soap - TP 1 applic DAILY PRN Administration HYGEINE Diphenhydramine HCl 100 mg 05/26/17 22:00 05/27/17 21:36 Benadryl - PO 100 mg HS PRN Administration INSOMNIA Docusate Sodium 300 mg 05/06/17 22:00 05/27/17 21:36 Colace - PO Not Given HS JOSE L Escitalopram Oxalate 10 mg 05/08/17 07:00 05/28/17 06:20 Lexapro - PO 10 mg AM JOSE L Administration Eucalyptus/Menthol/Phenol/Sorbitol 1 each 05/05/17 15:09 Cepastat Lozenge - MM Q4H PRN SORE THROAT Fluticasone Propionate 1 spray 05/05/17 22:00 05/28/17 10:06 Flonase - NS Not Given BID JOSE L Gabapentin 800 mg 05/06/17 22:00 05/27/17 21:34 Neurontin - PO 800 mg HS JOSE L Administration Gabapentin 400 mg 05/28/17 14:00 Neurontin - PO BID@0600,1400 JOSE L Guaifenesin 10 ml 05/05/17 15:09 05/27/17 21:37 Robitussin Dm - PO 10 ml Q6H PRN Administration COUGH Hydrocortisone 1 applic 05/05/17 22:00 05/28/17 10:06 Hytone 1% Cream - TP Not Given BID JOSE L Hydrocortisone Acetate 25 mg 05/13/17 22:00 05/27/17 21:36 Anusol Hc Suppository - RC Not Given HS JOSE L Hydroxyzine Pamoate 25 mg 05/26/17 18:30 Vistaril - PO Q4H PRN AGITATION Lactic Acid 1 applic 05/05/17 15:12 05/11/17 09:52 Lac-Hydrin 12 TP 1 applic PRN PRN Administration DRY SKIN Loperamide HCl 4 mg 05/05/17 15:09 Imodium - PO Q6H PRN DIARRHEA Losartan Potassium 50 mg 05/19/17 10:00 05/28/17 10:05 Cozaar - PO 50 mg BID JOSE L Administration Magnesium Citrate 300 ml 05/05/17 15:09 Citroma - PO Q48H PRN CONSTIPATION Magnesium Hydroxide 30 ml 05/05/17 15:09 Milk Of Magnesia - PO DAILY PRN CONSTIPATION Metformin HCl 750 mg 05/06/17 07:00 05/28/17 06:20 Glucophage Xr - PO 750 mg DAILY@0700,1630 JOSE L Administration Nicotine 21 mg 05/05/17 16:00 05/28/17 10:06 Nicoderm Patch - TD Not Given DAILY [facility] Non-Formulary Medication 40 mg 05/06/17 10:00 05/28/17 10:06 Omeprazole [Omeprazole] PO 40 mg DAILY JOSE L Administration Multivit/Folic Acid/Iron 1 tab 05/06/17 10:00 05/28/17 10:07 Vitamins (Sjr) - PO 1 tab DAILY JOSE L Administration Pseudoephedrine/Triprolidine 1 combo 05/05/17 15:09 Actifed - PO TID PRN NASAL CONGESTION Thiamine HCl 100 mg 05/05/17 22:00 05/27/17 21:34 Vitamin B1 - PO 100 mg HS JOSE L Administration Vitamin A/Vitamin D 1 applic 05/09/17 18:00 05/28/17 06:20 Vitamin A & D Top Oint - TP Not Given Q6HPO JOSE L Current Side Effect: No Lab tests ordered: No Lab tests reviewed: Yes Provider note:: Chart was revuewed,patient was seen .She identifies areas of difficulties ,focuses on insight gained in treatment including importance of changing attitude and ways she plans to utilize to maintian recovery. Current medications has been discussed as well,patient will continue the same medications as per plan:Lexapro 10 mg po daily and Neurontin 300 mg po bid on outpatient basis after discharge from this program. supportive therapy provided. Total face to face time:: 30 Mental Status Exam - Mental Status Exam Alert and Oriented to: Time, Place, Person Cognitive Function: Grossly Intact Patient Appearance: Well Groomed Mood: Euthymic Affect: Mood Congruent Patient Behavior: Cooperative Speech Pattern: Clear Voice Loudness: Normal Thought Process: Goal Oriented Thought Disorder: Being Controlled Hallucinations: Denies Suicidal Ideation: Denies Homicidal Ideation: Denies Insight/Judgement: Fair Sleep: Fair Appetite: Fair Muscle strength/Tone: Normal Gait/Station: Normal Psychiatric Treatment Plan - Problem List (4) Nicotine dependence Qualifiers: Nicotine product type: cigarettes Substance use status: in withdrawal Qualified Code(s): F17.213 - Nicotine dependence, cigarettes, with withdrawal (6) Cocaine dependence Qualifiers: Substance use status: uncomplicated Qualified Code(s): F14.20 - Cocaine dependence, uncomplicated (7) DM2 (diabetes mellitus, type 2) Qualifiers: Diabetes mellitus complication status: without complication Diabetes mellitus watermelon inspector insulin use: without residential use Qualified Code(s): E11.9 - Type 2 diabetes mellitus without complications
--- NOTE | 2017-05-28 11:48 | EKG ---
Test Reason : Blood Pressure : / mmHG Vent. Rate : 069 BPM Atrial Rate : 069 BPM P-R Int : 162 ms QRS Dur : 076 ms QT Int : 402 ms P-R-T Axes : 062 050 037 degrees QTc Int : 430 ms NORMAL SINUS RHYTHM POSSIBLE LEFT ATRIAL ENLARGEMENT BORDERLINE ECG WHEN COMPARED WITH ECG OF 30-APR-2017 18:23, PREMATURE ATRIAL COMPLEXES ARE NO LONGER PRESENT Confirmed by HERLINDA TOWNSEND, AYE ([id number]) on 05/28/2017 11:48:17 AM Referred By: Confirmed By:AYE PATE MD
[2017-05-28] MEDS: GABAPENTIN 400 MG CAPSULE (FP) PO SCH ×2 (13:31→21:29)
[2017-05-28] MEDS: THIAMINE HCL 100 MG TABLET (FP) PO SCH (21:29)
[2017-05-28] MEDS: ATORVASTATIN CA 20 MG TABLET (FP) PO SCH (21:29)
[2017-05-28] MEDS: DOCUSATE SODIUM 100 MG CAPSULE (FP) PO SCH (21:30)
[2017-05-28] MEDS: HYDROCORTISONE ACETATE 25 MG/SUPP.RECT RC SCH (21:31)
[2017-05-28] MEDS: diphenhydrAMINE HCL 25 MG CAPSULE (FP) PO PRN (21:32)
[2017-05-29] MEDS: VITAMINS A AND D TOPICAL OINTMENT 60 GM TUBE TP SCH ×4 (00:14→17:02)
[2017-05-29] MEDS: ESCITALOPRAM OXALATE 10 MG TABLET (FP) PO SCH (06:28)
[2017-05-29] MEDS: GABAPENTIN 400 MG CAPSULE (FP) PO SCH ×3 (06:29→21:21)
[2017-05-29] MEDS ORDERED: cloNIDine HCL 0.1 MG TABLET PO ONE (06:30)
[2017-05-29] MEDS ORDERED: PT OWN MED DRAWER 7, Y5N ONE (08:38)
[2017-05-29] MEDS: PRENATAL VITAMINS W/ FOLIC ACID TABLET (FP) PO SCH (10:13)
[2017-05-29] MEDS: LOSARTAN POTASSIUM 50 MG TABLET (FP) PO SCH ×2 (10:13→21:21)
[2017-05-29] MEDS: PATIENT'S OWN MEDICATION (NON-FORMULARY) (Omeprazole [Omeprazole] 40 MG) PO SCH (10:13)
[2017-05-29] MEDS: HYDROCORTISONE 1% TOPICAL CREAM 30 GM TUBE TP SCH ×2 (10:14→21:22)
[2017-05-29] MEDS: amLODIPine BESYLATE 10 MG TABLET (FP) PO SCH (10:14)
[2017-05-29] MEDS: NICOTINE 21 MG/24 HOURS TOPICAL PATCH TD SCH (10:14)
[2017-05-29] MEDS: FLUTICASONE PROP 0.05% 16 GM NASAL SPRAY NS SCH ×2 (10:15→21:22)
[2017-05-29] MEDS: ABACAVIR/DOLUTEGRAVIR/LAMIVUDI (TRIUMEQ) TABLET -NF PO SCH ×2 (12:29→12:30)
[2017-05-29] MEDS ORDERED: NAPROXEN 250 MG TABLET (FP) PO PRN (14:55)
[2017-05-29] MEDS ORDERED: BACITRACIN 0.9 GM PACKET TP ONE (14:57)
--- NOTE | 2017-05-29 14:58 | PN ---
[facility] Progress Note (SOAP) Subjective: Nose bleed x 2 this week. Tried ice pack and improve. Swelling of hands in the morning and chronic pain and numbness on both. Objective: 05/29/17 14:53 Laboratory Last Values WBC 7.0 K/mm3 (4.0-10.0) 05/14/17 07:48 RBC 3.62 M/mm3 (3.60-5.2) 05/14/17 07:48 Hgb 11.3 GM/dL (10.7-15.3) 05/14/17 07:48 Hct 34.5 % (32.4-45.2) 05/14/17 07:48 MCV 95.5 fl (80-96) 05/14/17 07:48 MCH 31.3 pg (25.7-33.7) 05/14/17 07:48 MCHC 32.8 g/dl (32.0-36.0) 05/14/17 07:48 RDW 14.4 % (11.6-15.6) 05/14/17 07:48 Plt Count 320 K/MM3 (134-434) 05/14/17 07:48 MPV 8.5 fl (7.5-11.1) 05/14/17 07:48 Neutrophils % 38.7 % (42.8-82.8) L 05/14/17 07:48 Lymphocytes % 37.7 % (8-40) 05/14/17 07:48 Monocytes % 13.4 % (3.8-10.2) H 05/14/17 07:48 Eosinophils % 8.3 % (0-4.5) H 05/14/17 07:48 Basophils % 1.9 % (0-2.0) 05/14/17 07:48 Sodium 139 mmol/L (136-145) 05/14/17 07:48 Potassium 4.5 mmol/L (3.5-5.1) 05/14/17 07:48 Chloride 106 mmol/L (98-107) 05/14/17 07:48 Carbon Dioxide 25 mmol/L (21-32) 05/14/17 07:48 Anion Gap 8 (8-16) 05/14/17 07:48 BUN 18 mg/dL (7-18) 05/14/17 07:48 Creatinine 0.8 mg/dL (0.55-1.02) 05/14/17 07:48 Creat Clearance w eGFR > 60 (>60) 05/14/17 07:48 POC Glucometer 105 UNITS (80-120) 05/29/17 06:27 Random Glucose 142 mg/dL (74-106) H 05/14/17 07:48 Calcium 9.4 mg/dL (8.5-10.1) 05/14/17 07:48 Total Bilirubin 0.1 mg/dL (0.2-1.0) L D 05/14/17 07:48 AST 50 U/L (15-37) H D 05/14/17 07:48 ALT 62 U/L (12-78) D 05/14/17 07:48 Alkaline Phosphatase 129 U/L (45-117) H 05/14/17 07:48 Creatine Kinase 153 IU/L (26-192) 05/28/17 08:00 Creatine Kinase Index 0.7 % (0.0-5.0) 05/28/17 08:00 CK-MB (CK-2) 1.210 ng/mL (0.5-3.6) 05/28/17 08:00 Troponin I < 0.02 ng/ml (0.00-0.05) 05/28/17 08:00 Total Protein 8.1 g/dl (6.4-8.2) 05/14/17 07:48 Albumin 3.6 g/dl (3.4-5.0) 05/14/17 07:48 Urine Color Yellow 05/15/17 13:20 Urine Appearance Clear 05/15/17 13:20 Urine pH 6.0 (5.0-8.0) 05/15/17 13:20 Ur Specific [place] 1.023 (1.001-1.035) 05/15/17 13:20 Urine Protein Negative (NEGATIVE) 05/15/17 13:20 Urine Glucose (UA) Negative (NEGATIVE) 05/15/17 13:20 Urine Ketones Negative (NEGATIVE) 05/15/17 13:20 Urine Blood Negative (NEGATIVE) 05/15/17 13:20 Urine Nitrite Negative (NEGATIVE) 05/15/17 13:20 Urine Bilirubin Negative (NEGATIVE) 05/15/17 13:20 Urine Urobilinogen Negative mg/dL (0.2-1.0) 05/15/17 13:20 Ur Leukocyte Esterase 1+ (NEGATIVE) H D 05/15/17 13:20 Urine WBC (Auto) 2 /hpf (3-5) 05/15/17 13:20 Urine RBC (Auto) 6 /hpf (0-3) 05/15/17 13:20 Ur Epithelial Cells Rare /HPF (FEW) 05/15/17 13:20 Urine Crystals Rare /hpf (NONE SEEN) 05/15/17 13:20 Urine Bacteria Rare /hpf (NONE SEEN) 05/15/17 13:20 Urine Casts 1 /hpf 05/15/17 13:20 C.trachomatis Ampl DNA Negative (Negative) 05/12/17 21:50 N. gonorrhoeae (CONNOR) Negative (Negative) 05/12/17 21:50 Assessment: 05/29/17 14:58 intra nasal abrasion from Flonase intra nasal use OA 05/29/17 18:08 Plan: Continue cold compress Increase fluids Continue to monitor / follow up as needed
[2017-05-29] MEDS: MAG HYDROX/AL HYDROX/SIMETH 30 ML UNIT-DOSE CUP PO PRN (15:40)
[2017-05-29] MEDS: HYDROCORTISONE ACETATE 25 MG/SUPP.RECT RC SCH (21:20)
[2017-05-29] MEDS: ATORVASTATIN CA 20 MG TABLET (FP) PO SCH (21:21)
[2017-05-29] MEDS: THIAMINE HCL 100 MG TABLET (FP) PO SCH (21:21)
[2017-05-29] MEDS: DOCUSATE SODIUM 100 MG CAPSULE (FP) PO SCH (21:21)
[2017-05-29] MEDS: diphenhydrAMINE HCL 25 MG CAPSULE (FP) PO PRN (21:24)
[2017-05-30] MEDS: VITAMINS A AND D TOPICAL OINTMENT 60 GM TUBE TP SCH ×2 (00:13→06:10)
[2017-05-30] MEDS: GABAPENTIN 400 MG CAPSULE (FP) PO SCH (06:10)
[2017-05-30] MEDS: ESCITALOPRAM OXALATE 10 MG TABLET (FP) PO SCH (06:10)
[2017-05-30 07:16] VITALS: TEMP 98.2
[2017-05-30] MEDS ORDERED: PT OWN MED DRAWER 7, Y5N ONE (08:47)
--- NOTE | 2017-05-30 09:01 | PN ---
Psychiatric Progress Note Vital Signs: Vital Signs Period Temp Pulse Resp BP Sys/Laws Pulse Ox Last 24 Hr 98.2 F-98.2 F 89-103 16-18 120-163/72-95 Date of Session: 05/30/17 Chief Complaint:: Discharge visit HPI: Patient addressed alcohol and Cocaine dependence comorbid with Substance induced mood disorder. ROS: Significant for HTN,HIV+,DM,neuropathy,BA,H/O Neck surgery,Carpal tunnel syndrome. Current Medications: Active Medications Generic Name Dose Route Start Last Admin Trade Name Freq PRN Reason Stop Dose Admin Abacavir/Dolutegravir/Lamivudine 1 each 05/29/17 11:45 05/29/17 12:29 Triumeq (Non-Formulary) PO 1 each DAILY JOSE L Administration Acetaminophen 650 mg 05/05/17 15:09 05/21/17 08:41 Tylenol - PO 650 mg Q4H PRN Administration FEVER OR PAIN Al Hydroxide/Mg Hydroxide 30 ml 05/05/17 15:09 05/29/17 15:40 Mylanta Oral Suspension - PO 30 ml Q6H PRN Administration DYSPEPSIA Albuterol Sulfate 2 puff 05/05/17 15:12 Ventolin Hfa Inhaler - IH Q4H PRN ASTHMA Amlodipine Besylate 10 mg 05/28/17 10:00 05/29/17 10:14 Norvasc - PO 10 mg DAILY JOSE L Administration Atorvastatin Calcium 20 mg 05/05/17 22:00 05/29/17 21:21 Lipitor - PO 20 mg HS JOSE L Administration Colloidal Oatmeal 1 applic 05/06/17 11:38 05/19/17 21:40 Aveeno Soap - TP 1 applic DAILY PRN Administration HYGEINE Diphenhydramine HCl 100 mg 05/26/17 22:00 05/29/17 21:24 Benadryl - PO 100 mg HS PRN Administration INSOMNIA Docusate Sodium 300 mg 05/06/17 22:00 05/29/17 21:21 Colace - PO 300 mg HS JOSE L Administration Escitalopram Oxalate 10 mg 05/08/17 07:00 05/30/17 06:10 Lexapro - PO 10 mg AM JOSE L Administration Eucalyptus/Menthol/Phenol/Sorbitol 1 each 05/05/17 15:09 Cepastat Lozenge - MM Q4H PRN SORE THROAT Fluticasone Propionate 1 spray 05/05/17 22:00 05/29/17 21:22 Flonase - NS Not Given BID JOSE L Gabapentin 800 mg 05/06/17 22:00 05/29/17 21:21 Neurontin - PO 800 mg HS JOSE L Administration Gabapentin 400 mg 05/28/17 14:00 05/30/17 06:10 Neurontin - PO 400 mg BID@0600,1400 JOSE L Administration Guaifenesin 10 ml 05/05/17 15:09 05/27/17 21:37 Robitussin Dm - PO 10 ml Q6H PRN Administration COUGH Hydrocortisone 1 applic 05/05/17 22:00 05/29/17 21:22 Hytone 1% Cream - TP Not Given BID [facility] Hydrocortisone Acetate 25 mg 05/13/17 22:00 05/29/17 21:20 Anusol Hc Suppository - RC Not Given HS [facility] Hydroxyzine Pamoate 25 mg 05/26/17 18:30 Vistaril - PO Q4H PRN AGITATION Lactic Acid 1 applic 05/05/17 15:12 05/11/17 09:52 Lac-Hydrin 12 TP 1 applic PRN PRN Administration DRY SKIN Loperamide HCl 4 mg 05/05/17 15:09 Imodium - PO Q6H PRN DIARRHEA Losartan Potassium 50 mg 05/19/17 10:00 05/29/17 21:21 Cozaar - PO 50 mg BID JOSE L Administration Magnesium Citrate 300 ml 05/05/17 15:09 Citroma - PO Q48H PRN CONSTIPATION Magnesium Hydroxide 30 ml 05/05/17 15:09 Milk Of Magnesia - PO DAILY PRN CONSTIPATION Metformin HCl 750 mg 05/06/17 07:00 05/30/17 06:10 Glucophage Xr - PO 750 mg DAILY@0700,1630 JOSE L Administration Naproxen 250 mg 05/29/17 14:55 05/29/17 21:23 Naprosyn - PO 250 mg BID PRN Administration PAIN LEVEL 4 - 6 Nicotine 21 mg 05/05/17 16:00 05/29/17 10:14 Nicoderm Patch - TD Not Given DAILY [facility] Non-Formulary Medication 40 mg 05/06/17 10:00 05/29/17 10:13 Omeprazole [Omeprazole] PO 40 mg DAILY [facility] Administration Multivit/Folic Acid/Iron 1 tab 05/06/17 10:00 05/29/17 10:13 Vitamins (Sjr) - PO 1 tab DAILY JOSE L Administration Pseudoephedrine/Triprolidine 1 combo 05/05/17 15:09 Actifed - PO TID PRN NASAL CONGESTION Thiamine HCl 100 mg 05/05/17 22:00 05/29/17 21:21 Vitamin B1 - PO 100 mg HS JOSE L Administration Vitamin A/Vitamin D 1 applic 05/09/17 18:00 05/30/17 06:10 Vitamin A & D Top Oint - TP Not Given Q6HPO JOSE L Current Side Effect: No Lab tests ordered: No Lab tests reviewed: Yes Provider note:: Patient completed this program today.she has met her treatment goals and will continue to address her issues on outpatient basis at [facility] in [facility].Patient reports finding that current medications: lexapro 10 mg po daily and Neurontin 400 mg po bid help her to cope with anxiety ,mood instability.scripts for 30 days provided. Supportive therapy provided focusing on support,coping skills utilization to maintain recovery. Patient is stable for discharge today. Total face to face time:: 25 Mental Status Exam - Mental Status Exam Alert and Oriented to: Time, Place, Person Cognitive Function: Grossly Intact Patient Appearance: Well Groomed Mood: Hopeful, Euthymic Affect: Appropriate, Euthymic Patient Behavior: Cooperative Speech Pattern: Clear Voice Loudness: Normal Thought Process: Goal Oriented Thought Disorder: Not Present Hallucinations: Denies Suicidal Ideation: Denies Homicidal Ideation: Denies Insight/Judgement: Fair Sleep: Fair Appetite: Fair Muscle strength/Tone: Normal Gait/Station: Normal Psychiatric Treatment Plan - Problem List (4) Nicotine dependence Qualifiers: Nicotine product type: cigarettes Substance use status: in withdrawal Qualified Code(s): F17.213 - Nicotine dependence, cigarettes, with withdrawal (6) Cocaine dependence Qualifiers: Substance use status: uncomplicated Qualified Code(s): F14.20 - Cocaine dependence, uncomplicated (7) DM2 (diabetes mellitus, type 2) Qualifiers: Diabetes mellitus complication status: without complication Diabetes mellitus care home insulin use: without long term care phlebotomist use Qualified Code(s): E11.9 - Type 2 diabetes mellitus without complications
[2017-05-30] MEDS: LOSARTAN POTASSIUM 50 MG TABLET (FP) PO SCH (09:08)
[2017-05-30] MEDS: PATIENT'S OWN MEDICATION (NON-FORMULARY) (Omeprazole [Omeprazole] 40 MG) PO SCH (09:08)
[2017-05-30] MEDS: ABACAVIR/DOLUTEGRAVIR/LAMIVUDI (TRIUMEQ) TABLET -NF PO SCH (09:08)
[2017-05-30] MEDS: amLODIPine BESYLATE 10 MG TABLET (FP) PO SCH (09:09)
[2017-05-30] MEDS: PRENATAL VITAMINS W/ FOLIC ACID TABLET (FP) PO SCH (09:09)
[2017-05-30] MEDS: HYDROCORTISONE 1% TOPICAL CREAM 30 GM TUBE TP SCH (09:11)
[2017-05-30] MEDS: FLUTICASONE PROP 0.05% 16 GM NASAL SPRAY NS SCH (09:11)
[2017-05-30 09:14] VITALS: BP 148/83; PULSE 98
== END 2017-05-30 09:58 | disposition home or self-care (01) | DRG 772 ==
LOC: YASAS 14:18 → Y3E 14:19
PROVIDERS: ADMIT Psychiatry & Neurology Psychiatry; ATTEND Psychiatry & Neurology Psychiatry
PROC: HZ42ZZZ Group Counseling for Substance Abuse Treatment, Cognitive-Behavioral (ICD-10-PCS; principal; 2017-05-05)
DX: F14.20 Cocaine dependence, uncomplicated (principal); F17.210 Nicotine dependence, cigarettes, uncomplicated; F19.24 Other psychoactive substance dependence with psychoactive substance-induced mood disorder; G62.9 Polyneuropathy, unspecified; I10 Essential (primary) hypertension; E11.9 Type 2 diabetes mellitus without complications; Z79.84 Long term (current) use of oral hypoglycemic drugs; Z21 Asymptomatic human immunodeficiency virus [HIV] infection status; R63.4 Abnormal weight loss; Z68.21 Body mass index [BMI] 21.0-21.9, adult; Z85.41 Personal history of malignant neoplasm of cervix uteri; Z98.890 Other specified postprocedural states
CPT/HCPCS: 36415; 71045-TC-FY; 80053; 81003; 81015; 82550; 82553; 82962; 84484; 85025; 87491; 87591; 90670; 90688; 93005; 93010; J0735

== ENCOUNTER 2017-08-20 13:02 | Inpatient (IN) | payer OTHER ==
[2017-08-20 13:49] VITALS: BMI 19.5
--- NOTE | 2017-08-20 15:13 | HP ---
CIWA Score - CIWA Score Nausea/Vomitin Muscle Tremors: 3 Anxiety: 3 Agitation: 3 Paroxysmal Sweats: 2 Orientation: 0-Oriented Tacttile Disturbances: 2-Mild Itch/Numbness/Burn Auditory Disturbances: 2-Mild Harshness/Frighten Visual Disturbances: 0-None Headache: 2-Mild CIWA-Ar Total Score: 20 Admission ROS BHS - HPI Chief Complaint: i need help to stop drinking alcohol,cocaine Allergies/Adverse Reactions: Allergies Allergy/AdvReac Type Severity Reaction Status Date / Time enalapril Allergy Severe Swelling Verified 08/20/17 14:27 erythromycin base AdvReac Severe Nausea Verified 05/05/17 14:45 History of Present Illness: this 62 years old female with alcohol and cocaine dependence,seeking detox, withdrawal symptom,last detox [facility] 04/30/17 to 05/05/17,rehab 12/03/17 to weight loss htn,type 2 dm,hypercholesterolemia, nicotine dependence anxiety,depression,insomnia longest period of sobriety 10 years hiv in 1992 Exam Limitations: No Limitations - Ebola screening Have you traveled outside of the country in the last 21 days: No Have you traveled to any of the following countries: [place] Have you had contact with anyone from an Ebola affected area: No Have you been sick,other than usual withdrawal symptoms: No Do you have a fever: No - Review of Systems Constitutional: Loss of Appetite, Malaise, Night Sweats, Changes in sleep, Weakness, Unintentional Wgt. Loss EENT: reports: Tearing, Nose Congestion Respiratory: reports: No Symptoms reported, Other (history of pulmonary embolism on xeralto 10 mgs po daily) Cardiac: reports: No Symptoms Reported, Irregular Heart Rate, Lightheadedness, Palpitations GI: reports: Diarrhea, Nausea, Vomiting, Abdominal cramping : reports: No Symptoms Reported Integumentary: reports: Dryness Neuro: reports: Headache, Tremors Endocrine: reports: No Symptoms Reported Hematology: reports: No Symptoms Reported, Other (hiv,anemia) Psychiatric: reports: Judgement Intact, Mood/Affect Appropiate, Orientated x3 ( insomnia), Anxious, Depressed Patient History - Patient Medical History Hx Anemia: Yes (on iron) Hx Asthma: Yes (Pt is on MDI) Hx Chronic Obstructive Pulmonary Disease (COPD): No Hx Cancer: No Hx Cardiac Disorders: No Hx Congestive Heart Failure: No Hx Hypertension: Yes (on meds) Hx Hypercholesterolemia: Yes Hx Pacemaker: No HX Cerebrovascular Accident: No Hx Seizures: No Hx Dementia: No Hx Diabetes: Yes (on metformin) Hx Gastrointestinal Disorders: Yes (Hx of acid reflux.) Hx Liver Disease: No Hx Genitourinary Disorders: No Hx Sexually Transmitted Disorders: No Hx Renal Disease (ESRD): No Hx Thyroid Disease: No Hx Human Immunodeficiency Virus (HIV): Yes (since 1992) Hx Hepatitis C: No Hx Depression: Yes (anxiety,insomnia) Hx Suicide Attempt: No Hx Bipolar Disorder: No Hx Schizophrenia: No Other Medical History: no suicidal,no homicidal,history of pulonry embolism - Patient Surgical History Past Surgical History: Yes Hx Neurologic Surgery: Yes (s/p surgery of neck) Hx Cataract Extraction: No Hx Cardiac Surgery: No Hx Lung Surgery: No Hx Breast Surgery: No Hx Breast Biopsy: No Hx Abdominal Surgery: No Hx Appendectomy: No Hx Cholecystectomy: No Hx Genitourinary Surgery: No Hx Section: No Hx Orthopedic Surgery: No Other Surgical History: 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, carpal tunnel right Anesthesia Reaction: No - PPD History Previous Implant?: Yes Documented Results: Positive w/proof Implanted On Prior [facility] Admission?: No - Reproductive History Patient is a Female of Child Bearing Age (11 -55 yrs old): No Last Menstrual Period: 02/24/98 Patient : No - Smoking Cessation Smoking history: Current every day smoker Have you smoked in the past 12 months: Yes Aproximately how many cigarettes per day: 10 Cigars Per Day: 10 Hx Chewing Tobacco Use: No Initiated information on smoking cessation: Yes 'Breaking Loose' booklet given: 08/20/17 - Substance & Tx. History Hx Alcohol Use: Yes Hx Substance Use: Yes Substance Use Type: Alcohol, Cocaine Hx Substance Use Treatment: Yes ([facility] 04/30/17 to 05/05/17 detox,rehab 05/05/17 to 05/30/17) - Substances Abused Alcohol Route: Oral Frequency: Daily Amount used: 4 40oz beers Age of first use: 19 Date of Last Use: 08/20/17 Crack Route: Smoking Frequency: Daily Amount used: $40 and up Age of first use: 19 Date of Last Use: 04/24/18 Family Disease History - Family Disease History Family Disease History: Other: Sister (dsa) Admission Physical Exam BHS - Vital Signs Vital Signs: Vital Signs - 24 hr 08/20/17 13:32 Temperature 97.1 F L Pulse Rate 97 H Respiratory 20 Rate Blood Pressure 116/69 - Physical General Appearance: Yes: Moderate Distress, Tremorous, Irritable, Sweating, Anxious HEENTM: Yes: Normal ENT Inspection, JAGDEEP, Pharynx Normal Respiratory: Yes: Lungs Clear, Normal Breath Sounds, No Respiratory Distress Neck: Yes: Within Normal Limits, Supple, Trachea in good position, Other (scar) Breast: Yes: Breast Exam Deferred Cardiology: Yes: Regular Rhythm, Regular Rate, S1, S2 Abdominal: Yes: Within Normal Limits, Normal Bowel Sounds, Non Tender, Soft Genitourinary: Yes: Within Normal Limits, Other (n cream) Back: Yes: Muscle Spasm Musculoskeletal: Yes: full range of Motion, Back pain, Muscle Pain Extremities: Yes: Within Normal Limits, Tremors Neurological: Yes: egg and spice mixer II-XII NML intact, Fully Oriented, Alert, Motor Strength 5/5 Integumentary: Yes: Dry Lymphatic: Yes: Within Normal Limits - Diagnostic (1) Alcohol dependence with uncomplicated withdrawal Current Visit: No Status: Acute (2) History of carpal tunnel surgery Current Visit: No Status: Acute (3) Weight loss Current Visit: No Status: Acute (4) Asthma Current Visit: No Status: Chronic Qualifiers: Asthma severity: moderate Asthma complication type: uncomplicated (5) Cocaine dependence Current Visit: No Status: Chronic Qualifiers: Substance use status: uncomplicated Qualified Code(s): F14.20 - Cocaine dependence, uncomplicated (6) DM2 (diabetes mellitus, type 2) Current Visit: No Status: Chronic Qualifiers: Diabetes mellitus fpc insulin use: without supervisor long goods use Diabetes mellitus complication status: without complication Qualified Code(s): E11.9 - Type 2 diabetes mellitus without complications (7) Essential (primary) hypertension Current Visit: No Status: Chronic (8) HIV (human immunodeficiency virus infection) Current Visit: No Status: Chronic (9) Neuropathy Current Visit: No Status: Chronic (10) Nicotine dependence Current Visit: No Status: Chronic Qualifiers: Nicotine product type: cigarettes Substance use status: in withdrawal Qualified Code(s): F17.213 - Nicotine dependence, cigarettes, with withdrawal (11) History of carpal tunnel surgery of right wrist Current Visit: No Status: Resolved (12) History of neck surgery Current Visit: No Status: Resolved (13) Vaginal dryness Current Visit: Yes Status: Acute (14) Canker sores oral Current Visit: Yes Status: Acute (15) History of pulmonary embolism Current Visit: Yes Status: Acute (16) Insomnia secondary to depression with anxiety Current Visit: Yes Status: Acute Cleared for Admission [facility] - Detox or Rehab [facility] Level of Care: Medically Managed Detox Regimen/Protocol: Librium [facility] Breath Alcohol Content Breath Alcohol Content: 0.171 Urine Pregancy Test - Result Urine Test Results: Negative- NO Line Present Urine Drug Screen - Results Drug Screen Negative: No Urine Drug Screen Results: BAR-Cocaine
[2017-08-20] MEDS ORDERED: guaiFENesin/D-METHORPHAN HB 10 ML UNIT-DOSE CUPS PO PRN (15:29)
[2017-08-20] MEDS ORDERED: LOPERAMIDE HCL 2 MG CAPSULE PO PRN (15:29)
[2017-08-20] MEDS ORDERED: P-EPHED 60MG/TRIPROLIDI 2.5MG TABLET PO PRN (15:29)
[2017-08-20] MEDS ORDERED: chlordiazePOXIDE HCL 25 MG CAPSULE PO ONE (15:29)
[2017-08-20] MEDS ORDERED: MAG HYDROX/AL HYDROX/SIMETH 30 ML UNIT-DOSE CUP PO PRN (15:29)
[2017-08-20] MEDS ORDERED: MENTHOL/PHENOL 1 EACH UD MM PRN (15:29)
[2017-08-20] MEDS ORDERED: chlordiazePOXIDE HCL 25 MG CAPSULE PO PRN (15:29)
[2017-08-20] MEDS ORDERED: hydrOXYzine PAMOATE 25 MG CAPSULE (FP) PO PRN (15:29)
[2017-08-20] MEDS ORDERED: MAGNESIUM CITRATE 300 ML BOTTLE PO PRN (15:29)
[2017-08-20] MEDS ORDERED: IBUPROFEN 400 MG TABLET (FP) PO PRN (15:29)
[2017-08-20] MEDS ORDERED: MAGNESIUM HYDROX 2400MG/30ML ORAL SUSPENSION 30 ML CUP PO PRN (15:29)
[2017-08-20] MEDS ORDERED: NICOTINE POLACRILEX 2 MG GUM BC PRN (15:29)
[2017-08-20] MEDS ORDERED: ALBUTEROL SO4 18 GM HFA INHALER IH PRN (15:39)
[2017-08-20] MEDS: chlordiazePOXIDE HCL 25 MG CAPSULE PO SCH ×2 (17:24→22:34)
[2017-08-20] MEDS: NICOTINE 21 MG/24 HOURS TOPICAL PATCH TD SCH (17:30)
[2017-08-20 21:54] LABS: URINE APPEARANCE CLEAR; URINE BILIRUBIN NEGATIVE (<2.0 mg/dL); URINE BLOOD NEGATIVE (NEGATIVE); URINE COLOR STRAW; URINE GLUCOSE (UA) NEGATIVE (NEGATIVE); URINE KETONE NEGATIVE (NEGATIVE); URINE LEUK ESTERASE NEGATIVE (NEGATIVE); URINE NITRITE NEGATIVE (NEGATIVE); URINE PROTEIN NEGATIVE (NEGATIVE); URINE UROBILINOGEN NEGATIVE mg/dL (0.2-1.0)
[2017-08-20] MEDS ORDERED: MELATONIN 5 MG TABLETS PO PRN (22:00)
[2017-08-20] MEDS: ABREVA TP SCH (22:33)
[2017-08-20] MEDS: THIAMINE HCL 100 MG TABLET (FP) PO SCH (22:34)
[2017-08-20] MEDS: ATORVASTATIN CA 20 MG TABLET (FP) PO SCH (22:34)
[2017-08-20] MEDS: ACETAMINOPHEN 325 MG TABLET (FP) PO PRN (22:34)
[2017-08-20] MEDS: RANITIDINE HCL 150 MG TABLET (FP) PO SCH (22:34)
[2017-08-21] MEDS: chlordiazePOXIDE HCL 25 MG CAPSULE PO SCH ×4 (06:00→22:38)
[2017-08-21] MEDS: ACETAMINOPHEN 325 MG TABLET (FP) PO PRN ×2 (06:46→17:04)
[2017-08-21] MEDS: FERROUS SO4 325 MG TABLET (FP) PO SCH (08:00)
--- NOTE | 2017-08-21 08:34 | CONSULT ---
[facility] Psychiatric Consult - Data Date of interview: 08/21/17 Admission source: [facility] Identifying data: This is 62 years old female, single mother of three, living alone, on SSI, with no psychiatric hospitalization history, with history of alcohol and cocaine dependence,seeking detox,reports withdrawal symptoms, Substance Abuse History: - Smoking Cessation. Smoking history: Current every day smoker. Have you smoked in the past 12 months: Yes. Aproximately how many cigarettes per day: 10. Cigars Per Day: 10. Hx Chewing Tobacco Use: No. Initiated information on smoking cessation: Yes. 'Breaking Loose' booklet given : 08/20/17. - Substance & Tx. History. Hx Alcohol Use: Yes. Hx Substance Use : Yes. Substance Use Type: Alcohol, Cocaine. Hx Substance Use Treatment: Yes ( [facility] 04/30/17 to 05/05/17 detox,rehab 05/05/17 to 05/30/17). - Substances Abused. Alcohol. Route: Oral. Frequency: Daily. Amount used: 4 40oz beers. Age of first use: 19. Date of Last Use: 08/20/17. Crack. Route: Smoking. Frequency: Daily. Amount used: $40 and up. Age of first use: 19. Date of Last Use: 08/19/17 Medical History: Weight loss, aSTHMA, history of PE, , HIV+ history, HTN, type 2 DM, hypercholesterolemia, Psychiatric History: Patient reports history of depression, reports taking prior to admission: Lexapro 20mg poqd, willing to ciontinue Lexapro. Physical/Sexual Abuse/Trauma History: Denies Additional Comment: Lexapro 20mg poqd, Mental Status Exam - Mental Status Exam Alert and Oriented to: Person Cognitive Function: Fair Mood: Sad Affect: Flat Patient Behavior: Sedated Speech Pattern: Appropriate Voice Loudness: Mildly Soft/Quiet Thought Process: Goal Oriented Thought Disorder: Being Controlled Hallucinations: Denies Suicidal Ideation: Denies Homicidal Ideation: Denies Insight/Judgement: Fair Sleep: Difficulty falling asleep Appetite: Weight loss Muscle strength/Tone: Mild Hypotonicity Gait/Station: Shuffling Additional Comments: Lexapro 20mg poqd, Psychiatric Findings - Problem List ([place] 1, 2,3) (1) Alcohol dependence with uncomplicated withdrawal Current Visit: No Status: Acute (2) Cocaine dependence Current Visit: No Status: Chronic Qualifiers: Substance use status: uncomplicated Qualified Code(s): F14.20 - Cocaine dependence, uncomplicated (3) Drug-induced mood disorder Current Visit: No Status: Chronic (4) MDD (major depressive disorder) Current Visit: No Status: Chronic Comment: As per self-report.On lexapro and currently in OPD care at [facility] in the [place]. (5) Nicotine dependence Current Visit: No Status: Chronic Qualifiers: Nicotine product type: cigarettes Substance use status: in withdrawal Qualified Code(s): F17.213 - Nicotine dependence, cigarettes, with withdrawal - Initial Treatment Plan Initial Treatment Plan: Lexapro 20mg poqd,
[2017-08-21 10:22] LABS: HEMATOCRIT 29.9 % (32.4-45.2); MCH 30.1 pg (25.7-33.7); MCHC 33.4 g/dl (32.0-36.0); MEAN CELL VOLUME 90.2 fl (80-96); MEAN PLT VOLUME 7.9 fl (7.5-11.1); PLATELET COUNT 468 K/MM3 (134-434); RBC 3.31 M/mm3 (3.60-5.2); RDW 15.9 % (11.6-15.6)
[2017-08-21 10:45] LABS: ALBUMIN 3.9 g/dl (3.4-5.0); ANION GAP 8 (8-16); BILIRUBIN,TOTAL 0.2 mg/dL (0.2-1.0); BLOOD UREA NITROGEN 7 mg/dL (7-18); CALCIUM 9.1 mg/dL (8.5-10.1); CHLORIDE 101 mmol/L (98-107); CO2 25 mmol/L (21-32); CREATININE 0.9 mg/dL (0.55-1.02); GLUCOSE,RANDOM 199 mg/dL (74-106); POTASSIUM 3.5 mmol/L (3.5-5.1); SODIUM 134 mmol/L (136-145)
[2017-08-21 10:48] LABS: ALK PHOS 80 U/L (45-117); SGOT/AST 33 U/L (15-37); SGPT/ALT 17 U/L (12-78); TOT PROT 8.8 g/dl (6.4-8.2)
[2017-08-21] MEDS: LOSARTAN POTASSIUM 50 MG TABLET (FP) PO SCH (11:08)
[2017-08-21] MEDS: ABREVA TP SCH ×2 (11:08→23:07)
[2017-08-21] MEDS: NICOTINE 21 MG/24 HOURS TOPICAL PATCH TD SCH (11:09)
[2017-08-21] MEDS: ABACAVIR/DOLUTEGRAVIR/LAMIVUDI (TRIUMEQ) TABLET -NF PO SCH (11:09)
[2017-08-21] MEDS: ESCITALOPRAM OXALATE 20 MG TABLET (FP) PO SCH (11:09)
[2017-08-21] MEDS: RANITIDINE HCL 150 MG TABLET (FP) PO SCH ×2 (11:09→22:38)
[2017-08-21] MEDS: PRENATAL VITAMINS W/ FOLIC ACID TABLET (FP) PO SCH (11:10)
[2017-08-21] MEDS: FENOFIBRIC ACID 135 MG CAP PO SCH (11:10)
[2017-08-21] MEDS: RIVAROXABAN 10 MG TABLET PO SCH (11:10)
[2017-08-21] MEDS: amLODIPine BESYLATE 10 MG TABLET (FP) PO SCH (11:11)
[2017-08-21] MEDS: ESTROGENS,CONJUGATE VAGINAL CR 30 GM TUBE VG SCH (11:11)
--- NOTE | 2017-08-21 11:45 | PN ---
S CIWA - CIWA Score Nausea/Vomitin-Mild Nausea/No Vomiting Muscle Tremors: 4-Moderate,w/Arms Extend Anxiety: 4-Mod. Anxious/Guarded Agitation: 4-Moderately Restless Paroxysmal Sweats: 1-Minimal Palms Moist Orientation: 0-Oriented Tacttile Disturbances: 1-Very Mild Itch/Numbness Auditory Disturbances: 0-None Visual Disturbances: 0-None Headache: 1-Very Mild CIWA-Ar Total Score: 16 BHS Progress Note (SOAP) Subjective: sweat tremor hot and cold anxiety restlessness trouble sleep at night Objective: 08/21/17 11:46 Vital Signs Temperature 99.7 F H 08/21/17 10:25 Pulse Rate 82 08/21/17 11:30 Respiratory Rate 16 08/21/17 10:25 Blood Pressure 125/76 08/21/17 10:25 O2 Sat by Pulse Oximetry (%) Laboratory Last Values WBC 6.0 K/mm3 (4.0-10.0) 08/21/17 05:50 RBC 3.31 M/mm3 (3.60-5.2) L 08/21/17 05:50 Hgb 10.0 GM/dL (10.7-15.3) L D 08/21/17 05:50 Hct 29.9 % (32.4-45.2) L 08/21/17 05:50 MCV 90.2 fl (80-96) 08/21/17 05:50 MCH 30.1 pg (25.7-33.7) 08/21/17 05:50 MCHC 33.4 g/dl (32.0-36.0) 08/21/17 05:50 RDW 15.9 % (11.6-15.6) H D 08/21/17 05:50 Plt Count 468 K/MM3 (134-434) H D 08/21/17 05:50 MPV 7.9 fl (7.5-11.1) 08/21/17 05:50 Sodium 134 mmol/L (136-145) L 08/21/17 05:50 Potassium 3.5 mmol/L (3.5-5.1) 08/21/17 05:50 Chloride 101 mmol/L (98-107) 08/21/17 05:50 Carbon Dioxide 25 mmol/L (21-32) 08/21/17 05:50 Anion Gap 8 (8-16) 08/21/17 05:50 BUN 7 mg/dL (7-18) 08/21/17 05:50 Creatinine 0.9 mg/dL (0.55-1.02) 08/21/17 05:50 Creat Clearance w eGFR > 60 (>60) 08/21/17 05:50 POC Glucometer 165 UNITS (80-120) 08/21/17 06:32 Random Glucose 199 mg/dL (74-106) H 08/21/17 05:50 Calcium 9.1 mg/dL (8.5-10.1) 08/21/17 05:50 Total Bilirubin 0.2 mg/dL (0.2-1.0) D 08/21/17 05:50 AST 33 U/L (15-37) 08/21/17 05:50 ALT 17 U/L (12-78) 08/21/17 05:50 Alkaline Phosphatase 80 U/L (45-117) 08/21/17 05:50 Total Protein 8.8 g/dl (6.4-8.2) H 08/21/17 05:50 Albumin 3.9 g/dl (3.4-5.0) 08/21/17 05:50 Urine Color Straw 08/20/17 21:11 Urine Appearance Clear 08/20/17 21:11 Urine pH 5.0 (5.0-8.0) 08/20/17 21:11 Ur Specific [place] 1.004 (1.001-1.035) 08/20/17 21:11 Urine Protein Negative (NEGATIVE) 08/20/17 21:11 Urine Glucose (UA) Negative (NEGATIVE) 08/20/17 21:11 Urine Ketones Negative (NEGATIVE) 08/20/17 21:11 Urine Blood Negative (NEGATIVE) 08/20/17 21:11 Urine Nitrite Negative (NEGATIVE) 08/20/17 21:11 Urine Bilirubin Negative (<2.0 mg/dL) 08/20/17 21:11 Urine Urobilinogen Negative mg/dL (0.2-1.0) 08/20/17 21:11 Ur Leukocyte Esterase Negative (NEGATIVE) 08/20/17 21:11 RPR Titer Nonreactive (NONREACTIVE) 08/21/17 05:50 lab noted Assessment: 08/21/17 11:47 withdrawal sx Plan: continue detox
--- NOTE | 2017-08-21 13:00 | EKG ---
Test Reason : Blood Pressure : / mmHG Vent. Rate : 085 BPM Atrial Rate : 085 BPM P-R Int : 156 ms QRS Dur : 088 ms QT Int : 372 ms P-R-T Axes : 066 065 062 degrees QTc Int : 442 ms NORMAL SINUS RHYTHM SEPTAL INFARCT , AGE UNDETERMINED ABNORMAL ECG WHEN COMPARED WITH ECG OF 28-MAY-2017 07:03, NO SIGNIFICANT CHANGE WAS FOUND Confirmed by PATRICK MCKENZIE MD ([id number]) on 08/21/2017 1:00:12 PM Referred By: Confirmed By:PATRICK MCKNEZIE MD
[2017-08-21] MEDS: THIAMINE HCL 100 MG TABLET (FP) PO SCH (22:38)
[2017-08-21] MEDS: ATORVASTATIN CA 20 MG TABLET (FP) PO SCH (22:38)
[2017-08-22] MEDS: chlordiazePOXIDE HCL 25 MG CAPSULE PO SCH ×2 (05:31→10:24)
[2017-08-22] MEDS: FERROUS SO4 325 MG TABLET (FP) PO SCH ×3 (07:15→17:54)
--- NOTE | 2017-08-22 10:18 | PN ---
S CIWA - CIWA Score Nausea/Vomitin Muscle Tremors: 3 Anxiety: 3 Agitation: 1-Slight > Activity Paroxysmal Sweats: 1-Minimal Palms Moist Orientation: 0-Oriented Tacttile Disturbances: 1-Very Mild Itch/Numbness Auditory Disturbances: 0-None Visual Disturbances: 0-None Headache: 1-Very Mild CIWA-Ar Total Score: 13 S Progress Note (SOAP) Subjective: nausea, sweats, interrupted sleep, anxiety, tremors Objective: 08/22/17 10:17 Vital Signs - 8 hr 08/22/17 08/22/17 03:30 06:00 Temperature 98.4 F Pulse Rate 76 Respiratory 18 16 Rate Blood Pressure 114/63 Laboratory Tests 08/20/17 08/20/17 08/21/17 15:57 21:11 05:50 WBC 6.0 RBC 3.31 L Hgb 10.0 L D Hct 29.9 L MCV 90.2 MCH 30.1 MCHC 33.4 RDW 15.9 H D Plt Count 468 H D MPV 7.9 Sodium Potassium Chloride Carbon Dioxide Anion Gap BUN Creatinine Creat Clearance w eGFR POC Glucometer 115 Random Glucose Calcium Total Bilirubin AST ALT Alkaline Phosphatase Total Protein Albumin Urine Color Straw Urine Appearance Clear Urine pH 5.0 Ur Specific [place] 1.004 Urine Protein Negative Urine Glucose (UA) Negative Urine Ketones Negative Urine Blood Negative Urine Nitrite Negative Urine Bilirubin Negative Urine Urobilinogen Negative Ur Leukocyte Esterase Negative RPR Titer 08/21/17 08/21/17 08/21/17 05:50 05:50 06:32 WBC RBC Hgb Hct MCV MCH MCHC RDW Plt Count MPV Sodium 134 L Potassium 3.5 Chloride 101 Carbon Dioxide 25 Anion Gap 8 BUN 7 Creatinine 0.9 Creat Clearance w eGFR > 60 POC Glucometer 165 Random Glucose 199 H Calcium 9.1 Total Bilirubin 0.2 D AST 33 ALT 17 Alkaline Phosphatase 80 Total Protein 8.8 H Albumin 3.9 Urine Color Urine Appearance Urine pH Ur Specific [place] Urine Protein Urine Glucose (UA) Urine Ketones Urine Blood Urine Nitrite Urine Bilirubin Urine Urobilinogen Ur Leukocyte Esterase RPR Titer Nonreactive 08/21/17 08/22/17 16:10 05:30 WBC RBC Hgb Hct MCV MCH MCHC RDW Plt Count MPV Sodium Potassium Chloride Carbon Dioxide Anion Gap BUN Creatinine Creat Clearance w eGFR POC Glucometer 126 143 Random Glucose Calcium Total Bilirubin AST ALT Alkaline Phosphatase Total Protein Albumin Urine Color Urine Appearance Urine pH Ur Specific [place] Urine Protein Urine Glucose (UA) Urine Ketones Urine Blood Urine Nitrite Urine Bilirubin Urine Urobilinogen Ur Leukocyte Esterase RPR Titer anemia Assessment: 08/22/17 10:17 withdrawal sx -= cont detox, anemia, iron supplemets and vitamins ordered, f/u PCP when discharged, fluids, encoruage ambulation, gabapenting fo body aches as requested by eleuterio
[2017-08-22] MEDS: RANITIDINE HCL 150 MG TABLET (FP) PO SCH ×2 (10:23→22:25)
[2017-08-22] MEDS: FENOFIBRIC ACID 135 MG CAP PO SCH (10:23)
[2017-08-22] MEDS: LOSARTAN POTASSIUM 50 MG TABLET (FP) PO SCH (10:24)
[2017-08-22] MEDS: PRENATAL VITAMINS W/ FOLIC ACID TABLET (FP) PO SCH (10:24)
[2017-08-22] MEDS: RIVAROXABAN 10 MG TABLET PO SCH (10:24)
[2017-08-22] MEDS: ESCITALOPRAM OXALATE 20 MG TABLET (FP) PO SCH (10:24)
[2017-08-22] MEDS: amLODIPine BESYLATE 10 MG TABLET (FP) PO SCH (10:24)
[2017-08-22] MEDS: ESTROGENS,CONJUGATE VAGINAL CR 30 GM TUBE VG SCH (10:25)
[2017-08-22] MEDS: ABACAVIR/DOLUTEGRAVIR/LAMIVUDI (TRIUMEQ) TABLET -NF PO SCH (10:25)
[2017-08-22] MEDS: ABREVA TP SCH ×2 (10:25→22:26)
[2017-08-22] MEDS: NICOTINE 21 MG/24 HOURS TOPICAL PATCH TD SCH (10:26)
[2017-08-22] MEDS: GABAPENTIN 100 MG CAPSULE (FP) PO SCH ×2 (13:29→22:25)
[2017-08-22] MEDS: chlordiazePOXIDE 5 MG CAPSULE PO SCH ×2 (17:54→22:25)
[2017-08-22] MEDS: THIAMINE HCL 100 MG TABLET (FP) PO SCH (22:24)
[2017-08-22] MEDS: ATORVASTATIN CA 20 MG TABLET (FP) PO SCH (22:24)
[2017-08-22] MEDS: DOCUSATE SODIUM 100 MG CAPSULE (FP) PO SCH (22:25)
[2017-08-23] MEDS: chlordiazePOXIDE 5 MG CAPSULE PO SCH ×2 (05:45→10:42)
[2017-08-23] MEDS: GABAPENTIN 100 MG CAPSULE (FP) PO SCH ×3 (05:45→22:58)
[2017-08-23] MEDS: FERROUS SO4 325 MG TABLET (FP) PO SCH ×3 (07:30→17:48)
[2017-08-23] MEDS: FENOFIBRIC ACID 135 MG CAP PO SCH (10:41)
[2017-08-23] MEDS: RANITIDINE HCL 150 MG TABLET (FP) PO SCH ×2 (10:41→22:58)
[2017-08-23] MEDS: amLODIPine BESYLATE 10 MG TABLET (FP) PO SCH (10:42)
[2017-08-23] MEDS: RIVAROXABAN 10 MG TABLET PO SCH (10:42)
[2017-08-23] MEDS: PRENATAL VITAMINS W/ FOLIC ACID TABLET (FP) PO SCH (10:42)
[2017-08-23] MEDS: LOSARTAN POTASSIUM 50 MG TABLET (FP) PO SCH (10:42)
[2017-08-23] MEDS: ABREVA TP SCH ×2 (10:43→23:41)
[2017-08-23] MEDS: ESCITALOPRAM OXALATE 20 MG TABLET (FP) PO SCH (10:43)
[2017-08-23] MEDS: ABACAVIR/DOLUTEGRAVIR/LAMIVUDI (TRIUMEQ) TABLET -NF PO SCH (10:43)
[2017-08-23] MEDS: NICOTINE 21 MG/24 HOURS TOPICAL PATCH TD SCH (10:44)
[2017-08-23] MEDS: ESTROGENS,CONJUGATE VAGINAL CR 30 GM TUBE VG SCH (10:44)
[2017-08-23] MEDS ORDERED: COLLOIDAL OATMEAL 1 BAR EACH TP PRN (11:09)
[2017-08-23] MEDS: HYDROCORTISONE 1% TOPICAL CREAM 30 GM TUBE TP SCH ×2 (11:15→22:57)
[2017-08-23] MEDS: AMMONIUM LACTATE 12% LOTION 225 GM BOTTLE TP SCH ×2 (11:51→22:58)
--- NOTE | 2017-08-23 14:37 | PN ---
S Progress Note (SOAP) Subjective: ALERT,IRRITABLE,ANXIOUS,INTERRUPTED SLEEP Objective: 08/23/17 14:35 Vital Signs Temperature 98.4 F 08/23/17 10:00 Pulse Rate 87 08/23/17 10:00 Respiratory Rate 18 08/23/17 10:00 Blood Pressure 107/70 08/23/17 10:00 O2 Sat by Pulse Oximetry (%) Assessment: 08/23/17 14:36 WITHDRAWAL SYMPTOM Plan: CONTINUE DETOX,DISCHARGE IN AM
[2017-08-23] MEDS: chlordiazePOXIDE HCL 10 MG CAPSULE PO SCH ×2 (17:48→22:58)
[2017-08-23] MEDS: ACETAMINOPHEN 325 MG TABLET (FP) PO PRN (17:50)
[2017-08-23] MEDS: ATORVASTATIN CA 20 MG TABLET (FP) PO SCH (22:58)
[2017-08-23] MEDS: DOCUSATE SODIUM 100 MG CAPSULE (FP) PO SCH (22:58)
[2017-08-23] MEDS: THIAMINE HCL 100 MG TABLET (FP) PO SCH (22:58)
[2017-08-24] MEDS: GABAPENTIN 100 MG CAPSULE (FP) PO SCH (05:39)
[2017-08-24] MEDS: chlordiazePOXIDE HCL 10 MG CAPSULE PO SCH ×2 (05:39→10:05)
[2017-08-24 07:22] VITALS: BP 138/78; PULSE 70; TEMP 97.7
[2017-08-24] MEDS: FERROUS SO4 325 MG TABLET (FP) PO SCH (07:29)
--- NOTE | 2017-08-24 09:13 | DS ---
[facility] Detox Discharge Summary Admission Date: 08/20/17 Discharge Date: 08/24/17 - History Present History: Alcohol Dependence, Cocaine Dependence - Physical Exam Results Vital Signs: Vital Signs Temperature 97.7 F 08/24/17 07:22 Pulse Rate 70 08/24/17 07:22 Respiratory Rate 19 08/24/17 07:22 Blood Pressure 138/78 08/24/17 07:22 O2 Sat by Pulse Oximetry (%) - Treatment Hospital Course: Detox Protocol Followed, Detoxed Safely, Responded well, Discharged Condition Good, Rehab Referral Accepted - Medication Discharge Medications: Ambulatory Orders Docusate Sodium [Colace -] 100 mg PO HS 04/30/17 Escitalopram Oxalate [Lexapro -] 10 mg PO DAILY #30 tablet 05/01/17 Gabapentin 800 mg PO HS 05/05/17 Gabapentin [Neurontin -] 800 mg PO HS #60 capsule 05/28/17 Abacavir/Dolutegravir/Lamivudi [Triumeq Tablet] 1 each PO DAILY #30 tablet 05/29 Albuterol Sulfate Inhaler - [Ventolin HFA Inhaler -] 2 inh PO Q4H PRN 30 Days # 1 inhaler 05/29/17 Amlodipine Besylate [Norvasc -] 10 mg PO DAILY #30 tablet 05/29/17 Atorvastatin Ca [Lipitor] 20 mg PO HS #30 tablet 05/29/17 Ferrous Sulfate [Iron] 325 mg PO DAILY #30 tablet 05/29/17 Hydrocortisone 1% Cream [Hytone 1% Cream -] 1 applic TP BID #1 tube 05/29/17 Losartan Potassium [Cozaar -] 50 mg PO DAILY #30 tablet 05/29/17 Clotrimazole/Betamethasone Dip [Clotrimazole-Betamethasone Crm] 45 gm TP BID Estrogens,Conjugated [Premarin Vaginal Cream -] 1 applic VG ASDIR 08/20/17 Fenofibrate 200 mg PO DAILY 08/20/17 Multivitamin [One Daily] 1 each PO DAILY 08/20/17 Ranitidine [Zantac -] 150 mg PO BID 08/20/17 Rivaroxaban [Xarelto -] 10 mg PO DAILY 08/20/17 Triamcinolone Acet 0.1% Cream [Aristocort] 0 gm TP BID 04/25/18 clonazePAM [Klonopin -] 0.5 mg PO HS 08/20/17 metFORMIN XR [Glucophage Xr -] 750 mg PO BID 08/20/17 Escitalopram Oxalate [Lexapro -] 20 mg PO DAILY #30 tablet 08/21/17 - Diagnosis (1) Asthma Current Visit: Yes Status: Chronic Qualifiers: Asthma severity: moderate (2) History of pulmonary embolism Current Visit: Yes Status: Acute (3) Insomnia secondary to depression with anxiety Current Visit: Yes Status: Acute (4) Alcohol dependence with uncomplicated withdrawal Current Visit: Yes Status: Chronic (5) Depression Current Visit: Yes Status: Acute (6) History of carpal tunnel surgery Current Visit: No Status: Acute (7) Insomnia Current Visit: No Status: Acute (8) Osteoarthritis Current Visit: No Status: Acute (9) Weight loss Current Visit: No Status: Acute (10) Asthma Current Visit: No Status: Chronic Qualifiers: Asthma severity: moderate Asthma complication type: uncomplicated (11) Cocaine dependence Current Visit: No Status: Chronic Qualifiers: Substance use status: uncomplicated Qualified Code(s): F14.20 - Cocaine dependence, uncomplicated (12) DM2 (diabetes mellitus, type 2) Current Visit: No Status: Chronic Qualifiers: Diabetes mellitus residential insulin use: without exterminator termite use Diabetes mellitus complication status: without complication Qualified Code(s): E11.9 - Type 2 diabetes mellitus without complications (13) Drug-induced mood disorder Current Visit: No Status: Chronic (14) Essential (primary) hypertension Current Visit: No Status: Chronic (15) HIV (human immunodeficiency virus infection) Current Visit: No Status: Chronic (16) History of cervical cancer Current Visit: No Status: Chronic (17) MDD (major depressive disorder) Current Visit: No Status: Chronic (18) Neuropathy Current Visit: No Status: Chronic (19) Nicotine dependence Current Visit: No Status: Chronic Qualifiers: Nicotine product type: cigarettes Substance use status: uncomplicated Qualified Code(s): F17.210 - Nicotine dependence, cigarettes, uncomplicated (20) History of carpal tunnel surgery of right wrist Current Visit: No Status: Resolved (21) History of neck surgery Current Visit: No Status: Resolved
[2017-08-24] MEDS: ABREVA TP SCH (10:02)
[2017-08-24] MEDS: ESTROGENS,CONJUGATE VAGINAL CR 30 GM TUBE VG SCH (10:03)
[2017-08-24] MEDS: amLODIPine BESYLATE 10 MG TABLET (FP) PO SCH (10:03)
[2017-08-24] MEDS: PRENATAL VITAMINS W/ FOLIC ACID TABLET (FP) PO SCH (10:03)
[2017-08-24] MEDS: RANITIDINE HCL 150 MG TABLET (FP) PO SCH (10:03)
[2017-08-24] MEDS: LOSARTAN POTASSIUM 50 MG TABLET (FP) PO SCH (10:03)
[2017-08-24] MEDS: ESCITALOPRAM OXALATE 20 MG TABLET (FP) PO SCH (10:03)
[2017-08-24] MEDS: NICOTINE 21 MG/24 HOURS TOPICAL PATCH TD SCH (10:04)
[2017-08-24] MEDS: RIVAROXABAN 10 MG TABLET PO SCH (10:05)
[2017-08-24] MEDS: FENOFIBRIC ACID 135 MG CAP PO SCH (10:05)
[2017-08-24] MEDS: ABACAVIR/DOLUTEGRAVIR/LAMIVUDI (TRIUMEQ) TABLET -NF PO SCH (10:05)
[2017-08-24] MEDS: AMMONIUM LACTATE 12% LOTION 225 GM BOTTLE TP SCH (10:06)
[2017-08-24] MEDS: HYDROCORTISONE 1% TOPICAL CREAM 30 GM TUBE TP SCH (10:06)
== END 2017-08-24 10:10 | disposition other institution (70) | DRG 774 ==
LOC: YASAS 13:02 → Y6N 15:35
PROVIDERS: ADMIT Internal Medicine; ATTEND Internal Medicine
PROC: HZ2ZZZZ Detoxification Services for Substance Abuse Treatment (ICD-10-PCS; principal; 2017-08-20)
DX: F10.230 Alcohol dependence with withdrawal, uncomplicated (principal); F14.20 Cocaine dependence, uncomplicated; F17.210 Nicotine dependence, cigarettes, uncomplicated; F32.9 Major depressive disorder, single episode, unspecified; F51.05 Insomnia due to other mental disorder; F19.24 Other psychoactive substance dependence with psychoactive substance-induced mood disorder; F33.9 Major depressive disorder, recurrent, unspecified; I10 Essential (primary) hypertension; G47.00 Insomnia, unspecified; M19.90 Unspecified osteoarthritis, unspecified site; J45.909 Unspecified asthma, uncomplicated; E11.9 Type 2 diabetes mellitus without complications; Z21 Asymptomatic human immunodeficiency virus [HIV] infection status; K21.9 Gastro-esophageal reflux disease without esophagitis; G62.9 Polyneuropathy, unspecified; D64.9 Anemia, unspecified; E78.00 Pure hypercholesterolemia, unspecified; Z88.8 Allergy status to other drugs, medicaments and biological substances; Z86.711 Personal history of pulmonary embolism; Z87.898 Personal history of other specified conditions; Z79.84 Long term (current) use of oral hypoglycemic drugs; Z85.41 Personal history of malignant neoplasm of cervix uteri
CPT/HCPCS: 36415; 80053; 81003; 82962; 85027; 86593; 93005; 93010; J1410

== ENCOUNTER 2017-08-24 10:25 | Inpatient (IN) | payer OTHER ==
--- NOTE | 2017-08-24 12:43 | HP ---
[facility] Rehab Assess/Revision - Admission History Admitted to Rehab from: [facility] Date of Admission to Rehab: 08/24/17 - Vital signs Vital Signs: Vital Signs Period Temp Pulse Resp BP Sys/Laws Pulse Ox Last 24 Hr 97.9 F 84 18 115/72 - Findings Detox History & Physical reviewed: Yes Concur with findings: Yes Comments/Additional Findings: for rehab as protocol Inpatient Rehab Admission - Initial Determination Are CD services needed?: Yes Free of communicable disease: Yes Not in need of hospitalization: Yes - Rehab Admission Criteria Previous failed treatment: Yes Poor recovery environment: Yes Comorbidities: Yes Lacks judgement: No Patient is meeting Inpatient Rehab admission criteria:: Yes
[2017-08-24] MEDS ORDERED: MAGNESIUM CITRATE 300 ML BOTTLE PO PRN (12:44)
[2017-08-24] MEDS ORDERED: MENTHOL/PHENOL 1 EACH UD MM PRN (12:44)
[2017-08-24] MEDS ORDERED: hydrOXYzine PAMOATE 50 MG CAPSULE (FP) PO PRN (12:44)
[2017-08-24] MEDS ORDERED: NICOTINE POLACRILEX 2 MG GUM BUC PRN (12:44)
[2017-08-24] MEDS ORDERED: IBUPROFEN 400 MG TABLET (FP) PO PRN (12:44)
[2017-08-24] MEDS ORDERED: P-EPHED 60MG/TRIPROLIDI 2.5MG TABLET PO PRN (12:44)
[2017-08-24] MEDS ORDERED: MAGNESIUM HYDROX 2400MG/30ML ORAL SUSPENSION 30 ML CUP PO PRN (12:44)
[2017-08-24] MEDS ORDERED: LOPERAMIDE HCL 2 MG CAPSULE PO PRN (12:44)
[2017-08-24] MEDS ORDERED: ALBUTEROL SO4 18 GM HFA INHALER IH PRN (12:45)
--- NOTE | 2017-08-24 15:16 | PN ---
S Progress Note Note: Psychiatric nurse pracitioner note: Call received by RN requesting patient's lexapro medication. Chart reviewed. Lexapro 20mg PO daily ordered. Will continue to monitor.
[2017-08-24] MEDS: ATORVASTATIN CA 20 MG TABLET (FP) PO SCH (21:21)
[2017-08-24] MEDS: RANITIDINE HCL 150 MG TABLET (FP) PO SCH (21:21)
[2017-08-24] MEDS: THIAMINE HCL 100 MG TABLET (FP) PO SCH (21:21)
[2017-08-24] MEDS: GABAPENTIN 100 MG CAPSULE (FP) PO SCH (21:21)
[2017-08-24] MEDS: HYDROCORTISONE 1% TOPICAL CREAM 30 GM TUBE TP SCH (21:22)
[2017-08-24] MEDS: DOCUSATE SODIUM 100 MG CAPSULE (FP) PO SCH (21:23)
[2017-08-24] MEDS ORDERED: MELATONIN 5 MG TABLETS PO PRN (22:00)
[2017-08-25] MEDS: AMMONIUM LACTATE 12% LOTION 225 GM BOTTLE TP PRN (06:38)
[2017-08-25] MEDS ORDERED: PT OWN MED DRAWER 7, Y5N ONE ×6 (06:39→12:18)
[2017-08-25] MEDS: GABAPENTIN 100 MG CAPSULE (FP) PO SCH ×2 (06:54→13:10)
[2017-08-25] MEDS: LOSARTAN POTASSIUM 50 MG TABLET (FP) PO SCH (09:48)
[2017-08-25] MEDS: RANITIDINE HCL 150 MG TABLET (FP) PO SCH ×2 (09:48→21:06)
[2017-08-25] MEDS: RIVAROXABAN 10 MG TABLET PO SCH (09:48)
[2017-08-25] MEDS: FENOFIBRIC ACID 135 MG CAP PO SCH (09:48)
[2017-08-25] MEDS: PRENATAL VITAMINS W/ FOLIC ACID TABLET (FP) PO SCH (09:49)
[2017-08-25] MEDS: ESCITALOPRAM OXALATE 20 MG TABLET (FP) PO SCH (09:49)
[2017-08-25] MEDS: NICOTINE 21 MG/24 HOURS TOPICAL PATCH TD SCH (09:49)
[2017-08-25] MEDS: amLODIPine BESYLATE 10 MG TABLET (FP) PO SCH (09:49)
[2017-08-25] MEDS: FERROUS SO4 325 MG TABLET (FP) PO SCH (09:49)
[2017-08-25] MEDS: HYDROCORTISONE 1% TOPICAL CREAM 30 GM TUBE TP SCH ×2 (09:49→21:07)
[2017-08-25] MEDS ORDERED: PATIENT'S OWN MEDICATION (NON-FORMULARY) (Ferrous Sulfate [Iron] 325 MG) PO SCH (10:00)
--- NOTE | 2017-08-25 12:06 | HP ---
Psychiatrist Admission - Data Date of interview: 08/25/17 Admission source: [address] [place] [address] Identifying data: This is the second admission to [address] [place] [address] this 62 years old single AA female mother of 2 adults, resides in [facility],supported by [facility]. Medical History: Significant for HIV+,Neuropathy, Psychiatric History: Patient reports depressed mood ,sleeping difficulties, anxiety.No psychiatric follow up,denies suicidal attempts,psychiatric admissions.She restarted Lexapro 20 mg po daily while in detox last week.Patient is still c/o interrupted sleep pattern. Physical/Sexual Abuse/Trauma History: denies Vital Signs: Vital Signs - 24 hr 08/25/17 08/25/17 08/25/17 01:12 03:30 07:25 Temperature 98.3 F Pulse Rate 78 Respiratory 18 Rate Blood Pressure 111/71 08/25/17 09:12 Temperature Pulse Rate 83 Respiratory Rate Blood Pressure 110/70 Allergies/Adverse Reactions: Allergies Allergy/AdvReac Type Severity Reaction Status Date / Time enalapril Allergy Severe Swelling Verified 08/20/17 14:27 erythromycin base AdvReac Severe Nausea Verified 05/05/17 14:45 Date of last physical exam: 08/20/17 Concur with the findings of this exam: Yes - Substance Abuse/Tx History Hx Alcohol Use: Yes (drinking since 16 yo) Hx Substance Use: Yes (cocaine since 19 yo,$100 daily) Substance Use Type: Alcohol, Cocaine Hx Substance Use Treatment: Yes (completed this program in Apr 2017) Mental Status Exam - Mental Status Exam Alert and Oriented to: Time, Place, Person Cognitive Function: Grossly Intact Patient Appearance: Well Groomed Mood: Depressed Affect: Mood Congruent, Labile Patient Behavior: Cooperative Speech Pattern: Clear Voice Loudness: Normal Thought Process: Goal Oriented Thought Disorder: Not Present Hallucinations: Denies Suicidal Ideation: Denies Homicidal Ideation: Denies Insight/Judgement: Fair Sleep: Fair Appetite: Fair Muscle strength/Tone: Normal Gait/Station: Normal Psychiatric Findings - Problem List ([place] 1, 2,3) (1) Alcohol dependence Current Visit: Yes Status: Chronic (2) History of carpal tunnel surgery Current Visit: Yes Status: Resolved (3) History of pulmonary embolism Current Visit: Yes Status: Resolved (4) Osteoarthritis Current Visit: Yes Status: Chronic (5) HIV (human immunodeficiency virus infection) Current Visit: Yes Status: Chronic (6) History of cervical cancer Current Visit: No Status: Chronic (7) Neuropathy Current Visit: Yes Status: Chronic (8) Nicotine dependence Current Visit: Yes Status: Chronic Qualifiers: Nicotine product type: cigarettes Substance use status: uncomplicated Qualified Code(s): F17.210 - Nicotine dependence, cigarettes, uncomplicated (9) History of neck surgery Current Visit: Yes Status: Resolved (10) Substance induced mood disorder Current Visit: Yes Status: Chronic (11) Cocaine dependence Current Visit: Yes Status: Chronic (12) Essential (primary) hypertension Current Visit: Yes Status: Chronic (13) Asthma Current Visit: No Status: Chronic Qualifiers: Asthma severity: moderate (14) DM2 (diabetes mellitus, type 2) Current Visit: Yes Status: Chronic Qualifiers: Diabetes mellitus intermodal truck driver insulin use: without chcf use Diabetes mellitus complication status: without complication Qualified Code(s): E11.9 - Type 2 diabetes mellitus without complications (15) Cocaine dependence Current Visit: Yes Status: Chronic Qualifiers: Substance use status: uncomplicated Qualified Code(s): F14.20 - Cocaine dependence, uncomplicated - Initial Treatment Plan Initial Treatment Plan: Continue Lexapro 20 mg po daily.add Trazodone 50 mg po [email or web address] monitor progress.
[2017-08-25] MEDS: ABACAVIR/DOLUTEGRAVIR/LAMIVUDI (TRIUMEQ) TABLET -NF PO SCH (12:17)
--- NOTE | 2017-08-25 12:23 | PN ---
[facility] Progress Note Note: Patient presents to discuss gabapentin dose and c/o dryness to nares. Laboratory Results - last 24 hr 08/24/17 08/25/17 17:07 06:37 POC Glucometer 104 113 Vital Signs Temperature 98.3 F 08/25/17 07:25 Pulse Rate 83 08/25/17 09:12 Respiratory Rate 18 08/25/17 07:25 Blood Pressure 110/70 08/25/17 09:12 O2 Sat by Pulse Oximetry (%) Subj: +dryness to nares; +numbness and tingling to hands and feet. Denies CP, SOB and dizziness. Obj: General: alert and oriented x 3. In no acute distress Nose: nares intact, no bleeding noted Ext: no edema. Full ROM A/P Peripheral neuropathies Dry nares Continue gabapentin as ordered PRN pain management medication continued add bacitracin top ointment to nares daily for dryness continue to monitor clinically.
[2017-08-25] MEDS: THIAMINE HCL 100 MG TABLET (FP) PO SCH (21:05)
[2017-08-25] MEDS: ATORVASTATIN CA 20 MG TABLET (FP) PO SCH (21:06)
[2017-08-25] MEDS: GABAPENTIN 300 MG CAPSULE (FP) PO SCH (21:06)
[2017-08-25] MEDS: DOCUSATE SODIUM 100 MG CAPSULE (FP) PO SCH (21:06)
[2017-08-25] MEDS: traZODone HCL 50 MG TABLET (FP) PO SCH (21:06)
[2017-08-26] MEDS ORDERED: PT OWN MED DRAWER 7, Y5N ONE (08:43)
[2017-08-26] MEDS: ABREVA TP PRN (09:57)
[2017-08-26] MEDS: NICOTINE 21 MG/24 HOURS TOPICAL PATCH TD SCH (09:58)
[2017-08-26] MEDS: BACITRACIN 0.9 GM PACKET TP SCH (09:58)
[2017-08-26] MEDS: RIVAROXABAN 10 MG TABLET PO SCH (09:59)
[2017-08-26] MEDS: RANITIDINE HCL 150 MG TABLET (FP) PO SCH ×2 (09:59→21:07)
[2017-08-26] MEDS: FENOFIBRIC ACID 135 MG CAP PO SCH (09:59)
[2017-08-26] MEDS: PRENATAL VITAMINS W/ FOLIC ACID TABLET (FP) PO SCH (10:00)
[2017-08-26] MEDS: LOSARTAN POTASSIUM 50 MG TABLET (FP) PO SCH (10:00)
[2017-08-26] MEDS: FERROUS SO4 325 MG TABLET (FP) PO SCH (10:00)
[2017-08-26] MEDS: amLODIPine BESYLATE 10 MG TABLET (FP) PO SCH (10:00)
[2017-08-26] MEDS: ESCITALOPRAM OXALATE 20 MG TABLET (FP) PO SCH (10:00)
[2017-08-26] MEDS: AMMONIUM LACTATE 12% LOTION 225 GM BOTTLE TP PRN (10:01)
[2017-08-26] MEDS: HYDROCORTISONE 1% TOPICAL CREAM 30 GM TUBE TP SCH ×2 (10:01→21:08)
[2017-08-26] MEDS: ABACAVIR/DOLUTEGRAVIR/LAMIVUDI (TRIUMEQ) TABLET -NF PO SCH (10:02)
[2017-08-26] MEDS: DOCUSATE SODIUM 100 MG CAPSULE (FP) PO SCH (21:07)
[2017-08-26] MEDS: THIAMINE HCL 100 MG TABLET (FP) PO SCH (21:07)
[2017-08-26] MEDS: ATORVASTATIN CA 20 MG TABLET (FP) PO SCH (21:07)
[2017-08-26] MEDS: GABAPENTIN 300 MG CAPSULE (FP) PO SCH (21:07)
[2017-08-26] MEDS: traZODone HCL 50 MG TABLET (FP) PO SCH (21:07)
[2017-08-27] MEDS ORDERED: PT OWN MED DRAWER 7, Y5N ONE (08:26)
[2017-08-27] MEDS: LOSARTAN POTASSIUM 50 MG TABLET (FP) PO SCH (09:12)
[2017-08-27] MEDS: BACITRACIN 0.9 GM PACKET TP SCH (09:12)
[2017-08-27] MEDS: ESCITALOPRAM OXALATE 20 MG TABLET (FP) PO SCH (09:13)
[2017-08-27] MEDS: HYDROCORTISONE 1% TOPICAL CREAM 30 GM TUBE TP SCH ×2 (09:13→21:12)
[2017-08-27] MEDS: FERROUS SO4 325 MG TABLET (FP) PO SCH (09:13)
[2017-08-27] MEDS: NICOTINE 21 MG/24 HOURS TOPICAL PATCH TD SCH (09:14)
[2017-08-27] MEDS: PRENATAL VITAMINS W/ FOLIC ACID TABLET (FP) PO SCH (09:15)
[2017-08-27] MEDS: amLODIPine BESYLATE 10 MG TABLET (FP) PO SCH (09:15)
[2017-08-27] MEDS: ABACAVIR/DOLUTEGRAVIR/LAMIVUDI (TRIUMEQ) TABLET -NF PO SCH (09:15)
[2017-08-27] MEDS: RANITIDINE HCL 150 MG TABLET (FP) PO SCH ×2 (09:15→21:10)
[2017-08-27] MEDS: FENOFIBRIC ACID 135 MG CAP PO SCH (09:16)
[2017-08-27] MEDS: RIVAROXABAN 10 MG TABLET PO SCH (09:17)
[2017-08-27] MEDS: MAG HYDROX/AL HYDROX/SIMETH 30 ML UNIT-DOSE CUP PO PRN (11:21)
[2017-08-27] MEDS: THIAMINE HCL 100 MG TABLET (FP) PO SCH (21:10)
[2017-08-27] MEDS: ATORVASTATIN CA 20 MG TABLET (FP) PO SCH (21:10)
[2017-08-27] MEDS: GABAPENTIN 300 MG CAPSULE (FP) PO SCH (21:10)
[2017-08-27] MEDS: DOCUSATE SODIUM 100 MG CAPSULE (FP) PO SCH (21:10)
[2017-08-27] MEDS: traZODone HCL 50 MG TABLET (FP) PO SCH (21:12)
[2017-08-27] MEDS: guaiFENesin/D-METHORPHAN HB 10 ML UNIT-DOSE CUPS PO PRN (22:14)
[2017-08-28] MEDS: FERROUS SO4 325 MG TABLET (FP) PO SCH (10:05)
[2017-08-28] MEDS: LOSARTAN POTASSIUM 50 MG TABLET (FP) PO SCH (10:05)
[2017-08-28] MEDS: BACITRACIN 0.9 GM PACKET TP SCH (10:05)
[2017-08-28] MEDS: ESCITALOPRAM OXALATE 20 MG TABLET (FP) PO SCH (10:06)
[2017-08-28] MEDS: ABREVA TP PRN (10:06)
[2017-08-28] MEDS: HYDROCORTISONE 1% TOPICAL CREAM 30 GM TUBE TP SCH ×2 (10:06→21:16)
[2017-08-28] MEDS: RIVAROXABAN 10 MG TABLET PO SCH (10:07)
[2017-08-28] MEDS: RANITIDINE HCL 150 MG TABLET (FP) PO SCH ×2 (10:07→21:14)
[2017-08-28] MEDS: amLODIPine BESYLATE 10 MG TABLET (FP) PO SCH (10:07)
[2017-08-28] MEDS: NICOTINE 21 MG/24 HOURS TOPICAL PATCH TD SCH (10:07)
[2017-08-28] MEDS: PRENATAL VITAMINS W/ FOLIC ACID TABLET (FP) PO SCH (10:07)
[2017-08-28] MEDS: FENOFIBRIC ACID 135 MG CAP PO SCH (10:08)
[2017-08-28] MEDS: ABACAVIR/DOLUTEGRAVIR/LAMIVUDI (TRIUMEQ) TABLET -NF PO SCH (10:08)
[2017-08-28] MEDS: COLLOIDAL OATMEAL 1 BAR EACH TP PRN (14:42)
[2017-08-28] MEDS: GABAPENTIN 300 MG CAPSULE (FP) PO SCH (21:14)
[2017-08-28] MEDS: THIAMINE HCL 100 MG TABLET (FP) PO SCH (21:14)
[2017-08-28] MEDS: traZODone HCL 50 MG TABLET (FP) PO SCH (21:14)
[2017-08-28] MEDS: ATORVASTATIN CA 20 MG TABLET (FP) PO SCH (21:14)
[2017-08-28] MEDS: DOCUSATE SODIUM 100 MG CAPSULE (FP) PO SCH (21:16)
[2017-08-29] MEDS ORDERED: PT OWN MED DRAWER 7, Y5N ONE ×2 (09:00→21:17)
[2017-08-29] MEDS: FERROUS SO4 325 MG TABLET (FP) PO SCH (10:10)
[2017-08-29] MEDS: PRENATAL VITAMINS W/ FOLIC ACID TABLET (FP) PO SCH (10:10)
[2017-08-29] MEDS: RANITIDINE HCL 150 MG TABLET (FP) PO SCH ×2 (10:10→21:14)
[2017-08-29] MEDS: DOCUSATE SODIUM 100 MG CAPSULE (FP) PO SCH ×2 (10:10→21:14)
[2017-08-29] MEDS: LOSARTAN POTASSIUM 50 MG TABLET (FP) PO SCH (10:10)
[2017-08-29] MEDS: ESCITALOPRAM OXALATE 20 MG TABLET (FP) PO SCH (10:10)
[2017-08-29] MEDS: ABACAVIR/DOLUTEGRAVIR/LAMIVUDI (TRIUMEQ) TABLET -NF PO SCH (10:11)
[2017-08-29] MEDS: RIVAROXABAN 10 MG TABLET PO SCH (10:11)
[2017-08-29] MEDS: amLODIPine BESYLATE 10 MG TABLET (FP) PO SCH (10:11)
[2017-08-29] MEDS: NICOTINE 21 MG/24 HOURS TOPICAL PATCH TD SCH (10:13)
[2017-08-29] MEDS: HYDROCORTISONE 1% TOPICAL CREAM 30 GM TUBE TP SCH ×2 (11:00→21:15)
[2017-08-29] MEDS: BACITRACIN 0.9 GM PACKET TP SCH (11:00)
[2017-08-29] MEDS: FENOFIBRIC ACID 135 MG CAP PO SCH (11:01)
[2017-08-29] MEDS: THIAMINE HCL 100 MG TABLET (FP) PO SCH (21:14)
[2017-08-29] MEDS: traZODone HCL 50 MG TABLET (FP) PO SCH (21:14)
[2017-08-29] MEDS: ATORVASTATIN CA 20 MG TABLET (FP) PO SCH (21:14)
[2017-08-29] MEDS: GABAPENTIN 300 MG CAPSULE (FP) PO SCH (21:14)
[2017-08-29] MEDS: ABREVA TP PRN (21:17)
[2017-08-29] MEDS: guaiFENesin/D-METHORPHAN HB 10 ML UNIT-DOSE CUPS PO PRN (21:17)
[2017-08-30] MEDS: ABREVA TP PRN (09:59)
[2017-08-30] MEDS: FERROUS SO4 325 MG TABLET (FP) PO SCH (09:59)
[2017-08-30] MEDS: RIVAROXABAN 10 MG TABLET PO SCH (10:00)
[2017-08-30] MEDS: ESCITALOPRAM OXALATE 20 MG TABLET (FP) PO SCH (10:00)
[2017-08-30] MEDS: DOCUSATE SODIUM 100 MG CAPSULE (FP) PO SCH ×2 (10:00→21:08)
[2017-08-30] MEDS: RANITIDINE HCL 150 MG TABLET (FP) PO SCH ×2 (10:00→21:08)
[2017-08-30] MEDS: PRENATAL VITAMINS W/ FOLIC ACID TABLET (FP) PO SCH (10:00)
[2017-08-30] MEDS: HYDROCORTISONE 1% TOPICAL CREAM 30 GM TUBE TP SCH ×2 (10:01→21:10)
[2017-08-30] MEDS: NICOTINE 21 MG/24 HOURS TOPICAL PATCH TD SCH (10:01)
[2017-08-30] MEDS: ABACAVIR/DOLUTEGRAVIR/LAMIVUDI (TRIUMEQ) TABLET -NF PO SCH (10:01)
[2017-08-30] MEDS: FENOFIBRIC ACID 135 MG CAP PO SCH (10:01)
[2017-08-30] MEDS: LOSARTAN POTASSIUM 50 MG TABLET (FP) PO SCH (10:02)
[2017-08-30] MEDS: amLODIPine BESYLATE 10 MG TABLET (FP) PO SCH (10:02)
[2017-08-30] MEDS: BACITRACIN 0.9 GM PACKET TP SCH (10:02)
[2017-08-30] MEDS: ATORVASTATIN CA 20 MG TABLET (FP) PO SCH (21:08)
[2017-08-30] MEDS: traZODone HCL 50 MG TABLET (FP) PO SCH (21:08)
[2017-08-30] MEDS: THIAMINE HCL 100 MG TABLET (FP) PO SCH (21:08)
[2017-08-30] MEDS: GABAPENTIN 300 MG CAPSULE (FP) PO SCH (21:08)
[2017-08-30] MEDS: guaiFENesin/D-METHORPHAN HB 10 ML UNIT-DOSE CUPS PO PRN (21:10)
[2017-08-31] MEDS ORDERED: PT OWN MED DRAWER 7, Y5N ONE ×2 (08:06→09:58)
[2017-08-31] MEDS: amLODIPine BESYLATE 10 MG TABLET (FP) PO SCH (09:53)
[2017-08-31] MEDS: NICOTINE 21 MG/24 HOURS TOPICAL PATCH TD SCH (09:53)
[2017-08-31] MEDS: PRENATAL VITAMINS W/ FOLIC ACID TABLET (FP) PO SCH (09:53)
[2017-08-31] MEDS: RIVAROXABAN 10 MG TABLET PO SCH (09:53)
[2017-08-31] MEDS: RANITIDINE HCL 150 MG TABLET (FP) PO SCH ×2 (09:54→21:08)
[2017-08-31] MEDS: ESCITALOPRAM OXALATE 20 MG TABLET (FP) PO SCH (09:54)
[2017-08-31] MEDS: LOSARTAN POTASSIUM 50 MG TABLET (FP) PO SCH (09:54)
[2017-08-31] MEDS: FERROUS SO4 325 MG TABLET (FP) PO SCH (09:54)
[2017-08-31] MEDS: DOCUSATE SODIUM 100 MG CAPSULE (FP) PO SCH ×2 (09:54→21:08)
[2017-08-31] MEDS: FENOFIBRIC ACID 135 MG CAP PO SCH (09:54)
[2017-08-31] MEDS: ABACAVIR/DOLUTEGRAVIR/LAMIVUDI (TRIUMEQ) TABLET -NF PO SCH (09:55)
[2017-08-31] MEDS: ABREVA TP PRN (09:55)
[2017-08-31] MEDS: HYDROCORTISONE 1% TOPICAL CREAM 30 GM TUBE TP SCH ×2 (09:55→21:09)
[2017-08-31] MEDS: BACITRACIN 0.9 GM PACKET TP SCH (09:56)
[2017-08-31] MEDS: THIAMINE HCL 100 MG TABLET (FP) PO SCH (21:08)
[2017-08-31] MEDS: GABAPENTIN 300 MG CAPSULE (FP) PO SCH (21:08)
[2017-08-31] MEDS: ATORVASTATIN CA 20 MG TABLET (FP) PO SCH (21:08)
[2017-08-31] MEDS: traZODone HCL 50 MG TABLET (FP) PO SCH (21:08)
[2017-09-01] MEDS ORDERED: PT OWN MED DRAWER 7, Y5N ONE (08:18)
[2017-09-01] MEDS: FERROUS SO4 325 MG TABLET (FP) PO SCH (09:46)
[2017-09-01] MEDS: RIVAROXABAN 10 MG TABLET PO SCH (09:46)
[2017-09-01] MEDS: RANITIDINE HCL 150 MG TABLET (FP) PO SCH ×2 (09:46→21:16)
[2017-09-01] MEDS: ABACAVIR/DOLUTEGRAVIR/LAMIVUDI (TRIUMEQ) TABLET -NF PO SCH (09:46)
[2017-09-01] MEDS: ESCITALOPRAM OXALATE 20 MG TABLET (FP) PO SCH (09:46)
[2017-09-01] MEDS: DOCUSATE SODIUM 100 MG CAPSULE (FP) PO SCH ×2 (09:46→21:15)
[2017-09-01] MEDS: FENOFIBRIC ACID 135 MG CAP PO SCH (09:47)
[2017-09-01] MEDS: ABREVA TP PRN (09:47)
[2017-09-01] MEDS: NICOTINE 21 MG/24 HOURS TOPICAL PATCH TD SCH (09:47)
[2017-09-01] MEDS: LOSARTAN POTASSIUM 50 MG TABLET (FP) PO SCH ×2 (09:48→12:37)
[2017-09-01] MEDS: PRENATAL VITAMINS W/ FOLIC ACID TABLET (FP) PO SCH (09:48)
[2017-09-01] MEDS: HYDROCORTISONE 1% TOPICAL CREAM 30 GM TUBE TP SCH ×2 (09:48→21:16)
[2017-09-01] MEDS: amLODIPine BESYLATE 10 MG TABLET (FP) PO SCH ×2 (09:48→12:37)
[2017-09-01] MEDS: BACITRACIN 0.9 GM PACKET TP SCH (09:50)
[2017-09-01] MEDS: ATORVASTATIN CA 20 MG TABLET (FP) PO SCH (21:15)
[2017-09-01] MEDS: GABAPENTIN 300 MG CAPSULE (FP) PO SCH (21:15)
[2017-09-01] MEDS: THIAMINE HCL 100 MG TABLET (FP) PO SCH (21:15)
[2017-09-01] MEDS: traZODone HCL 50 MG TABLET (FP) PO SCH (21:15)
[2017-09-02] MEDS ORDERED: PT OWN MED DRAWER 7, Y5N ONE ×2 (08:13→15:47)
[2017-09-02] MEDS: ESCITALOPRAM OXALATE 20 MG TABLET (FP) PO SCH (09:54)
[2017-09-02] MEDS: PRENATAL VITAMINS W/ FOLIC ACID TABLET (FP) PO SCH (09:54)
[2017-09-02] MEDS: FERROUS SO4 325 MG TABLET (FP) PO SCH (09:54)
[2017-09-02] MEDS: DOCUSATE SODIUM 100 MG CAPSULE (FP) PO SCH ×2 (09:54→21:22)
[2017-09-02] MEDS: RANITIDINE HCL 150 MG TABLET (FP) PO SCH ×2 (09:54→21:20)
[2017-09-02] MEDS: ABACAVIR/DOLUTEGRAVIR/LAMIVUDI (TRIUMEQ) TABLET -NF PO SCH (09:55)
[2017-09-02] MEDS: FENOFIBRIC ACID 135 MG CAP PO SCH (09:55)
[2017-09-02] MEDS: LOSARTAN POTASSIUM 50 MG TABLET (FP) PO SCH (09:55)
[2017-09-02] MEDS: amLODIPine BESYLATE 10 MG TABLET (FP) PO SCH (09:55)
[2017-09-02] MEDS: RIVAROXABAN 10 MG TABLET PO SCH (09:55)
[2017-09-02] MEDS: NICOTINE 21 MG/24 HOURS TOPICAL PATCH TD SCH (09:56)
[2017-09-02] MEDS: HYDROCORTISONE 1% TOPICAL CREAM 30 GM TUBE TP SCH ×2 (09:56→21:23)
[2017-09-02] MEDS: BACITRACIN 0.9 GM PACKET TP SCH (09:56)
[2017-09-02] MEDS: ABREVA TP PRN (09:57)
--- NOTE | 2017-09-02 14:34 | PN ---
S Progress Note Note: Patient c/o of abscess on the right chin, with purulent discharge, with pain and tenderness to the area. Patient also reports hx of hemorrhoids with constipation and when straining, hard stool has streak of blood. Denies SOB, CP , vertigo, abdominal pain or tenderness. Vital Signs Temperature 97.9 F 09/02/17 07:23 Pulse Rate 101 H 09/02/17 09:26 Respiratory Rate 18 09/02/17 07:23 Blood Pressure 111/69 09/02/17 09:26 O2 Sat by Pulse Oximetry (%) Laboratory Last Values POC Glucometer 95 UNITS (80-120) 09/02/17 06:13 A/P Patient AOx3, in no apparent distress Normal HR and Rhythm No adventitious breath sounds BS x 4, non-tender non distended Skin intact, + open nodule, tender and hot on the right chin Plan: 1. Abscess : Keflex 500mg QID x 3 days mupirocin top BID d/c top bacitracin 2. Constipation increase Colace 100mg TID Increase fluids ambulate 3. Hemorrhoids Annusol top QHS Patient advise to report any blood in the stool to RN. Continue to monitor
[2017-09-02] MEDS: CEPHALEXIN MONOHYDRATE 500 MG CAPSULE (UD) PO SCH ×2 (17:44→23:44)
[2017-09-02] MEDS: THIAMINE HCL 100 MG TABLET (FP) PO SCH (21:19)
[2017-09-02] MEDS: traZODone HCL 50 MG TABLET (FP) PO SCH (21:20)
[2017-09-02] MEDS: ATORVASTATIN CA 20 MG TABLET (FP) PO SCH (21:20)
[2017-09-02] MEDS: GABAPENTIN 300 MG CAPSULE (FP) PO SCH (21:20)
[2017-09-02] MEDS: HYDROCORTISONE 2.5% TOPICAL CREAM 30 GM TUBE PR SCH (21:21)
[2017-09-02] MEDS: MUPIROCIN CA 2% TOPICAL CREAM 15 GM TUBE TP SCH (21:22)
[2017-09-03] MEDS: DOCUSATE SODIUM 100 MG CAPSULE (FP) PO SCH ×3 (06:11→21:16)
[2017-09-03] MEDS: CEPHALEXIN MONOHYDRATE 500 MG CAPSULE (UD) PO SCH ×4 (06:11→23:47)
[2017-09-03] MEDS ORDERED: PT OWN MED DRAWER 7, Y5N ONE ×2 (08:35→09:54)
[2017-09-03] MEDS: NICOTINE 21 MG/24 HOURS TOPICAL PATCH TD SCH (09:49)
[2017-09-03] MEDS: FERROUS SO4 325 MG TABLET (FP) PO SCH (09:49)
[2017-09-03] MEDS: RIVAROXABAN 10 MG TABLET PO SCH (09:49)
[2017-09-03] MEDS: amLODIPine BESYLATE 10 MG TABLET (FP) PO SCH (09:49)
[2017-09-03] MEDS: PRENATAL VITAMINS W/ FOLIC ACID TABLET (FP) PO SCH (09:49)
[2017-09-03] MEDS: LOSARTAN POTASSIUM 50 MG TABLET (FP) PO SCH (09:49)
[2017-09-03] MEDS: ESCITALOPRAM OXALATE 20 MG TABLET (FP) PO SCH (09:49)
[2017-09-03] MEDS: RANITIDINE HCL 150 MG TABLET (FP) PO SCH ×2 (09:49→21:17)
[2017-09-03] MEDS: FENOFIBRIC ACID 135 MG CAP PO SCH (09:50)
[2017-09-03] MEDS: ABACAVIR/DOLUTEGRAVIR/LAMIVUDI (TRIUMEQ) TABLET -NF PO SCH (09:50)
[2017-09-03] MEDS: MUPIROCIN CA 2% TOPICAL CREAM 15 GM TUBE TP SCH ×2 (09:51→21:18)
[2017-09-03] MEDS: HYDROCORTISONE 2.5% TOPICAL CREAM 30 GM TUBE PR SCH (09:51)
[2017-09-03] MEDS: HYDROCORTISONE 1% TOPICAL CREAM 30 GM TUBE TP SCH ×2 (09:51→21:18)
[2017-09-03] MEDS: ABREVA TP PRN (09:54)
[2017-09-03] MEDS: ACETAMINOPHEN 325 MG TABLET (FP) PO PRN (11:42)
[2017-09-03] MEDS: traZODone HCL 50 MG TABLET (FP) PO SCH (21:16)
[2017-09-03] MEDS: GABAPENTIN 300 MG CAPSULE (FP) PO SCH (21:16)
[2017-09-03] MEDS: ATORVASTATIN CA 20 MG TABLET (FP) PO SCH (21:17)
[2017-09-03] MEDS: THIAMINE HCL 100 MG TABLET (FP) PO SCH (21:18)
[2017-09-03] MEDS: COLLOIDAL OATMEAL 1 BAR EACH TP PRN (21:19)
[2017-09-04] MEDS: CEPHALEXIN MONOHYDRATE 500 MG CAPSULE (UD) PO SCH ×3 (06:24→17:16)
[2017-09-04] MEDS: DOCUSATE SODIUM 100 MG CAPSULE (FP) PO SCH ×3 (06:24→21:27)
[2017-09-04] MEDS: ABACAVIR/DOLUTEGRAVIR/LAMIVUDI (TRIUMEQ) TABLET -NF PO SCH (10:01)
[2017-09-04] MEDS: ABREVA TP PRN (10:02)
[2017-09-04] MEDS: amLODIPine BESYLATE 10 MG TABLET (FP) PO SCH (10:02)
[2017-09-04] MEDS: ESCITALOPRAM OXALATE 20 MG TABLET (FP) PO SCH (10:02)
[2017-09-04] MEDS: LOSARTAN POTASSIUM 50 MG TABLET (FP) PO SCH (10:02)
[2017-09-04] MEDS: PRENATAL VITAMINS W/ FOLIC ACID TABLET (FP) PO SCH (10:02)
[2017-09-04] MEDS: RIVAROXABAN 10 MG TABLET PO SCH (10:02)
[2017-09-04] MEDS: FERROUS SO4 325 MG TABLET (FP) PO SCH (10:02)
[2017-09-04] MEDS: RANITIDINE HCL 150 MG TABLET (FP) PO SCH ×2 (10:02→21:25)
[2017-09-04] MEDS: HYDROCORTISONE 1% TOPICAL CREAM 30 GM TUBE TP SCH ×2 (10:03→21:27)
[2017-09-04] MEDS: MUPIROCIN CA 2% TOPICAL CREAM 15 GM TUBE TP SCH ×2 (10:03→21:24)
[2017-09-04] MEDS: HYDROCORTISONE 2.5% TOPICAL CREAM 30 GM TUBE PR SCH (10:03)
[2017-09-04] MEDS: AMMONIUM LACTATE 12% LOTION 225 GM BOTTLE TP PRN (10:04)
[2017-09-04] MEDS: FENOFIBRIC ACID 135 MG CAP PO SCH (10:04)
[2017-09-04] MEDS: NICOTINE 21 MG/24 HOURS TOPICAL PATCH TD SCH (10:06)
--- NOTE | 2017-09-04 13:12 | PN ---
S Progress Note Note: Patient c/o hydrocortisone anal cream is not helping with her hemorrhoid discomfort. Vital Signs Temperature 97.9 F 09/04/17 06:57 Pulse Rate 95 H 09/04/17 09:23 Respiratory Rate 16 09/04/17 06:57 Blood Pressure 113/75 09/04/17 09:23 O2 Sat by Pulse Oximetry (%) Cream changed to anusol suppository qhs increase fluids continue to monitor
[2017-09-04] MEDS: HYDROCORTISONE ACETATE 25 MG/SUPP.RECT RC SCH (21:22)
[2017-09-04] MEDS: GABAPENTIN 300 MG CAPSULE (FP) PO SCH (21:25)
[2017-09-04] MEDS: traZODone HCL 50 MG TABLET (FP) PO SCH (21:25)
[2017-09-04] MEDS: THIAMINE HCL 100 MG TABLET (FP) PO SCH (21:25)
[2017-09-04] MEDS: ATORVASTATIN CA 20 MG TABLET (FP) PO SCH (21:26)
[2017-09-05] MEDS: CEPHALEXIN MONOHYDRATE 500 MG CAPSULE (UD) PO SCH ×5 (00:41→23:25)
[2017-09-05] MEDS: DOCUSATE SODIUM 100 MG CAPSULE (FP) PO SCH ×3 (06:20→22:13)
[2017-09-05] MEDS: FERROUS SO4 325 MG TABLET (FP) PO SCH (10:13)
[2017-09-05] MEDS: RIVAROXABAN 10 MG TABLET PO SCH (10:13)
[2017-09-05] MEDS: PRENATAL VITAMINS W/ FOLIC ACID TABLET (FP) PO SCH (10:13)
[2017-09-05] MEDS: amLODIPine BESYLATE 10 MG TABLET (FP) PO SCH (10:14)
[2017-09-05] MEDS: RANITIDINE HCL 150 MG TABLET (FP) PO SCH ×2 (10:14→22:13)
[2017-09-05] MEDS: FENOFIBRIC ACID 135 MG CAP PO SCH (10:16)
[2017-09-05] MEDS: ABACAVIR/DOLUTEGRAVIR/LAMIVUDI (TRIUMEQ) TABLET -NF PO SCH (10:16)
[2017-09-05] MEDS: ABREVA TP PRN (10:17)
[2017-09-05] MEDS ORDERED: PT OWN MED DRAWER 7, Y5N ONE ×4 (10:17→22:47)
[2017-09-05] MEDS: NICOTINE 21 MG/24 HOURS TOPICAL PATCH TD SCH (10:18)
[2017-09-05] MEDS: MUPIROCIN CA 2% TOPICAL CREAM 15 GM TUBE TP SCH ×2 (11:01→22:10)
[2017-09-05] MEDS: LOSARTAN POTASSIUM 50 MG TABLET (FP) PO SCH (11:01)
[2017-09-05] MEDS: HYDROCORTISONE 1% TOPICAL CREAM 30 GM TUBE TP SCH ×2 (11:02→22:21)
[2017-09-05] MEDS: ESCITALOPRAM OXALATE 20 MG TABLET (FP) PO SCH (11:02)
--- NOTE | 2017-09-05 12:48 | PN ---
[facility] Progress Note Note: PATIENT CURRENTLY RECEIVING TREATMENT FOR CHIN ABSCESS. Vital Signs Temperature 98.0 F 09/05/17 06:53 Pulse Rate 96 H 09/05/17 06:53 Respiratory Rate 16 09/05/17 06:53 Blood Pressure 125/75 09/05/17 06:53 O2 Sat by Pulse Oximetry (%) Laboratory Tests 08/24/17 08/25/17 08/25/17 17:07 06:37 17:11 POC Glucometer 104 113 119 08/26/17 08/26/17 08/27/17 06:23 16:44 06:19 POC Glucometer 94 108 124 08/27/17 08/28/17 08/28/17 17:01 06:15 16:59 POC Glucometer 103 102 100 08/29/17 08/29/17 08/30/17 06:36 16:55 06:45 POC Glucometer 131 83 119 08/30/17 08/31/17 08/31/17 16:46 06:46 16:38 POC Glucometer 119 118 102 09/01/17 09/01/17 09/02/17 06:08 17:01 06:13 POC Glucometer 132 128 95 09/02/17 09/03/17 09/03/17 16:50 06:11 17:09 POC Glucometer 98 127 97 09/04/17 09/04/17 09/05/17 06:23 17:14 06:19 POC Glucometer 132 106 112 SUBJ: DENIES PAIN TO ABSCESS SITE. NO FEVER, CP, SOB AND DIZZINESS REPORTED. REPORTS YELLOW DISCHARGE FROM ABSCESS. OBJ: GENERAL: ALERT AND ORIENTED X 3. IN NO ACUTE DISTRESS SKIN: WARM AND DRY. +CHIN ABSCESS WITH MILD REDNESS AND YELLOW DISCHARGE. NO SURROUNDING SWELLING. A/P: INFECTED ABSCESS WILL CONTINUE KEFLEX TREATMENT X 3 MORE DAYS CONTINUE TO MONITOR CLINICALLY
[2017-09-05] MEDS: ACETAMINOPHEN 325 MG TABLET (FP) PO PRN (15:21)
[2017-09-05] MEDS: THIAMINE HCL 100 MG TABLET (FP) PO SCH (22:12)
[2017-09-05] MEDS: GABAPENTIN 300 MG CAPSULE (FP) PO SCH (22:13)
[2017-09-05] MEDS: ATORVASTATIN CA 20 MG TABLET (FP) PO SCH (22:13)
[2017-09-05] MEDS: traZODone HCL 50 MG TABLET (FP) PO SCH (22:13)
[2017-09-05] MEDS: HYDROCORTISONE ACETATE 25 MG/SUPP.RECT RC SCH (23:25)
[2017-09-06] MEDS: CEPHALEXIN MONOHYDRATE 500 MG CAPSULE (UD) PO SCH ×4 (06:41→23:58)
[2017-09-06] MEDS: DOCUSATE SODIUM 100 MG CAPSULE (FP) PO SCH ×3 (06:41→21:25)
[2017-09-06] MEDS ORDERED: PT OWN MED DRAWER 7, Y5N ONE ×4 (09:22→21:26)
[2017-09-06] MEDS: MUPIROCIN CA 2% TOPICAL CREAM 15 GM TUBE TP SCH ×2 (09:56→21:28)
[2017-09-06] MEDS: RANITIDINE HCL 150 MG TABLET (FP) PO SCH ×2 (09:56→21:25)
[2017-09-06] MEDS: FERROUS SO4 325 MG TABLET (FP) PO SCH (09:56)
[2017-09-06] MEDS: FENOFIBRIC ACID 135 MG CAP PO SCH (09:56)
[2017-09-06] MEDS: RIVAROXABAN 10 MG TABLET PO SCH (09:56)
[2017-09-06] MEDS: amLODIPine BESYLATE 10 MG TABLET (FP) PO SCH (09:56)
[2017-09-06] MEDS: PRENATAL VITAMINS W/ FOLIC ACID TABLET (FP) PO SCH (09:56)
[2017-09-06] MEDS: ESCITALOPRAM OXALATE 20 MG TABLET (FP) PO SCH (09:56)
[2017-09-06] MEDS: ABACAVIR/DOLUTEGRAVIR/LAMIVUDI (TRIUMEQ) TABLET -NF PO SCH (09:56)
[2017-09-06] MEDS: LOSARTAN POTASSIUM 50 MG TABLET (FP) PO SCH (09:56)
[2017-09-06] MEDS: NICOTINE 21 MG/24 HOURS TOPICAL PATCH TD SCH (09:57)
[2017-09-06] MEDS: HYDROCORTISONE 1% TOPICAL CREAM 30 GM TUBE TP SCH ×2 (09:57→22:20)
[2017-09-06] MEDS: ABREVA TP PRN (09:59)
[2017-09-06] MEDS: ACETAMINOPHEN 325 MG TABLET (FP) PO PRN (15:51)
[2017-09-06] MEDS: THIAMINE HCL 100 MG TABLET (FP) PO SCH (21:24)
[2017-09-06] MEDS: GABAPENTIN 300 MG CAPSULE (FP) PO SCH (21:25)
[2017-09-06] MEDS: traZODone HCL 50 MG TABLET (FP) PO SCH (21:25)
[2017-09-06] MEDS: ATORVASTATIN CA 20 MG TABLET (FP) PO SCH (21:25)
[2017-09-06] MEDS: HYDROCORTISONE ACETATE 25 MG/SUPP.RECT RC SCH (22:35)
[2017-09-07] MEDS: CEPHALEXIN MONOHYDRATE 500 MG CAPSULE (UD) PO SCH ×4 (06:14→23:20)
[2017-09-07] MEDS: DOCUSATE SODIUM 100 MG CAPSULE (FP) PO SCH ×3 (06:14→21:17)
[2017-09-07] MEDS ORDERED: PT OWN MED DRAWER 7, Y5N ONE (08:03)
[2017-09-07] MEDS: ACETAMINOPHEN 325 MG TABLET (FP) PO PRN (08:11)
[2017-09-07] MEDS: FERROUS SO4 325 MG TABLET (FP) PO SCH (09:46)
[2017-09-07] MEDS: ESCITALOPRAM OXALATE 20 MG TABLET (FP) PO SCH (09:46)
[2017-09-07] MEDS: RANITIDINE HCL 150 MG TABLET (FP) PO SCH ×2 (09:46→21:17)
[2017-09-07] MEDS: PRENATAL VITAMINS W/ FOLIC ACID TABLET (FP) PO SCH (09:46)
[2017-09-07] MEDS: FENOFIBRIC ACID 135 MG CAP PO SCH (09:46)
[2017-09-07] MEDS: LOSARTAN POTASSIUM 50 MG TABLET (FP) PO SCH (09:46)
[2017-09-07] MEDS: RIVAROXABAN 10 MG TABLET PO SCH (09:46)
[2017-09-07] MEDS: amLODIPine BESYLATE 10 MG TABLET (FP) PO SCH (09:46)
[2017-09-07] MEDS: NICOTINE 21 MG/24 HOURS TOPICAL PATCH TD SCH (09:46)
[2017-09-07] MEDS: HYDROCORTISONE 1% TOPICAL CREAM 30 GM TUBE TP SCH ×2 (09:47→21:21)
[2017-09-07] MEDS: MUPIROCIN CA 2% TOPICAL CREAM 15 GM TUBE TP SCH ×2 (09:48→21:20)
[2017-09-07] MEDS: ABACAVIR/DOLUTEGRAVIR/LAMIVUDI (TRIUMEQ) TABLET -NF PO SCH (09:49)
[2017-09-07] MEDS: ABREVA TP PRN (09:51)
[2017-09-07] MEDS: MAG HYDROX/AL HYDROX/SIMETH 30 ML UNIT-DOSE CUP PO PRN (18:48)
[2017-09-07] MEDS: THIAMINE HCL 100 MG TABLET (FP) PO SCH (21:17)
[2017-09-07] MEDS: GABAPENTIN 300 MG CAPSULE (FP) PO SCH (21:17)
[2017-09-07] MEDS: ATORVASTATIN CA 20 MG TABLET (FP) PO SCH (21:17)
[2017-09-07] MEDS: traZODone HCL 50 MG TABLET (FP) PO SCH (21:17)
[2017-09-07] MEDS: HYDROCORTISONE ACETATE 25 MG/SUPP.RECT RC SCH (21:20)
[2017-09-08] MEDS: CEPHALEXIN MONOHYDRATE 500 MG CAPSULE (UD) PO SCH ×2 (06:19→12:32)
[2017-09-08] MEDS: DOCUSATE SODIUM 100 MG CAPSULE (FP) PO SCH ×3 (06:19→21:16)
[2017-09-08] MEDS: ESCITALOPRAM OXALATE 20 MG TABLET (FP) PO SCH (09:35)
[2017-09-08] MEDS: amLODIPine BESYLATE 10 MG TABLET (FP) PO SCH (09:35)
[2017-09-08] MEDS: RANITIDINE HCL 150 MG TABLET (FP) PO SCH ×2 (09:35→21:15)
[2017-09-08] MEDS: PRENATAL VITAMINS W/ FOLIC ACID TABLET (FP) PO SCH (09:35)
[2017-09-08] MEDS: FERROUS SO4 325 MG TABLET (FP) PO SCH (09:35)
[2017-09-08] MEDS: LOSARTAN POTASSIUM 50 MG TABLET (FP) PO SCH (09:35)
[2017-09-08] MEDS: RIVAROXABAN 10 MG TABLET PO SCH (09:35)
[2017-09-08] MEDS: NICOTINE 21 MG/24 HOURS TOPICAL PATCH TD SCH (09:37)
[2017-09-08] MEDS: FENOFIBRIC ACID 135 MG CAP PO SCH (09:37)
[2017-09-08] MEDS: ABACAVIR/DOLUTEGRAVIR/LAMIVUDI (TRIUMEQ) TABLET -NF PO SCH (09:37)
[2017-09-08] MEDS: HYDROCORTISONE 1% TOPICAL CREAM 30 GM TUBE TP SCH ×2 (09:37→21:19)
[2017-09-08] MEDS: MUPIROCIN CA 2% TOPICAL CREAM 15 GM TUBE TP SCH ×2 (09:37→21:16)
[2017-09-08] MEDS: ATORVASTATIN CA 20 MG TABLET (FP) PO SCH (21:15)
[2017-09-08] MEDS: traZODone HCL 50 MG TABLET (FP) PO SCH (21:15)
[2017-09-08] MEDS: THIAMINE HCL 100 MG TABLET (FP) PO SCH (21:15)
[2017-09-08] MEDS: GABAPENTIN 300 MG CAPSULE (FP) PO SCH (21:16)
[2017-09-08] MEDS: HYDROCORTISONE ACETATE 25 MG/SUPP.RECT RC SCH (21:18)
[2017-09-08] MEDS ORDERED: PT OWN MED DRAWER 7, Y5N ONE (21:18)
[2017-09-09] MEDS: DOCUSATE SODIUM 100 MG CAPSULE (FP) PO SCH ×3 (06:06→21:10)
[2017-09-09] MEDS ORDERED: PT OWN MED DRAWER 7, Y5N ONE ×3 (08:35→20:31)
[2017-09-09] MEDS: NICOTINE 21 MG/24 HOURS TOPICAL PATCH TD SCH (09:59)
[2017-09-09] MEDS: RIVAROXABAN 10 MG TABLET PO SCH (10:00)
[2017-09-09] MEDS: FENOFIBRIC ACID 135 MG CAP PO SCH (10:00)
[2017-09-09] MEDS: FERROUS SO4 325 MG TABLET (FP) PO SCH (10:00)
[2017-09-09] MEDS: ABACAVIR/DOLUTEGRAVIR/LAMIVUDI (TRIUMEQ) TABLET -NF PO SCH (10:00)
[2017-09-09] MEDS: PRENATAL VITAMINS W/ FOLIC ACID TABLET (FP) PO SCH (10:00)
[2017-09-09] MEDS: RANITIDINE HCL 150 MG TABLET (FP) PO SCH ×2 (10:01→21:12)
[2017-09-09] MEDS: amLODIPine BESYLATE 10 MG TABLET (FP) PO SCH (10:01)
[2017-09-09] MEDS: ESCITALOPRAM OXALATE 20 MG TABLET (FP) PO SCH (10:01)
[2017-09-09] MEDS: LOSARTAN POTASSIUM 50 MG TABLET (FP) PO SCH (10:02)
[2017-09-09] MEDS: MUPIROCIN CA 2% TOPICAL CREAM 15 GM TUBE TP SCH ×2 (10:02→21:11)
[2017-09-09] MEDS: HYDROCORTISONE 1% TOPICAL CREAM 30 GM TUBE TP SCH ×2 (10:02→21:11)
[2017-09-09] MEDS: ABREVA TP PRN (10:04)
[2017-09-09] MEDS: MAG HYDROX/AL HYDROX/SIMETH 30 ML UNIT-DOSE CUP PO PRN (11:42)
[2017-09-09] MEDS: THIAMINE HCL 100 MG TABLET (FP) PO SCH (21:09)
[2017-09-09] MEDS: ATORVASTATIN CA 20 MG TABLET (FP) PO SCH (21:10)
[2017-09-09] MEDS: GABAPENTIN 300 MG CAPSULE (FP) PO SCH (21:10)
[2017-09-09] MEDS: traZODone HCL 50 MG TABLET (FP) PO SCH (21:10)
[2017-09-09] MEDS: HYDROCORTISONE ACETATE 25 MG/SUPP.RECT RC SCH (22:18)
[2017-09-10] MEDS: DOCUSATE SODIUM 100 MG CAPSULE (FP) PO SCH ×3 (06:24→21:16)
[2017-09-10] MEDS: amLODIPine BESYLATE 10 MG TABLET (FP) PO SCH (09:57)
[2017-09-10] MEDS: MUPIROCIN CA 2% TOPICAL CREAM 15 GM TUBE TP SCH ×2 (09:57→21:17)
[2017-09-10] MEDS: FERROUS SO4 325 MG TABLET (FP) PO SCH (09:58)
[2017-09-10] MEDS: ESCITALOPRAM OXALATE 20 MG TABLET (FP) PO SCH (09:58)
[2017-09-10] MEDS: RIVAROXABAN 10 MG TABLET PO SCH (09:58)
[2017-09-10] MEDS: RANITIDINE HCL 150 MG TABLET (FP) PO SCH ×2 (09:58→21:16)
[2017-09-10] MEDS: PRENATAL VITAMINS W/ FOLIC ACID TABLET (FP) PO SCH (09:58)
[2017-09-10] MEDS: ABACAVIR/DOLUTEGRAVIR/LAMIVUDI (TRIUMEQ) TABLET -NF PO SCH (09:59)
[2017-09-10] MEDS: FENOFIBRIC ACID 135 MG CAP PO SCH (09:59)
[2017-09-10] MEDS: HYDROCORTISONE 1% TOPICAL CREAM 30 GM TUBE TP SCH ×2 (10:00→21:18)
[2017-09-10] MEDS: NICOTINE 21 MG/24 HOURS TOPICAL PATCH TD SCH (10:00)
[2017-09-10] MEDS: ABREVA TP PRN (10:00)
[2017-09-10] MEDS: LOSARTAN POTASSIUM 50 MG TABLET (FP) PO SCH (10:02)
[2017-09-10] MEDS: guaiFENesin/D-METHORPHAN HB 10 ML UNIT-DOSE CUPS PO PRN (15:44)
[2017-09-10] MEDS: ATORVASTATIN CA 20 MG TABLET (FP) PO SCH (21:16)
[2017-09-10] MEDS: THIAMINE HCL 100 MG TABLET (FP) PO SCH (21:16)
[2017-09-10] MEDS: traZODone HCL 50 MG TABLET (FP) PO SCH (21:17)
[2017-09-10] MEDS: GABAPENTIN 300 MG CAPSULE (FP) PO SCH (21:17)
[2017-09-10] MEDS: HYDROCORTISONE ACETATE 25 MG/SUPP.RECT RC SCH (21:17)
[2017-09-10] MEDS ORDERED: PT OWN MED DRAWER 7, Y5N ONE (21:18)
[2017-09-11] MEDS: DOCUSATE SODIUM 100 MG CAPSULE (FP) PO SCH ×3 (06:46→21:15)
[2017-09-11] MEDS ORDERED: PT OWN MED DRAWER 7, Y5N ONE (08:41)
[2017-09-11] MEDS: FENOFIBRIC ACID 135 MG CAP PO SCH (09:57)
[2017-09-11] MEDS: NICOTINE 21 MG/24 HOURS TOPICAL PATCH TD SCH (09:57)
[2017-09-11] MEDS: ABACAVIR/DOLUTEGRAVIR/LAMIVUDI (TRIUMEQ) TABLET -NF PO SCH (09:57)
[2017-09-11] MEDS: ABREVA TP PRN (09:57)
[2017-09-11] MEDS: amLODIPine BESYLATE 10 MG TABLET (FP) PO SCH (09:58)
[2017-09-11] MEDS: ESCITALOPRAM OXALATE 20 MG TABLET (FP) PO SCH (09:58)
[2017-09-11] MEDS: FERROUS SO4 325 MG TABLET (FP) PO SCH (09:58)
[2017-09-11] MEDS: LOSARTAN POTASSIUM 50 MG TABLET (FP) PO SCH (09:58)
[2017-09-11] MEDS: RANITIDINE HCL 150 MG TABLET (FP) PO SCH ×2 (09:58→21:15)
[2017-09-11] MEDS: PRENATAL VITAMINS W/ FOLIC ACID TABLET (FP) PO SCH (09:58)
[2017-09-11] MEDS: RIVAROXABAN 10 MG TABLET PO SCH (09:59)
[2017-09-11] MEDS: HYDROCORTISONE 1% TOPICAL CREAM 30 GM TUBE TP SCH ×2 (09:59→21:15)
[2017-09-11] MEDS: MUPIROCIN CA 2% TOPICAL CREAM 15 GM TUBE TP SCH ×2 (09:59→21:16)
[2017-09-11] MEDS: guaiFENesin/D-METHORPHAN HB 10 ML UNIT-DOSE CUPS PO PRN ×2 (14:20→21:18)
[2017-09-11] MEDS: THIAMINE HCL 100 MG TABLET (FP) PO SCH (21:15)
[2017-09-11] MEDS: GABAPENTIN 300 MG CAPSULE (FP) PO SCH (21:15)
[2017-09-11] MEDS: ATORVASTATIN CA 20 MG TABLET (FP) PO SCH (21:15)
[2017-09-11] MEDS: traZODone HCL 50 MG TABLET (FP) PO SCH (21:16)
[2017-09-11] MEDS: HYDROCORTISONE ACETATE 25 MG/SUPP.RECT RC SCH (21:16)
[2017-09-12] MEDS ORDERED: PT OWN MED DRAWER 7, Y5N ONE ×2 (05:47→08:37)
[2017-09-12] MEDS: DOCUSATE SODIUM 100 MG CAPSULE (FP) PO SCH (06:30)
[2017-09-12 07:23] VITALS: TEMP 97
[2017-09-12 09:20] VITALS: BP 123/73; PULSE 94
[2017-09-12] MEDS: ESCITALOPRAM OXALATE 20 MG TABLET (FP) PO SCH (09:39)
[2017-09-12] MEDS: amLODIPine BESYLATE 10 MG TABLET (FP) PO SCH (09:39)
[2017-09-12] MEDS: RIVAROXABAN 10 MG TABLET PO SCH (09:39)
[2017-09-12] MEDS: LOSARTAN POTASSIUM 50 MG TABLET (FP) PO SCH (09:39)
[2017-09-12] MEDS: RANITIDINE HCL 150 MG TABLET (FP) PO SCH (09:39)
[2017-09-12] MEDS: MUPIROCIN CA 2% TOPICAL CREAM 15 GM TUBE TP SCH (09:40)
[2017-09-12] MEDS: ABACAVIR/DOLUTEGRAVIR/LAMIVUDI (TRIUMEQ) TABLET -NF PO SCH (09:40)
[2017-09-12] MEDS: FENOFIBRIC ACID 135 MG CAP PO SCH (09:40)
[2017-09-12] MEDS: PRENATAL VITAMINS W/ FOLIC ACID TABLET (FP) PO SCH (09:41)
[2017-09-12] MEDS: NICOTINE 21 MG/24 HOURS TOPICAL PATCH TD SCH (09:41)
[2017-09-12] MEDS: FERROUS SO4 325 MG TABLET (FP) PO SCH (09:41)
[2017-09-12] MEDS: HYDROCORTISONE 1% TOPICAL CREAM 30 GM TUBE TP SCH (09:42)
[2017-09-12] MEDS: ABREVA TP PRN (09:48)
--- NOTE | 2017-09-12 09:52 | PN ---
Psychiatric Progress Note Vital Signs: Vital Signs Period Temp Pulse Resp BP Sys/Laws Pulse Ox Last 24 Hr 97.0 F 94-98 - 123-148/73-92 Date of Session: 09/12/17 Chief Complaint:: Discharge visit HPI: Patient addressed alcohol and Cocaine dependence comorbid with Substance induced mood disorder. ROS: Multiple medical problems. Current Medications: Active Medications Generic Name Dose Route Start Last Admin Trade Name Freq PRN Reason Stop Dose Admin Abacavir/Dolutegravir/Lamivudine 1 each 08/25/17 10:00 09/11/17 09:57 Triumeq (Non-Formulary) PO 1 each DAILY JOSE L Administration Acetaminophen 650 mg 08/24/17 12:44 09/07/17 08:11 Tylenol - PO 650 mg Q4H PRN Administration FEVER Al Hydroxide/Mg Hydroxide 30 ml 08/24/17 12:44 09/09/17 11:42 Mylanta Oral Suspension - PO 30 ml Q6H PRN Administration DYSPEPSIA Albuterol Sulfate 2 puff 08/24/17 12:45 Ventolin Hfa Inhaler - IH Q4H PRN ASTHMA Amlodipine Besylate 10 mg 09/01/17 12:15 09/11/17 09:58 Norvasc - PO 10 mg DAILY JOSE L Administration Atorvastatin Calcium 20 mg 08/24/17 22:00 09/11/17 21:15 Lipitor - PO 20 mg HS JOSE L Administration Colloidal Oatmeal 1 applic 08/24/17 14:12 09/03/17 21:19 Aveeno Soap - TP 1 bar DAILY PRN Administration HYGEINE Docusate Sodium 100 mg 09/02/17 22:00 09/12/17 06:30 Colace - PO 100 mg TID JOSE L Administration Escitalopram Oxalate 20 mg 08/25/17 10:00 09/11/17 09:58 Lexapro - PO 20 mg DAILY JOSE L Administration Eucalyptus/Menthol/Phenol/Sorbitol 1 each 08/24/17 12:44 Cepastat Lozenge - MM Q4H PRN SORE THROAT Fenofibric Acid 135 mg 08/25/17 10:00 09/11/17 09:57 Trilipix - PO 135 mg DAILY JOS EL Administration Ferrous Sulfate 325 mg 08/25/17 10:00 09/11/17 09:58 Feosol - PO 325 mg DAILY JOSE L Administration Gabapentin 300 mg 08/25/17 22:00 09/11/17 21:15 Neurontin - PO 300 mg HS JOSE L Administration Guaifenesin 10 ml 08/24/17 12:44 09/11/17 21:18 Robitussin Dm - PO 10 ml Q6H PRN Administration COUGH Hydrocortisone 1 applic 08/24/17 22:00 09/11/17 21:15 Hytone 1% Cream - TP Not Given BID JOSE L Hydrocortisone Acetate 25 mg 09/04/17 22:00 09/11/17 21:16 Anusol Hc Suppository - RC 25 mg HS JOSE L Administration Hydroxyzine Pamoate 50 mg 08/24/17 12:44 Vistaril - PO Q4H PRN AGITATION Lactic Acid 1 applic 08/24/17 14:11 09/04/17 10:04 Lac-Hydrin 12 TP 1 applic BID PRN Administration DRY SKIN Loperamide HCl 4 mg 08/24/17 12:44 Imodium - PO Q6H PRN DIARRHEA Losartan Potassium 50 mg 09/01/17 12:15 09/11/17 09:58 Cozaar - PO Not Given DAILY JOSE L Magnesium Citrate 300 ml 08/24/17 12:44 Citroma - PO Q48H PRN CONSTIPATION Magnesium Hydroxide 30 ml 08/24/17 12:44 Milk Of Magnesia - PO DAILY PRN CONSTIPATION Melatonin 5 mg 08/24/17 22:00 08/24/17 21:21 Melatonin PO 5 mg HS PRN Administration INSOMNIA Metformin HCl 750 mg 08/24/17 16:30 09/12/17 06:30 Glucophage Xr - PO 750 mg BID@0700,1630 [facility] Administration Mupirocin 1 applic 09/02/17 22:00 09/11/17 21:16 Bactroban 2% Cream - TP Not Given BID JOSE L Nicotine 21 mg 08/25/17 10:00 09/11/17 09:57 Nicoderm Patch - TD 21 mg DAILY JOSE L Administration Nicotine Polacrilex 2 mg 08/24/17 12:44 Nicorette Gum - BUC Q2H PRN NICOTINE REPLACEMENT RX Patient's Own 1 dose 08/24/17 14:16 09/11/17 09:57 Medication (Non- TP 1 dose Formulary) (Abreva 1 DAILY PRN Administration Dose) FOR ITCHING Multivit/Folic Acid/Iron 1 tab 08/25/17 10:00 09/11/17 09:58 Vitamins (Sjr) - PO 1 tab DAILY JOSE L Administration Pseudoephedrine/Triprolidine 1 combo 08/24/17 12:44 Actifed - PO TID PRN NASAL CONGESTION Ranitidine HCl 150 mg 08/24/17 22:00 09/11/17 21:15 Zantac - PO 150 mg BID JOSE L Administration Rivaroxaban 10 mg 08/25/17 10:00 09/11/17 09:59 Xarelto - PO 10 mg DAILY JOSE L Administration Thiamine HCl 100 mg 08/24/17 22:00 09/11/17 21:15 Vitamin B1 - PO 100 mg HS JOSE L Administration Trazodone HCl 100 mg 08/27/17 22:00 09/11/17 21:16 Desyrel - PO 100 mg HS JOSE L Administration Current Side Effect: No Lab tests ordered: No Lab tests reviewed: Yes Provider note:: Patient completed this program today.She has met her treatment goals and will continue to address her issues on outpatient basis at [facility] in the [place] .Patient reports finding that current medications:Trazodone 100 mg po hs,Neurontin 300 mg po hs and Lexapro 20 mg po daily help to cope with depression,anxiety,moood instability and sleeping difficulties.Scripts for 30 days provided. Supportive therapy provided focusing on relapse prevention including discussion coping skills,support utilization for recovery maintenance. Patient is stable for discharge today. Total face to face time:: 30 Mental Status Exam - Mental Status Exam Alert and Oriented to: Time, Place, Person Cognitive Function: Grossly Intact Patient Appearance: Well Groomed Mood: Hopeful, Euthymic Affect: Appropriate, Mood Congruent Patient Behavior: Cooperative Speech Pattern: Clear Voice Loudness: Normal Thought Process: Goal Oriented Thought Disorder: Not Present Hallucinations: Denies Suicidal Ideation: Denies Homicidal Ideation: Denies Insight/Judgement: Fair Sleep: Fair Appetite: Good Muscle strength/Tone: Normal Gait/Station: Normal Psychiatric Treatment Plan - Problem List (1) Alcohol dependence Current Visit: Yes (2) History of carpal tunnel surgery Current Visit: Yes (3) History of pulmonary embolism Current Visit: Yes (4) Osteoarthritis Current Visit: Yes (5) HIV (human immunodeficiency virus infection) Current Visit: Yes (6) History of cervical cancer Current Visit: No (7) Neuropathy Current Visit: Yes (8) Nicotine dependence Current Visit: Yes Qualifiers: Nicotine product type: cigarettes Substance use status: uncomplicated Qualified Code(s): F17.210 - Nicotine dependence, cigarettes, uncomplicated (9) History of neck surgery Current Visit: Yes (10) Substance induced mood disorder Current Visit: Yes (11) Cocaine dependence Current Visit: Yes (12) Essential (primary) hypertension Current Visit: Yes (13) Asthma Current Visit: No Qualifiers: Asthma severity: moderate (14) DM2 (diabetes mellitus, type 2) Current Visit: Yes Qualifiers: Diabetes mellitus long term care administrator insulin use: without correction use Diabetes mellitus complication status: without complication Qualified Code(s): E11.9 - Type 2 diabetes mellitus without complications (15) Cocaine dependence Current Visit: Yes Qualifiers: Substance use status: uncomplicated Qualified Code(s): F14.20 - Cocaine dependence, uncomplicated
== END 2017-09-12 10:05 | disposition home or self-care (01) | DRG 772 ==
LOC: YASAS 10:25 → Y3E 10:26
PROVIDERS: ADMIT Psychiatry & Neurology Psychiatry; ATTEND Psychiatry & Neurology Psychiatry
PROC: HZ42ZZZ Group Counseling for Substance Abuse Treatment, Cognitive-Behavioral (ICD-10-PCS; principal; 2017-08-24)
DX: F14.20 Cocaine dependence, uncomplicated (principal); F10.20 Alcohol dependence, uncomplicated; J45.40 Moderate persistent asthma, uncomplicated; F17.210 Nicotine dependence, cigarettes, uncomplicated; F19.24 Other psychoactive substance dependence with psychoactive substance-induced mood disorder; F51.05 Insomnia due to other mental disorder; Z21 Asymptomatic human immunodeficiency virus [HIV] infection status; I10 Essential (primary) hypertension; G62.9 Polyneuropathy, unspecified; M19.90 Unspecified osteoarthritis, unspecified site; K59.00 Constipation, unspecified; K64.9 Unspecified hemorrhoids; L02.91 Cutaneous abscess, unspecified; Z85.41 Personal history of malignant neoplasm of cervix uteri; Z92.89 Personal history of other medical treatment
CPT/HCPCS: 82962